=== PATIENT | female | born 1990 | race Caucasian/White ===

== ENCOUNTER 2019-10-11 17:19 | Outpatient (RCR) | payer BC, SELFPAY ==
[2019-10-11 17:57] LABS: Hematocrit 31.6 % (37.0-47.0); Hemoglobin 10.5 g/dL (12.0-15.0); Mean Corpuscular HGB Conc 33.2 g/dl (32-36); Mean Corpuscular Hemoglobin 29.3 pg (26-34); Mean Corpuscular Volume 88.3 fl (80-100); Mean Platelet Volume 10.1 fl (7.4-10.4); Platelet Count Result 233 k/mm3 (150-375); Red Blood Count 3.58 M/mm3 (4.2-5.4); Red Cell Distribution Width 13.4 % (11.5-14.5); White Blood Count 15.1 K/mm3 (4.5-10.0)
[2019-10-11 18:12] LABS: Alanine Aminotransferase 7 U/L (4-35); Aspartate Amino Transferase 16 U/L (14-36); Estimated Glomerular Filt Rate > 60; Uric Acid 2.3 mg/dL (2.5-7.5)
[2019-10-11 19:10] LABS: HIV 1/2 Ab P24 Ag Result Negative (Negative)
[2019-10-12 09:48] LABS: Rapid Plasma Reagin Non-Reactive (NonReactive)
[2019-10-13] MEDS: RHO(D) IMMUNE GLOBULIN 300 MCG SYRINGE IM (13:37)
== END 2020-01-09 23:59 | disposition home or self-care (01) ==
LOC: ANHLAB 17:19
PROVIDERS: PCP Obstetrics & Gynecology; Visit Provider Obstetrics & Gynecology
DX: Z29.13 Encounter for prophylactic Rho(D) immune globulin (principal); Z11.4 Encounter for screening for human immunodeficiency virus [HIV]; O36.0130 Maternal care for anti-D [Rh] antibodies, third trimester, not applicable or unspecified; R60.0 Localized edema; Z3A.00 Weeks of gestation of pregnancy not specified
CPT/HCPCS: 36415; 82565; 84450; 84460; 84550; 85027; 85461; 86592; 86703; 90384; 96372; G0432; J2790

== ENCOUNTER 2019-10-13 11:25 | Outpatient (CLI) | payer BC, SELFPAY ==
[2019-10-13 14:24] LABS: Glucose 1 Hour PP 50gm Dose 151 mg/dL
[2019-10-13 19:14] LABS: Total Volume 24 Hour Urine 1200 ml
[2019-10-13 19:15] LABS: Total Volume 24 Hour Urine 1200 ml
[2019-10-13 19:23] LABS: Total Protein Urine 24 Hr 156 MG/DAY (28-141); Total Protein Urine Random 13 mg/dL
[2019-10-13 19:24] LABS: Creatinine 24 Hour Urine 1.1 gm/24 (0.8-1.8); Creatinine Urine 98.2 mg/dL
[2019-10-14 06:31] LABS: HIV 1/2 Ab P24 Ag Result Negative (Negative)
== END 2019-10-13 11:26 | disposition home or self-care (01) ==
LOC: ANHLAB 11:27
PROVIDERS: PCP Obstetrics & Gynecology; Visit Provider Obstetrics & Gynecology
DX: O36.0130 Maternal care for anti-D [Rh] antibodies, third trimester, not applicable or unspecified (principal); Z36.89 Encounter for other specified antenatal screening
CPT/HCPCS: 36415; 81050; 82570; 82947; 84156; 86703; G0432

== ENCOUNTER 2019-11-04 11:49 | Outpatient (CLI) | payer OTHER, SELFPAY ==
[2019-11-04 12:10] VITALS: BP 146/88; PULSE 81; TEMP 36.6
[2019-11-04 12:31] VITALS: BP 135/84; PULSE 79
[2019-11-04 12:46] VITALS: BP 140/81; PULSE 69
[2019-11-04 12:50] VITALS: BP 140/81; PULSE 80
== END 2019-11-04 12:55 | disposition home or self-care (01) ==
LOC: ANHOBOP 11:58 → ANHOBPP 12:00
PROVIDERS: Visit Provider Obstetrics & Gynecology
DX: O42.90 Premature rupture of membranes, unspecified as to length of time between rupture and onset of labor, unspecified weeks of gestation (principal); Z3A.00 Weeks of gestation of pregnancy not specified
CPT/HCPCS: 59025; 84112; 99199

== ENCOUNTER 2019-11-18 15:48 | Outpatient (CLI) | payer OTHER, SELFPAY ==
[2019-11-18 16:16] VITALS: BP 152/90; PULSE 86
[2019-11-18 16:31] VITALS: BP 145/90; PULSE 84
[2019-11-18 16:34] VITALS: BP 152/90; PULSE 86
[2019-11-18 16:41] LABS: Basophils Absolute Auto 0.1 K/mm3 (0.0-0.1); Basophils Percent Auto 0.4 % (0.2-1.2); Eosinophils Absolute Auto 0.1 K/mm3 (0-0.3); Eosinophils Percent Auto 0.9 % (0-4.4); Hematocrit 32.6 % (37.0-47.0); Immature Granulocyte Absolute 0.05 K/mm3 (0.00-0.031); Immature Granulocyte Percent A 0.4 % (0-0.5); Lymphocytes Absolute Auto 2.01 K/mm3 (0.9-3.2); Lymphocytes Percent Auto 15.6 % (18.3-44.2); Mean Corpuscular HGB Conc 33.7 g/dl (32-36); Mean Corpuscular Hemoglobin 29.9 pg (26-34); Mean Corpuscular Volume 88.6 fl (80-100); Mean Platelet Volume 11.4 fl (7.4-10.4); Monocytes Absolute Auto 0.9 K/mm3 (0.1-0.6); Monocytes Percent Auto 6.8 % (2.6-8.5); Neutrophils Absolute Auto 9.8 K/mm3 (1.3-6.7); Neutrophils Percent Auto 75.9 % (45.5-73.1); Platelet Count Result 198 k/mm3 (150-375); Red Blood Count 3.68 M/mm3 (4.2-5.4); White Blood Count 12.9 K/mm3 (4.5-10.0)
[2019-11-18 16:44] LABS: Add Urine Microscopic? NO; Appearance Urine Clear (Clear); Bilirubin Urine Negative (Negative); Blood Urine Negative (Negative); Color Urine Yellow (Yellow); Glucose Urine UA Negative (Negative); Ketones Urine Negative (Negative); Leukocyte Esterase Ur Negative LEU/UL (Negative); Nitrate Urine Negative (Negative); Protein Urine Negative (Negative); Specific Grav Ur 1.018 (1.001-1.035); Urobilinogen Urine Negative mg/dL (<2.0)
[2019-11-18 16:46] VITALS: BP 138/78; PULSE 87
[2019-11-18 16:52] LABS: Creatinine Urine 100.7 mg/dL; Total Protein Urine Random 24 mg/dL
[2019-11-18 16:53] LABS: Alanine Aminotransferase 8 U/L (4-35); Albumin Level 3.6 g/dL (3.5-5.1); Alkaline Phosphatase 106 U/L (38-126); Anion Gap 10.1 mmol/L (7-16); Aspartate Amino Transferase 17 U/L (14-36); Bilirubin,Total < 0.1 mg/dL (0.2-1.3); Blood Urea Nitrogen 9 mg/dL (7-17); Calcium 9.9 mg/dL (8.4-10.2); Carbon Dioxide 23 mmol/L (22-30); Chloride 105 mmol/L (98-107); Estimated Glomerular Filt Rate > 60; Glucose 102 mg/dL (65-105); Potassium 4.1 mmol/L (3.4-5.0); Sodium 134 mmol/L (137-145); Uric Acid 3.2 mg/dL (2.5-7.5)
[2019-11-18 17:01] VITALS: BP 133/82; PULSE 79
[2019-11-18 17:16] VITALS: BP 134/84; PULSE 67
--- NOTE | 2019-11-18 17:25 | PC.NURSE ---
Dr. Masters informed of reactive NST, BP's, and lab results. Order for discharge received.
== END 2019-11-18 17:31 | disposition home or self-care (01) ==
LOC: ANHOBOP 15:55 → ANHLDR 15:57
PROVIDERS: Family Provider Obstetrics & Gynecology; Visit Provider Obstetrics & Gynecology
DX: O13.9 Gestational [pregnancy-induced] hypertension without significant proteinuria, unspecified trimester (principal); Z3A.00 Weeks of gestation of pregnancy not specified
CPT/HCPCS: 36415; 59025; 80053; 81003; 82570; 84156; 84550; 85025; 99199

== ENCOUNTER 2019-11-22 00:01 | Inpatient (IN) | payer OTHER, SELFPAY ==
[2019-11-22] VITALS (55 sets, daily range): BP systolic 123–169; BP diastolic 70–101; PULSE 76–99; TEMP 36.6–37.1; O2SAT 97–100; BMI 50.3
--- NOTE | 2019-11-22 02:30 | LDADM ---
This patient, Henrietta Han, was admitted to Labor/Delivery/Recovery 105 on 11/22/19 at 00:01. Plans for labor, pain management and were discussed with patient. Patient/family oriented to hospital policies and general routines including ID bracelet, bed and alarms, visiting hours, pain management, procedures, bathroom and other care routines, personal items, smoking policy, room service/diet and guest tray routines, infant security routines, and visiting hours. Patient/Family are encouraged to report perceived risks to care and to ask questions if they do not understand what they are told or what they should do. See OBIX for further documentation.
[2019-11-22] MEDS: DINOPROSTONE 10 MG VAG INSERT VAGINAL ×2 (02:45→17:21)
[2019-11-22 02:47] LABS: Basophils Absolute Auto 0.1 K/mm3 (0.0-0.1); Basophils Percent Auto 0.4 % (0.2-1.2); Eosinophils Absolute Auto 0.1 K/mm3 (0-0.3); Eosinophils Percent Auto 0.9 % (0-4.4); Hematocrit 34.9 % (37.0-47.0); Hemoglobin 11.7 g/dL (12.0-15.0); Immature Granulocyte Absolute 0.07 K/mm3 (0.00-0.031); Immature Granulocyte Percent A 0.5 % (0-0.5); Lymphocytes Absolute Auto 2.96 K/mm3 (0.9-3.2); Lymphocytes Percent Auto 21.5 % (18.3-44.2); Mean Corpuscular HGB Conc 33.5 g/dl (32-36); Mean Corpuscular Hemoglobin 29.5 pg (26-34); Mean Corpuscular Volume 87.9 fl (80-100); Mean Platelet Volume 11.6 fl (7.4-10.4); Monocytes Absolute Auto 0.8 K/mm3 (0.1-0.6); Neutrophils Absolute Auto 9.7 K/mm3 (1.3-6.7); Neutrophils Percent Auto 70.7 % (45.5-73.1); Platelet Count Result 213 k/mm3 (150-375); Red Blood Count 3.97 M/mm3 (4.2-5.4); Red Cell Distribution Width 13.9 % (11.5-14.5); White Blood Count 13.8 K/mm3 (4.5-10.0)
[2019-11-22 03:38] LABS: Amphetamine Screen Urine Negative (Negative); Barbiturate Screen Urine Negative (Negative); Benzodiazepines Screen Urine Negative (Negative); Cannabinoid Screen Urine Positive (Negative); Cocaine Screen Urine Negative (Negative); Methadone Screen Urine Negative (Negative); Opiate Screen Urine Negative (Negative); Phencyclidine Screen Urine Negative (Negative)
[2019-11-22 04:30] LABS: Glucose Point of Care 88 (65-105)
--- NOTE | 2019-11-22 07:05 | WPDANESEPP ---
Anes - Eval Pre Procedure Procedure: Labor epidural Date/Time: 11/22/19 07:05 Surgeon: Sonam Preop Diagnosis: pain during labor Pre Op Diagnosis: IOL Patient Data Age: 29 Gender: F Height: 1.52 m Weight: 117 kg Last Vital Signs Temp 36.6 C 11/22/19 04:26 Pulse 77 11/22/19 04:01 BP 143/89 H 11/22/19 04:01 Pulse Ox 100 11/22/19 02:13 Allergies Allergy/AdvReac Type Severity Reaction Status Date / Time No Known Allergies Allergy Verified 04/20/19 19:32 Home Medications Medication Instructions Recorded Confirmed Type PNV cmb#95-ferrous fumarate-FA 1 tablet PO DAILY 11/04/19 11/22/19 History [] ferrous sulfate 325 mg PO DAILY 11/04/19 11/22/19 History insulin NPH isoph U-100 human 12 unit SUBCUT BID 11/04/19 11/22/19 History [Humulin N NPH U-100 Insulin] Laboratory Tests 11/22/19 11/22/19 11/22/19 02:39 02:39 02:39 WBC 13.8 K/mm3 H K/mm3 (4.5-10.0) RBC 3.97 M/mm3 L M/mm3 (4.2-5.4) Hgb 11.7 g/dL L g/dL (12.0-15.0) Hct 34.9 % L % (37.0-47.0) MCV 87.9 fl fl (80-100) MCH 29.5 pg pg (26-34) MCHC 33.5 g/dl g/dl (32-36) RDW 13.9 % % (11.5-14.5) Plt Count 213 k/mm3 k/mm3 (150-375) MPV 11.6 fl H fl (7.4-10.4) Immature Gran % (Auto) 0.5 % % (0-0.5) Neut % (Auto) 70.7 % % (45.5-73.1) Lymph % (Auto) 21.5 % % (18.3-44.2) [place] % (Auto) 6.0 % % (2.6-8.5) Eos % (Auto) 0.9 % % (0-4.4) Baso % (Auto) 0.4 % % (0.2-1.2) Lymph # (Auto) 2.96 K/mm3 K/mm3 (0.9-3.2) [place] # (Auto) 0.8 K/mm3 H K/mm3 (0.1-0.6) Eos # (Auto) 0.1 K/mm3 K/mm3 (0-0.3) Baso # (Auto) 0.1 K/mm3 K/mm3 (0.0-0.1) Abs Immat Gran (auto) 0.07 K/mm3 H K/mm3 (0.00-0.031) Absolute Neuts (auto) 9.7 K/mm3 H K/mm3 (1.3-6.7) Absolute Nucleated RBC 0.0 K/mm3 K/mm3 (0.0-0.012) Nucleated RBC % 0.0 % % (0.0-0.2) POC Capillary Glucose Urine Opiates Screen Urine Methadone Screen Ur Barbiturates Screen Ur Phencyclidine Scrn Ur Amphetamine Screen U Benzodiazepines Scrn Urine Cocaine Screen U Cannabinoids Screen RPR Pending Blood Type O Negative Antibody Screen Positive Antibody Identification Passive Due to RH Imm Glob Antigen Identification Cancelled MIGDALIA, IgG Interpret Not Performed MIGDALIA, Poly Interpret Negative MIGDALIA, Complement Interp Not Performed 11/22/19 11/22/19 03:06 04:24 WBC RBC Hgb Hct MCV MCH MCHC RDW Plt Count MPV Immature Gran % (Auto) Neut % (Auto) Lymph % (Auto) Riley % (Auto) Eos % (Auto) Baso % (Auto) Lymph # (Auto) Riley # (Auto) Eos # (Auto) Baso # (Auto) Abs Immat Gran (auto) Absolute Neuts (auto) Absolute Nucleated RBC Nucleated RBC % POC Capillary Glucose 88 mg/dl mg/dl (65-105) Urine Opiates Screen Negative (Negative) Urine Methadone Screen Negative (Negative) Ur Barbiturates Screen Negative (Negative) Ur Phencyclidine Scrn Negative (Negative) Ur Amphetamine Screen Negative (Negative) U Benzodiazepines Scrn Negative (Negative) Urine Cocaine Screen Negative (Negative) U Cannabinoids Screen Positive A (Negative) RPR Blood Type Antibody Screen Antibody Identification Antigen Identification MIGDALIA, IgG Interpret MIGDALIA, Poly Interpret MIGDALIA, Complement Interp Pat
--- NOTE | 2019-11-22 07:47 | WPDOBADMIT ---
Obstetrics - Admit Note Admission Note: 29 y/o G1 @ 37 weeks here for induction of labor d/t gestational hypertension. is also complicated by insulin controlled GDM. Plan cervidil and pitocin Anticipate record reviewed. No pertinent additions to the history and/or any subsequent changes in the physical findings that are not consistent with the expected course of the were found. Additions to the history and/or subsequent changes in the physical findings follow. None.
[2019-11-22 08:21] LABS: Rapid Plasma Reagin Non-Reactive (NonReactive)
[2019-11-22 10:36] LABS: Glucose Point of Care 106 (65-105)
[2019-11-22 16:04] LABS: Glucose Point of Care 117 (65-105)
[2019-11-22 18:40] LABS: Glucose Point of Care 135 (65-105)
[2019-11-22 19:08] LABS: Basophils Absolute Auto 0.1 K/mm3 (0.0-0.1); Basophils Percent Auto 0.4 % (0.2-1.2); Eosinophils Absolute Auto 0.1 K/mm3 (0-0.3); Eosinophils Percent Auto 0.5 % (0-4.4); Hemoglobin 10.1 g/dL (12.0-15.0); Immature Granulocyte Absolute 0.05 K/mm3 (0.00-0.031); Immature Granulocyte Percent A 0.4 % (0-0.5); Lymphocytes Absolute Auto 1.98 K/mm3 (0.9-3.2); Lymphocytes Percent Auto 14.4 % (18.3-44.2); Mean Corpuscular HGB Conc 33.7 g/dl (32-36); Mean Corpuscular Hemoglobin 29.8 pg (26-34); Mean Corpuscular Volume 88.5 fl (80-100); Mean Platelet Volume 11.5 fl (7.4-10.4); Monocytes Absolute Auto 0.9 K/mm3 (0.1-0.6); Monocytes Percent Auto 6.5 % (2.6-8.5); Neutrophils Absolute Auto 10.7 K/mm3 (1.3-6.7); Neutrophils Percent Auto 77.8 % (45.5-73.1); Platelet Count Result 200 k/mm3 (150-375); Red Blood Count 3.39 M/mm3 (4.2-5.4); Red Cell Distribution Width 13.9 % (11.5-14.5); White Blood Count 13.8 K/mm3 (4.5-10.0)
[2019-11-22 19:19] LABS: Alanine Aminotransferase 8 U/L (4-35); Albumin Level 3.2 g/dL (3.5-5.1); Alkaline Phosphatase 99 U/L (38-126); Aspartate Amino Transferase 16 U/L (14-36); Bilirubin,Total 0.3 mg/dL (0.2-1.3); Blood Urea Nitrogen 10 mg/dL (7-17); Calcium 8.6 mg/dL (8.4-10.2); Carbon Dioxide 21 mmol/L (22-30); Chloride 105 mmol/L (98-107); Estimated CRCL calculation 122 ml/min; Estimated Glomerular Filt Rate > 60; Glucose 119 mg/dL (65-105); Sodium 132 mmol/L (137-145); Uric Acid 3.8 mg/dL (2.5-7.5)
[2019-11-23] VITALS (147 sets, daily range): BP systolic 99–231; BP diastolic 51–171; PULSE 61–119; TEMP 36.6–37.4; O2SAT 94–100
[2019-11-23 00:17] LABS: Glucose Point of Care 86 (65-105)
[2019-11-23] MEDS: LACTATED RINGERS 1,000 ML 125 ML IV CONT ×3 (00:45→23:52)
[2019-11-23] MEDS: OXYTOCIN 30 UNITS/NS 500 ML 30 UNITS/500 ML BAG IV CONT ×2 (02:19→21:13)
[2019-11-23 05:23] LABS: Glucose Point of Care 102 (65-105)
--- NOTE | 2019-11-23 07:48 | PM.OBPNLAB ---
Pain Control Date/time seen: 11/23/19 07:48 pt comfortable FHR cat 1, contractions irregular, SVE /-2 anterior, continue pitocin
[2019-11-23 12:17] LABS: Glucose Point of Care 88 (65-105)
[2019-11-23 15:25] LABS: Glucose Point of Care 81 (65-105)
--- NOTE | 2019-11-23 17:53 | PM.OBPNLAB ---
Pain Control Date/time seen: 11/23/19 17:53 FHR cat 1, contractions hard to monitor SVE 1-2//-2, Arom large amount of clear odorless fluid, IUPC placed
[2019-11-23 22:47] LABS: Glucose Point of Care 74 (65-105)
[2019-11-24] VITALS (251 sets, daily range): BP systolic 100–164; BP diastolic 55–129; PULSE 77–146; RESP 16–20; TEMP 35.9–37.7; O2SAT 91–100
[2019-11-24 00:44] LABS: Glucose Point of Care 89 (65-105)
[2019-11-24 04:11] LABS: Glucose Point of Care 90 (65-105)
--- NOTE | 2019-11-24 08:17 | PM.OBPNLAB ---
Pain Control Date/time seen: 11/24/19 08:17 VSS Contractions regular. MVU's just under 200 per nurse FHR category 1 Cervix 5//-2 Pt doing well and states she has been able to rest. Continue with induction
[2019-11-24] MEDS: AMPICILLIN 2 GM/NS 100 ML 2 GM/100 ML BAG IVPB (10:32)
[2019-11-24 10:51] LABS: Glucose Point of Care 96 (65-105)
--- NOTE | 2019-11-24 10:57 | PM.OBPNVD ---
OB - PN: Subj Subjective Date/time seen: 11/24/19 10:57 This patient is a 29-year-old primipara who has been in labor for about 20 hours. She has had cervical ripening twice. She has significant amount of edema in the vulva and cervix. There is inadequate labor and there is nonreassuring heart tones. I have discussed with the patient reviewed perform delivery. She understands the risks, benefits, and alternatives. She has completed the informed consent process is ready to proceed. OB - PN: Obj Data Labs CBC & Chem 7: 11/22/19 19:02 11/22/19 19:02 Labs: Laboratory Results - last 24 hr 11/23/19 11/23/19 11/23/19 10:54 15:22 22:36 POC Capillary Glucose 88 81 74 11/24/19 11/24/19 11/24/19 00:41 04:09 10:30 POC Capillary Glucose 89 90 96 OB - PN A/P Assessment and Plan (1) Non-reassuring status, delivered, current hospitalization: Code(s): O75.89 - Other specified complications of labor and delivery Status: Acute (2) Failure to progress in first stage of labor: Status: Acute Assessment and Plan: This patient is a 29-year-old primipara who has been in labor for about 20 hours. She has had cervical ripening twice. She has significant amount of edema in the vulva and cervix. There is inadequate labor and there is nonreassuring heart tones. I have discussed with the patient reviewed perform delivery. She understands the risks, benefits, and alternatives. She has completed the informed consent process is ready to proceed. Time Spent With Patient Time: Total time spent is greater than 50% in coordination of care (as documented) at patient's floor/unit and/or counseling patient: Review of Systems Constitutional: Constitutional: Reports no additional constitutional complaints, Denies fatigue, Denies headache(s), Denies lethargy and Denies weakness Eyes: Eyes: Reports no additional eye complaints, Denies blurry vision and Denies photophobia ENT: Reports as per HPI, Denies headache(s) and Denies neck pain Cardiovascular: Cardiovascular: Denies chest pain, Denies diaphoresis, Denies leg edema, Denies palpitations and Denies dyspnea Respiratory: Respiratory: Denies hemoptysis, Denies dyspnea and Denies wheezing Gastrointestinal: Gastrointestinal: Denies abdominal pain, Denies melena, Denies bloating, Denies hematochezia, Denies nausea and Denies vomiting Genitourinary: Genitourinary: Reports no additional female genitourinary complaints Musculoskeletal: Musculoskeletal: Denies joint swelling, Denies neck pain, Denies numbness and Denies stiffness Neurologic: Denies Abnormal speech present, Denies confusion, Denies headache(s), Denies numbness and Denies weakness Psychiatric: Psychiatric: Denies anxiety, Denies confusion, Denies depression, Denies homicidal ideation and Denies suicidal ideation Endocrine: Endocrine: Denies fatigue and Denies palpitations Allergic/Immunologic: Allergic/Immunologic: Denies wheezing Exam Const: General: comfortable, no acute distress and alert Resp: Effort & Inspection: normal respiratory effort Auscultation: no crackles, no rales and no rhonchi Cardio: Rate: regular rate Heart sounds: no click, no murmurs and no rubs GI: Inspection: non-distended GI Palp: No Tenderness to palpation present (GI) Auscultation: normal bowel sounds Other: Incision - CDI Extrem: General: normal to inspection, no pedal edema and no calf tenderness
[2019-11-24] MEDS: ceFAZolin 2 GM/D5W 50 ML 2 GM/50 ML BAG IVPB (11:39)
--- NOTE | 2019-11-24 12:36 | P.OP_ITS ---
Procedure Note - Detailed Date of procedure: 11/24/19 Pre-op diagnosis: IOL Nonreassuring heart tones, failure to progress Post-op diagnosis: same ( malposition of the head) Procedure performed: low-transverse delivery Description of procedure: The patient was taken the operating room. She was prepped and draped in the dorsal supine position with leftward tilt after induction of spinal anesthetic. When anesthesia was found to be adequate a low- transverse skin incision was made and carried down to the level the fascia with the knife. The fascial incision was made at the midline with a scalpel. The fascial incision was extended laterally with Carrington scissors. The fascia was tented upward superior and inferior with Reuben clamps. The rectus muscles were dissected off bluntly. The rectus muscles at the midline. The preperitoneal fat was dissected bluntly at the superior aspect of the separate the rectus muscles. The peritoneal cavity was entered bluntly in the same area. The peritoneal incision was extended superior and inferior with good visualization of bladder. Bladder blade was inserted. A low-transverse incision was made on the uterus with the scalpel. It was carried down the level of the amniotic cavity with a knife. The amniotic cavity bluntly. The uterine incision was made laterally with blunt traction. The was delivered. The cord was clamped and cut. The was handed off to waiting pediatric staff. Cord bloods were obtained. The placenta was removed manually. The uterus was exteriorized. Uterus cleared of all clots and debris. Uterus closed in 0 Vicryl in a running locked fashion. An imbricating layer of 0 Vicryl was also placed on the to bolster the closure. The uterus was returned to the abdomen. The gutters were cleared of all clots and debris. The fascia was closed 0 Vicryl in a running fashion. Subcutaneous tissue was irrigated and bleeding areas were cauterized. The skin was closed with subcuticular absorbable bhargavi. The incision was covered with derma hector. The patient tolerated the procedure well. She was taken recovery room stable condition. Sponge, lap, needle counts were correct x2. Anesthesia: spinal Surgeon: Maria Elena Masters MD Estimated blood loss (mL): 500 Drains: No Packing: No Pathology: none sent Complications: No immediate complications Condition: stable Disposition: floor Findings: Normal maternal anatomy. Average size infant with normal Apgars. malposition of head, direct OP
[2019-11-24] MEDS: OXYTOCIN 30 UNITS/NS 500 ML 30 UNITS/500 ML BAG 125 UNITS IV CONT (15:20)
--- NOTE | 2019-11-24 15:29 | PC.NURSE ---
Patient transferred to post room # 286 via stretcher. PT introductions made and plan of care discussed per postop c section, pain management, botte feeding, daily care activities and blod sugar policy. Support person present. Oriented to unit, room, information board, rooming in, admission packet and security measures. Patient verbalizes understanding.
[2019-11-24] MEDS: KETOROLAC 30 MG/ML VIAL (*BKC) IV PUSH (16:30)
[2019-11-24] MEDS: SIMETHICONE 80 MG TAB.CHEW PO (16:30)
[2019-11-24] MEDS: POLYSACCHARIDE IRON COMPLEX 150 MG CAPSULE PO (17:32)
[2019-11-24] MEDS: DOCUSATE SODIUM 100 MG CAPSULE PO (17:32)
[2019-11-24] MEDS: LORATADINE 10 MG TABLET (17:32)
[2019-11-25] MEDS: IBUPROFEN 600 MG TABLET PO ×3 (00:18→17:23)
[2019-11-25 04:30] VITALS: BP 112/77; PULSE 69; RESP 16; TEMP 36.4; O2SAT 96
[2019-11-25 05:18] LABS: Basophils Percent Auto 0.1 % (0.2-1.2); Eosinophils Percent Auto 0.2 % (0-4.4); Hematocrit 27.7 % (37.0-47.0); Immature Granulocyte Absolute 0.11 K/mm3 (0.00-0.031); Immature Granulocyte Percent A 0.5 % (0-0.5); Lymphocytes Absolute Auto 1.51 K/mm3 (0.9-3.2); Lymphocytes Percent Auto 7.5 % (18.3-44.2); Mean Corpuscular HGB Conc 32.5 g/dl (32-36); Mean Corpuscular Hemoglobin 29.2 pg (26-34); Mean Corpuscular Volume 89.9 fl (80-100); Mean Platelet Volume 11.6 fl (7.4-10.4); Monocytes Absolute Auto 1.2 K/mm3 (0.1-0.6); Monocytes Percent Auto 5.9 % (2.6-8.5); Neutrophils Absolute Auto 17.3 K/mm3 (1.3-6.7); Neutrophils Percent Auto 85.8 % (45.5-73.1); Platelet Count Result 181 k/mm3 (150-375); Red Blood Count 3.08 M/mm3 (4.2-5.4); Red Cell Distribution Width 14.3 % (11.5-14.5); White Blood Count 20.2 K/mm3 (4.5-10.0)
--- NOTE | 2019-11-25 07:54 | PM.OBPNVD ---
OB - PN: Subj Subjective Date/time seen: 11/25/19 07:54 Patient comments: no complaints, pain well controlled, tolerating diet and flatus present OB - PN: Obj Data Labs CBC & Chem 7: 11/25/19 04:39 11/22/19 19:02 Labs: Laboratory Results - last 24 hr 11/24/19 11/25/19 11/25/19 10:30 04:39 04:39 WBC 20.2 H RBC 3.08 L Hgb 9.0 L Hct 27.7 L MCV 89.9 MCH 29.2 MCHC 32.5 RDW 14.3 Plt Count 181 MPV 11.6 H Immature Gran % (Auto) 0.5 Neut % (Auto) 85.8 H Lymph % (Auto) 7.5 L [place] % (Auto) 5.9 Eos % (Auto) 0.2 Baso % (Auto) 0.1 L Lymph # (Auto) 1.51 [place] # (Auto) 1.2 H Eos # (Auto) 0.0 Baso # (Auto) 0.0 Abs Immat Gran (auto) 0.11 H Absolute Neuts (auto) 17.3 H Absolute Nucleated RBC 0.0 Nucleated RBC % 0.0 POC Capillary Glucose 96 Blood Type O Negative Antibody Screen TNP Screen Negative Baby's Blood Type O pos Baby's MIGDALIA Negative Doses of RhIg Required 1 OB - PN A/P Plan day: 1 Comments: Post Op LTCS - no problems, routine recovery Time Spent With Patient Time: Total time spent is greater than 50% in coordination of care (as documented) at patient's floor/unit and/or counseling patient: Exam Const: General: cooperative, healthy appearing, comfortable and no acute distress Resp: Auscultation: no crackles, no rales, no rhonchi and no wheezes Cardio: Rhythm: regular rhythm Heart sounds: no click and no murmurs GI: Inspection: non-distended Auscultation: normal bowel sounds Extrem: General: normal to inspection, no pedal edema and no calf tenderness
[2019-11-25 07:55] VITALS: BP 119/71; PULSE 86; RESP 18; TEMP 36.9; O2SAT 99
[2019-11-25] MEDS: MULTIVIT/MIN/PREN/FOL AC/IRON TABLET 1 TAB PO (09:08)
[2019-11-25] MEDS: POLYSACCHARIDE IRON COMPLEX 150 MG CAPSULE PO ×2 (09:08→17:22)
[2019-11-25] MEDS: DOCUSATE SODIUM 100 MG CAPSULE PO ×2 (09:08→17:22)
[2019-11-25] MEDS: SIMETHICONE 80 MG TAB.CHEW PO ×2 (09:09→17:22)
--- NOTE | 2019-11-25 10:12 | WPDANLDPN2 ---
Anes-Prog Note L&D Date/Time: 11/25/19 10:12 Comfortable throughout: labor and section Neuraxial method: epidural Epidural/Spinal procedure site: clean & non-tender Neuro status: Neuro function grossly intact. Cardiovascular status: normal Respiratory status: normal Airway patency: baseline Mental status: baseline Post-Op hydration status: normal Vital Signs: Last Vital Signs Temp 36.9 C 11/25/19 07:55 Pulse 86 11/25/19 07:55 Resp 18 11/25/19 07:55 BP 119/71 11/25/19 07:55 Pulse Ox 99 11/25/19 07:55 I/O: Intake & Output 11/24/19 11/25/19 11/25/19 23:59 07:59 15:59 Intake Total 900 240 Output Total 330 1200 Balance 570 -960 Post-procedural complaints: none Patient feedback: Patient satisfied with anesthetic care.
--- NOTE | 2019-11-25 10:13 | WPDANLDNPN2 ---
Anes-Prog Note L&D-Neuraxial Date/Time: 11/25/19 10:13 Neuraxial medications: epidural PF morphine Opiod-related complaints: none Patient feedback: Patient satisfied with post-operative pain management.
[2019-11-25 12:20] VITALS: BP 134/83; PULSE 87; RESP 16; TEMP 36.8; O2SAT 98
[2019-11-25] MEDS: RHO(D) IMMUNE GLOBULIN 300 MCG SYRINGE IM (14:45)
[2019-11-25 19:50] VITALS: BP 142/84; PULSE 96; RESP 16; TEMP 36.9; O2SAT 97
--- NOTE | 2019-11-25 22:00 | PC.NURSE ---
Patient viewed the discharge video Mother & Baby Care, The First Two Weeks . Patient was given the opportunity and encouraged to ask questions. Patient verbalized understanding of information shared and has been given the mother/baby guide for home reference.
[2019-11-26] MEDS: IBUPROFEN 600 MG TABLET PO ×2 (05:23→12:08)
--- NOTE | 2019-11-26 07:18 | PM.OBPNVD ---
OB - PN: Subj Subjective Date/time seen: 11/26/19 07:18 Patient comments: no complaints, pain well controlled, incisional pain, tolerating diet and flatus present OB - PN: Obj Data Labs CBC & Chem 7: 11/25/19 04:39 11/22/19 19:02 Labs: Laboratory Results - last 24 hr 11/25/19 04:39 Blood Type O Negative Antibody Screen TNP Screen Negative Baby's Blood Type O pos Baby's MIGDALIA Negative Doses of RhIg Required 1 OB - PN A/P Plan day: 2 Plan: routine care and discharge home Comments: POD#2 LTCS - no problems, Time Spent With Patient Time: Total time spent is greater than 50% in coordination of care (as documented) at patient's floor/unit and/or counseling patient: Exam Const: General: comfortable, no acute distress and alert Resp: Effort & Inspection: normal respiratory effort Auscultation: no crackles, no rales and no rhonchi Cardio: Rate: regular rate Heart sounds: no click, no murmurs and no rubs GI: Inspection: non-distended GI Palp: No Tenderness to palpation present (GI) Auscultation: normal bowel sounds Other: Incision - CDI Extrem: General: normal to inspection, no pedal edema and no calf tenderness
--- NOTE | 2019-11-26 07:19 | P.DS_ITS ---
DS: Admitting Diagnosis Admitting Diagnosis Admitting Diagnosis: Other specified complications of labor and delivery DS: Discharge Diagnosis Discharge Diagnosis (1) delivery delivered: Code(s): O82 - Encounter for delivery without indication Status: Acute (2) Failure to progress in first stage of labor: Status: Acute (3) Non-reassuring status, delivered, current hospitalization: Code(s): O75.89 - Other specified complications of labor and delivery Status: Acute OB - DS: Summary OB Procedures : None OB Procedures Intrapartum: OB Procedures: : None Peripartum Data Delivery Method: Section Procedures: Procedures Operation Date: 11/24/19 11:30 Actual Procedures Side Surgeon p Section Maria Elena Masters MD complications: none Status at Discharge Functional status at discharge: independent ambulation Time Spent with Patient Time attestation: Total time spent providing and/or coordinating discharge services: DS: Data Data Completed and Pending Pending studies at discharge: Pending at discharge 11/24/19 12:52 Surgical [PTH] Routine Labs on day of discharge: Labs from last 24 hours 11/25/19 04:39 Blood Type O Negative Antibody Screen TNP Screen Negative Baby's Blood Type O pos Baby's MIGDALIA Negative Doses of RhIg Required 1 Discharge Plan Discharge Discharging Clinician: Maria Elena Masters Patient Disposition: Home, Self-Care Activity: pelvic rest Diet: regular Patient Instructions: Antibiotic Form Stand Alone Forms: General Discharge Information Follow-up/Referrals: Maria Elena Masters MD [Physician] - Discharge Medications: New hydrocodone-acetaminophen 5-325 mg tablet 1 - 2 tablet PO Q4H PRN (Reason: pain) Qty: 25 RF: 0 Continued ferrous sulfate 325 mg (65 mg iron) Tablet 325 mg PO DAILY RF: 0 PNV cmb#95-ferrous fumarate-FA [] 28 mg iron- 800 mcg Tablet 1 tablet PO DAILY RF: 0 Discontinued Humulin N NPH U-100 Insulin 100 unit/mL suspension 12 unit SUBCUT BID RF: 0 Date of admission: 11/22/19 00:01 Primary Care Provider: PHYSICIAN,ELECTRONICS DESIGN ENGINEER Admitting Provider: Maria Elena Masters Attending physician on admission: Maria Elena Masters
[2019-11-26] MEDS: MULTIVIT/MIN/PREN/FOL AC/IRON TABLET 1 TAB PO (08:50)
[2019-11-26] MEDS: DOCUSATE SODIUM 100 MG CAPSULE PO (08:50)
[2019-11-26] MEDS: POLYSACCHARIDE IRON COMPLEX 150 MG CAPSULE PO (08:51)
[2019-11-26 08:59] VITALS: BP 138/83; PULSE 91; RESP 18; TEMP 37.2; O2SAT 98
--- NOTE | 2019-11-26 11:17 | PCCCNOTE ---
Social Service Consult: Met with pt. and EDIL James today to discuss resources. Pt. lives at home with James. This is her first baby. James has three other children. Pt. reports family support including James. Pt. has everything she needs including a crib, carseat, clothing, and bottles. Pt. is currently on [facility] services and plans to add the baby at discharge. Pt. is aware of how to contact the [facility] office. Provided resources to the pt. Pt. reports recreational marijuana use. Mother was positive at admission, baby's UDS was negative. Meconium pending. Pt. denies any concerns regarding marijuana use. Pt. denies any further case management needs.
== END 2019-11-26 13:05 | disposition home or self-care (01) | DRG 540 ==
LOC: ANHLDR 00:33 → ANHOB2 11-24 15:37
PROVIDERS: Advanced Practice Midwife; Admitting Provider Obstetrics & Gynecology; Visit Provider Obstetrics & Gynecology
PROC: 10D00Z1 Extraction of Products of Conception, Low, Open Approach (ICD-10-PCS; CPT 59514; principal; 2019-11-24 11:30)
DX: O62.0 Primary inadequate contractions (principal); O62.1 Secondary uterine inertia; O76 Abnormality in fetal heart rate and rhythm complicating labor and delivery; O24.424 Gestational diabetes mellitus in childbirth, insulin controlled; O13.4 Gestational [pregnancy-induced] hypertension without significant proteinuria, complicating childbirth; O69.81X0 Labor and delivery complicated by cord around neck, without compression, not applicable or unspecified; Z3A.37 37 weeks gestation of pregnancy; Z37.0 Single live birth
CPT/HCPCS: 36415; 80053; 80307; 84550; 85025; 85461; 86592; 86850; 86880; 86900; 86901; 86902; 88307; 90384; A9270; J0131; J0290; J0690; J1200; J1885; J2274; J2405; J2590; J2704; J2790; J2795; J3010; J7120

== ENCOUNTER 2019-12-02 12:00 | Outpatient (CLI) | payer OTHER, SELFPAY ==
[2019-12-02] VITALS (20 sets, daily range): BP systolic 129–169; BP diastolic 84–105; PULSE 67–78
[2019-12-02 12:45] LABS: Basophils Absolute Auto 0.1 K/mm3 (0.0-0.1); Basophils Percent Auto 0.8 % (0.2-1.2); Eosinophils Absolute Auto 0.5 K/mm3 (0-0.3); Eosinophils Percent Auto 5.2 % (0-4.4); Hematocrit 30.3 % (37.0-47.0); Hemoglobin 9.9 g/dL (12.0-15.0); Immature Granulocyte Absolute 0.07 K/mm3 (0.00-0.031); Immature Granulocyte Percent A 0.8 % (0-0.5); Lymphocytes Absolute Auto 2.11 K/mm3 (0.9-3.2); Lymphocytes Percent Auto 22.6 % (18.3-44.2); Mean Corpuscular HGB Conc 32.7 g/dl (32-36); Mean Corpuscular Hemoglobin 29.4 pg (26-34); Mean Corpuscular Volume 89.9 fl (80-100); Mean Platelet Volume 9.5 fl (7.4-10.4); Monocytes Absolute Auto 0.5 K/mm3 (0.1-0.6); Neutrophils Absolute Auto 6.1 K/mm3 (1.3-6.7); Neutrophils Percent Auto 65.6 % (45.5-73.1); Platelet Count Result 427 k/mm3 (150-375); Red Blood Count 3.37 M/mm3 (4.2-5.4); White Blood Count 9.3 K/mm3 (4.5-10.0)
[2019-12-02 12:57] LABS: Alanine Aminotransferase 17 U/L (4-35); Albumin Level 3.7 g/dL (3.5-5.1); Alkaline Phosphatase 91 U/L (38-126); Anion Gap 7 mmol/L (8-16); Aspartate Amino Transferase 20 U/L (14-36); Bilirubin,Total 0.1 mg/dL (0.2-1.3); Blood Urea Nitrogen 12 mg/dL (7-17); Calcium 8.5 mg/dL (8.4-10.2); Carbon Dioxide 28 mmol/L (22-30); Chloride 102 mmol/L (98-107); Estimated Glomerular Filt Rate > 60; Glucose 89 mg/dL (65-105); Potassium 4.7 mmol/L (3.4-5.0); Sodium 137 mmol/L (137-145); Uric Acid 4.3 mg/dL (2.5-7.5)
[2019-12-02 13:02] LABS: Add Urine Microscopic? YES; Appearance Urine Clear (Clear); Bilirubin Urine Negative (Negative); Blood Urine 2+ (Negative); Color Urine Straw (Yellow); Glucose Urine UA Negative (Negative); Ketones Urine Negative (Negative); Leukocyte Esterase Ur Trace LEU/UL (NEGATIVE); Mucus Urine Rare /lpf; Nitrate Urine Negative (Negative); Protein Urine Negative (Negative); Squamous Epithelial Cell Urine Few /hpf (Few); Urobilinogen Urine Negative mg/dL (<2.0); WBC Urine 0-3 /hpf (0-3)
[2019-12-02 13:08] LABS: Creatinine Urine 46.1 mg/dL; Total Protein Urine Random 13 mg/dL
[2019-12-02] MEDS: LABETALOL HCL 100 MG TABLET 400 MG PO (14:05)
--- NOTE | 2019-12-02 17:37 | PM.IMHP ---
H&P: HPI History of Present Illness Date/Time: 12/02/19 17:37 This patient is a 29-year-old female who is approximately 1 week from a delivery. She has some gestational hypertension during the . She markedly elevated pressures in the office. She was sent to the hospital for observation. She denies any headache, blurry vision, epigastric pain. She does report some worsening edema. She denies any chest pain or shortness of breath she denies any nausea, vomiting, fever, chills. Chief complaint: elevated bp Narrative: Henrietta Han is a 29 year old female Review of Systems Constitutional: Constitutional: Reports no additional constitutional complaints, Denies fatigue, Denies headache(s), Denies lethargy and Denies weakness Eyes: Eyes: Reports no additional eye complaints, Denies blurry vision and Denies photophobia ENT: Reports as per HPI, Denies headache(s) and Denies neck pain Cardiovascular: Cardiovascular: Denies chest pain, Denies diaphoresis, Denies leg edema, Denies palpitations and Denies dyspnea Respiratory: Respiratory: Denies hemoptysis, Denies dyspnea and Denies wheezing Gastrointestinal: Gastrointestinal: Denies abdominal pain, Denies melena, Denies bloating, Denies hematochezia, Denies nausea and Denies vomiting Genitourinary: Genitourinary: Reports no additional female genitourinary complaints Musculoskeletal: Musculoskeletal: Denies joint swelling, Denies neck pain, Denies numbness and Denies stiffness Neurologic: Denies Abnormal speech present, Denies confusion, Denies headache(s), Denies numbness and Denies weakness Psychiatric: Psychiatric: Denies anxiety, Denies confusion, Denies depression, Denies homicidal ideation and Denies suicidal ideation Endocrine: Endocrine: Denies fatigue and Denies palpitations Allergic/Immunologic: Allergic/Immunologic: Denies wheezing PMFSH Past Medical History Medical History (Updated 12/02/19 @ 17:38 by Maria Elena Masters MD) Gestational diabetes 1 Healthy female adult IUP (intrauterine ), incidental Morbid obesity with BMI of 50.0-59.9, adult Surgical History Surgical History No history of previous surgery Family History Family History (Updated 11/22/19 @ 07:44 by Miranda Stanley RN) Mother Chronic obstructive pulmonary disease Social History Social History Smoking status: Never smoker Substance use: never Gender identity (if verbalized by the patient): Female Spiritual care concerns: No Meds Home Medications and Allergies Home Medications Medication Instructions Recorded Confirmed Type PNV cmb#95-ferrous fumarate-FA 1 tablet PO DAILY 11/04/19 11/22/19 History [] ferrous sulfate 325 mg PO DAILY 11/04/19 11/22/19 History hydrocodone-acetaminophen 1 - 2 tablet PO Q4H PRN #25 tablet 11/26/19 Rx Allergies Allergy/AdvReac Type Severity Reaction Status Date / Time No Known Allergies Allergy Verified 04/20/19 19:32 Vital Signs Vital Signs - 24 hr 12/02/19 12:15 12/02/19 12:32 12/02/19 13:30 Pulse Rate 78 72 73 Blood Pressure 156/94 H 146/98 H 169/105 H 12/02/19 13:39 12/02/19 13:46 12/02/19 14:05 Pulse Rate 74 74 69 Blood Pressure 150/99 H 159/96 H 12/02/19 14:06 12/02/19 14:31 12/02/19 15:01 Pulse Rate 69 71 71 Blood Pressure 165/94 H 167/88 H 129/85 12/02/19 15:16 12/02/19 15:31 12/02/19 16:01 Pulse Rate 73 75 68 Blood Pressure 138/90 147/84 H 140/84 12/02/19 16:31 12/02/19 17:01 12/02/19 17:21 Pulse Rate 67 71 74 Blood Pressure 156/89 H 156/96 H 138/93 H 12/02/19 17:30 Pulse Rate 73 Blood Pressure 138/86 Exam Const: General: healthy appearing, comfortable and no acute distress; No confusion Orientation/consciousness: No confusion Eyes: Direct Ophthalmoscopy: No photophobia Resp: Auscultation: clear to auscultation
--- NOTE | 2019-12-02 17:52 | PC.NURSE ---
1730--Reported BP's to Dr. Masters. Will continue to monitor until 1829. Pt may order dinner.
--- NOTE | 2019-12-02 18:36 | PC.NURSE ---
Dr. Masters updated on patient BPs. Patient denies any s/s of HIP. Discharge order received.
--- NOTE | 2019-12-02 18:58 | PC.NURSE ---
HIP precautions reviewed with patient. Patient instructed to go to pharmacy to molded goods spot picker Labetalol prescription. Patient educated on Labetalol. Patient instructed to call office for follow-up.
== END 2019-12-02 18:58 | disposition home or self-care (01) ==
LOC: ANHOBOP 12:03 → ANHOBPP 12:07
PROVIDERS: Visit Provider Obstetrics & Gynecology
DX: O13.9 Gestational [pregnancy-induced] hypertension without significant proteinuria, unspecified trimester (principal); Z3A.00 Weeks of gestation of pregnancy not specified
CPT/HCPCS: 36415; 80053; 81001; 82570; 84156; 84550; 85025; 87086; 87088; 99199; A9270

== ENCOUNTER 2021-02-13 12:05 | Outpatient (RCR) | payer OTHER, SELFPAY ==
[2021-02-13 13:39] LABS: Hematocrit 37.7 % (37.0-47.0); Hemoglobin 12.7 g/dL (12.0-15.0)
[2021-02-13 13:48] LABS: Glucose 1 Hour PP 50gm Dose 166 mg/dL
[2021-02-13 14:29] LABS: HIV 1/2 Ab P24 Ag Result Negative (Negative)
[2021-02-14 08:30] LABS: Rapid Plasma Reagin Non-Reactive (NonReactive)
[2021-02-14] MEDS: RHO(D) IMMUNE GLOBULIN 300 MCG/2 ML SYRINGE IM (12:56)
== END 2021-05-14 23:59 | disposition home or self-care (01) ==
LOC: ANHLAB 12:05
PROVIDERS: Visit Provider Obstetrics & Gynecology
DX: Z11.4 Encounter for screening for human immunodeficiency virus [HIV] (principal); Z29.13 Encounter for prophylactic Rho(D) immune globulin; O36.0190 Maternal care for anti-D [Rh] antibodies, unspecified trimester, not applicable or unspecified; Z3A.00 Weeks of gestation of pregnancy not specified
CPT/HCPCS: 36415; 82947; 85014; 85018; 85461; 86592; 86703; 90384; 96372; G0432; J2790

== ENCOUNTER 2021-03-30 10:25 | Observation (INO) | payer OTHER, SELFPAY ==
[2021-03-30] VITALS (7 sets, daily range): BP systolic 113–133; BP diastolic 67–84; PULSE 72–81
--- NOTE | ~2021-03-30 | US_ITS ---
EXAMINATION: US OB BPP wo non-stress DATE: 03/30/2021 13:15 INDICATION: decelerations during third trimester TECHNIQUE: Real-time pelvic ultrasound was performed. The interpreting radiologist was not present fo r the study. COMPARISON: None. FINDINGS: There is a single living fetus in vertex presentation. The placenta is fundal. heart rate is 14 3 beats per minute (bpm). Biophysical profile performed by the technologist: breathing (30 sec sustained breathing in 30 minutes): 2 out of 2 movement (3 gross body movements in 30 minutes): 2 out of 2 tone (one episode of [id number] limb movement): 2 out of 2 Amniotic fluid pocket (2 cm): 2 out of 2 Total score: 8 out of 8 IMPRESSION: 1. Single living fetus in vertex presentation. 2. Biophysical profile 8 out of 8. Reviewed, dictated and finalized at location A. HER TENDER HELPER
--- NOTE | 2021-04-04 07:42 | P.PNOB_ITS ---
OB - Triage/Final Diagnosis Visit Information Date of evaluation: 03/30/21 Reason for evaluation: threatened labor Comments/Additional reasons for admission: I have assessed the risk for this patient, Henrietta Han, and determined that she would benefit from o bservation care.
== END 2021-03-30 13:35 | disposition home or self-care (01) ==
PROVIDERS: Admitting Provider Obstetrics & Gynecology; Visit Provider Obstetrics & Gynecology
DX: O47.9 False labor, unspecified (principal); Z3A.00 Weeks of gestation of pregnancy not specified
CPT/HCPCS: 76819; G0378; G0379

== ENCOUNTER 2021-04-17 10:41 | Observation (INO) | payer OTHER, SELFPAY ==
[2021-04-17 11:21] VITALS: BMI 44.5
--- NOTE | 2021-04-17 11:22 | OBADM ---
This patient, Henrietta Han, admitted to the OB room OB Post 116 for observation. Patient/family oriented to hospital policies and general routines including ID bracelet, bed and alarms, visiting hours, pain management, procedures, bathroom and other care routines, personal items, smoking policy, room service/diet, and visiting hours. Patient/Family are encouraged to report perceived risks to care and to ask questions if they do not understand what they are told or what they should do.
[2021-04-17 11:31] VITALS: BP 125/81; PULSE 75
[2021-04-17 12:01] VITALS: BP 124/65; PULSE 78
[2021-04-17 12:31] VITALS: BP 122/73; PULSE 83
[2021-04-17 13:01] VITALS: BP 128/85; PULSE 73
[2021-04-17 13:31] VITALS: BP 130/83; PULSE 80
--- NOTE | 2021-04-17 14:14 | PC.NURSE ---
1245- Dr. Yuan on unit, monitor for 1 more hour, patient may be discharged if no decels noted 1410- Dr. Yuan on unit, EFM reviewed, orders to discharge to home
[2021-04-17 18:57] LABS: Glucose Point of Care 76 mg/dl (65-105)
--- NOTE | 2021-04-20 09:21 | PM.OBTRLD ---
OB - Triage/Final Diagnosis Visit Information Comments/Additional reasons for admission: I have assessed the risk for this patient, Henrietta Han, and determined that she would benefit from observation care. Evaluation Laboratory results: Laboratory Tests 04/17/21 11:17 POC Capillary Glucose 76 Final Diagnosis (1) At risk for alteration in status: Code(s): Z91.89 - Other specified personal risk factors, not elsewhere classified Status: Acute
== END 2021-04-17 14:15 | disposition home or self-care (01) ==
PROVIDERS: Admitting Provider Obstetrics & Gynecology; Visit Provider Obstetrics & Gynecology
DX: O35.8XX0 Maternal care for other (suspected) fetal abnormality and damage, not applicable or unspecified (principal); Z3A.00 Weeks of gestation of pregnancy not specified
CPT/HCPCS: 82948; G0378; G0379

== ENCOUNTER 2021-04-20 11:29 | Outpatient (RCR) | payer OTHER, SELFPAY ==
[2021-03-16 11:32] VITALS: BP 126/72; PULSE 85
[2021-04-13 10:30] VITALS: BP 121/68; PULSE 81
[2021-04-20 13:03] VITALS: BP 117/68; PULSE 78
== END 2021-05-25 20:50 | disposition home or self-care (01) ==
LOC: ANHOBOP 11:29
PROVIDERS: Visit Provider Obstetrics & Gynecology
DX: O24.419 Gestational diabetes mellitus in pregnancy, unspecified control (principal); Z3A.33 33 weeks gestation of pregnancy; Z3A.37 37 weeks gestation of pregnancy; Z3A.38 38 weeks gestation of pregnancy
CPT/HCPCS: 59025

== ENCOUNTER 2021-04-23 05:30 | Inpatient (IN) | payer OTHER, SELFPAY ==
[2021-04-23] VITALS (67 sets, daily range): BP systolic 97–131; BP diastolic 50–84; PULSE 67–97; RESP 14–36; TEMP 36.2–37.1; O2SAT 89–97; BMI 44.3
--- OUTSIDE RECORDS SUMMARY | 2021-04-23 05:34 | XMS_ITS ---
:1990 Author Care Team Providers Name Role Phone Bear Masters Primary Care Provider Unavailable Allergies Code Code System Name Reaction Severity Status Onset NKDA ? Medications Name Status Start Date Stop Date ? ? Accu-Chek Softclix Lancets Active ? Not a vailable fluconazole 150 mg tablet Active 06/02/2019 Not av ailable take 1 tablet by oral route every other days Durlaza 162.5 mg Active ? Not available capsule,extended release FreeStyle Lancets 28 gauge Active ? Not a vailable Humulin N NPH U-100 Insulin Active ? Not available (isophane susp) 100 unit/mL subcutaneous Humulin R Regular U-100 Insulin Active ? Not available 100 unit/mL injection solution hydrocodone 5 mg-acetaminophen Active ? N ot available 325 mg tablet insulin syringe U-100 with Active ? Not a vailable needle 0.3 mL 29 gauge insulin syringe U-100 with needle 0.3 mL 30 Active ? Not available USE EVERY DAY WITH INSULIN iron Active ? Not available labetalol 200 mg tablet Active ? Not avai lable Macrobid 100 mg capsule Active ? Not avai lable nystatin 100,000 unit/gram Active ? Not a vailable topical cream nystatin-triamcinolone 100,000 Active ? N ot available unit/g-0.1 % topical cream OneTouch Delica Plus Lancet 33 Active ? N ot available gauge
--- OUTSIDE RECORDS SUMMARY | 2021-04-23 05:35 | XMS_ITS | Encounter Summary ---
:1990 Author Reason for Visit None recorded. Assessment and Plan 1. condition affecting obs tetrical care of mother ? US, obstetric, biophysical profile + non-stress test Discussion Note: None recorded.Patient educational handouts: No information available. Plan of Care Reminders Provider Appointments Surg Post Op 04/30/2021 Am y Colette 10:00AM MD Lissy ? 3Hr Glucose on or around Prasanth annika Lindsey 06/19/2021 MD Son[facility] Lab None ? ? recorded. Referral None ? ? recorded. Procedures None ? ? recorded. Surgeries None ? ? recorded. Imaging US, 03/27/2021 [place] [facility], Biophysical Profile + Non-stress Test Medications Name Start Date ? ? Accu-Chek Softclix Lancets ? Durlaza 162.5 mg capsule,extended release ? FreeStyle Lancets 28 gauge ? Humulin N NPH U-100 Insulin (isophane susp) 100 unit/m L subcutaneous ? Humulin R Regular U-100 Insulin 100 unit/mL injection solution ? hydrocodone 5 mg-acetaminophen 325 mg tablet ? insulin syringe U-100 with needle 0.3 mL 29 gauge ? insulin syringe U-100 with needle 0.3 mL 30 ? USE EVERY DAY WITH INSULIN iron ? labetalol 200 mg tablet ? Macr
--- OUTSIDE RECORDS SUMMARY | 2021-04-23 05:35 | XMS_ITS | Encounter Summary ---
:1990 Author Reason for Visit None recorded. Assessment and Plan 1. Gestational diabetes mellitus , class A>2< ? non-stress test Discussion Note: None recorded.Patient educational handouts: No information available. Plan of Care Reminders Provider Appointments Surg Post 04/30/2021 Lynn T herese Op 10:00AM MD Lissy ? 3Hr on or around Bear Khan cott Glucose 06/19/2021 MD Son[facility] Lab None ? ? recorded. Referral None ? ? recorded. Procedures None ? ? recorded. Surgeries None ? ? recorded. Imaging Non-stress 04/17/2021 Lennie marc Test Medications Name Start Date ? ? [...] iron ? labetalol 200 mg tablet ? Macrobid 100 mg capsule ? nystatin 100,000 unit/gram topical cream ? nystatin-triamcinolone 100,000 unit/g-0.1 % topical cr eam ?
--- OUTSIDE RECORDS SUMMARY | 2021-04-23 05:35 | XMS_ITS | Encounter Summary ---
[...] Surgeries None ? ? recorded. Imaging US, 04/10/2021 [place] [facility], Biophysical Profile + Non-stress Test Medications [...]
--- OUTSIDE RECORDS SUMMARY | 2021-04-23 05:35 | XMS_ITS | Encounter Summary ---
:1990 Author Reason for Visit None recorded. Assessment and Plan 1. AND/OR placental disord er affecting management of mother ? US, obstetric, follow-up Discussion Note: None recorded.Patient educational handouts: No information available. Plan of Care Reminders Provider Appointments Surg Post 04/30/2021 Lynn Tim herese Op 10:00AM MD Lissy ? 3Hr on or around Bear victor Glucose 06/19/2021 MD Son[facility] Lab None ? ? recorded. Referral None ? ? recorded. Procedures None ? ? recorded. Surgeries None ? ? recorded. Imaging US, 04/06/2021 [place] [facility], Follow-up Medications Name Start Date ? ? Accu-Chek [...]
--- OUTSIDE RECORDS SUMMARY | 2021-04-23 05:35 | XMS_ITS | Encounter Summary ---
[...] Surgeries None ? ? recorded. Imaging Non-stress 04/06/2021 Lennie marc Test Medications Name Start Date [...]
--- OUTSIDE RECORDS SUMMARY | 2021-04-23 05:35 | XMS_ITS | Encounter Summary ---
[...] Surgeries None ? ? recorded. Imaging Non-stress 04/10/2021 Lennie marc Test Medications Name Start Date [...]
--- OUTSIDE RECORDS SUMMARY | 2021-04-23 05:35 | XMS_ITS | Encounter Summary ---
:1990 Author Reason for Visit OB visit Assessment and Plan 1. Deliveries by 2. Gestational diabetes mellitus 3. Obesity Discussion Note: None recorded.Patient educational handouts: No information available. Plan of Care Reminders Provider Appointments Surg Post 04/30/2021 Lynn T herese Op 10:00AM MD Lissy ? 3Hr on or around Bear victor Glucose 06/19/2021 MD Son[facility] Lab None ? ? recorded. Referral None ? ? recorded. Procedures None ? ? recorded. Surgeries None ? ? recorded. Imaging None ? ? recorded. Medications Name Start Date ? ? Accu-Chek [...]
--- OUTSIDE RECORDS SUMMARY | 2021-04-23 05:35 | XMS_ITS | Encounter Summary ---
:1990 Author Reason for Visit None recorded. Assessment and Plan 1. Gestational diabetes mellitus , class A>2< ? US, obstetric, biophysical profile + non-stress [...] Surgeries None ? ? recorded. Imaging US, 04/17/2021 [place] [facility], Biophysical Profile + Non-stress Test Medications [...]
--- OUTSIDE RECORDS SUMMARY | 2021-04-23 05:35 | XMS_ITS | Encounter Summary ---
:1990 Author Reason for Visit OB visit Assessment and Plan 1. Deliveries by 2. Gestational diabetes mellitus Discussion Note: None recorded.Patient educational handouts: No [...] 100,000 unit/g-0.1 % topical cr eam ? Dago Mcknight
--- OUTSIDE RECORDS SUMMARY | 2021-04-23 05:35 | XMS_ITS | Encounter Summary ---
[...] Surgeries None ? ? recorded. Imaging Non-stress 04/03/2021 Lennie marc Test Medications Name Start Date [...]
--- OUTSIDE RECORDS SUMMARY | 2021-04-23 05:35 | XMS_ITS | Encounter Summary ---
:1990 Author Reason for Visit OB visit OB [id number] EDC 05/03/2021 LMP 07/21/2020 Assessment and Plan Assessment Note Patient is ___weeks . Discu ssed plan. Discussion Note: None recorded.Patient educational handouts: No [...] ? nystatin 100,000 unit/gram topical cream ? nystatin-triamcinolo
--- OUTSIDE RECORDS SUMMARY | 2021-04-23 05:35 | XMS_ITS | Encounter Summary ---
[...] Surgeries None ? ? recorded. Imaging Non-stress 03/30/2021 Lennie marc Test Medications Name Start Date [...]
--- OUTSIDE RECORDS SUMMARY | 2021-04-23 05:35 | XMS_ITS | Encounter Summary ---
:1990 Author Reason for Visit OB visit 36w5d / GBS TODAY Assessment and Plan 1. Routine care Discussion Note: None recorded.Patient educational handouts: No [...] 100,000 unit/g-0.1 % topical cr eam ? OneTouch Delica Plus Lancet 33 gau
--- OUTSIDE RECORDS SUMMARY | 2021-04-23 05:36 | XMS_ITS | Encounter Summary ---
:1990 Author Reason for Visit None recorded. Assessment and Plan 1. Marginal insertion of umbilic al cord ? US, obstetric, follow-up Discussion Note: None recorded.Patient educational handouts: No information available. Plan of Care Reminders Provider Appointments Surg Post 04/30/2021 Lynn T herese Op 10:00AM MD Lissy ? 3Hr on or around Bear victor Glucose 06/19/2021 MD Son[facility] Lab None ? ? recorded. Referral None ? ? recorded. Procedures None ? ? recorded. Surgeries None ? ? recorded. Imaging US, 02/05/2021 [place] [facility], Follow-up Medications Name Start Date ? [...] ? nystatin 100,000 unit/gram topical cream ? n
--- OUTSIDE RECORDS SUMMARY | 2021-04-23 05:36 | XMS_ITS ---
:1990 Author Care Team Providers Name Role Phone Unassigned Primary Care Provider Unavailable Allergies Code Code System Name Reaction Severity Status Onset NKDA ? Medications Name Status Start Date Stop Date ? ? Aspirin Low Dose 81 mg tablet,delayed release Active ? Not available Take 1 tablet every day by oral route. folic acid 1 mg tablet Active ? Not avail able Take 4 tablets every day by oral route as directed. Vitamin tablet Active ? Not avai lable Take 1 tablet every day by oral route as directed for 90 days. progesterone micronized 200 mg capsule Active ? Not available Take 1 capsule twice a day by oral route. Problems Name Status Onset Date Source ? Active 04/19/2019 ? Abnormal Progesterone Active 04/28/2019 ? 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 Requires Varicella Vaccination Active 04/28/2019 ? Procedures Date Name Performed by ? 04/19/2019 US, Obstetric, 1St Trimester [facility] ([facility] Call Scheduling) [address], [place] [address] (Work [address]) 04/19/2019 US[facility]st[facility] [address], [place] [address]
--- OUTSIDE RECORDS SUMMARY | 2021-04-23 05:36 | XMS_ITS | Encounter Summary ---
[...] Surgeries None ? ? recorded. Imaging Non-stress 03/23/2021 Lennie marc Test Medications Name Start Date [...]
--- OUTSIDE RECORDS SUMMARY | 2021-04-23 05:36 | XMS_ITS | Encounter Summary ---
:1990 Author Reason for Visit None recorded. Assessment and Plan 1. AND/OR placental disord er affecting management of mother ? US, obstetric, follow-up ? US, obstetric, biophysical profile + non-stress test Discussion Note: None recorded.Patient educational handouts: No information available. Plan of Care Reminders Provider Appointments Surg Post Op 04/30/2021 Am y Colette 10:00AM MD Lissy ? 3Hr Glucose on or around Prasanth Lindsey 06/19/2021 MD Son[facility] Lab None ? ? recorded. Referral None ? ? recorded. Procedures None ? ? recorded. Surgeries None ? ? recorded. Imaging US, 03/08/2021 [place] [facility], Follow-up ? US, 03/08/2021 [place] [facility], Biophysical Profile + Non-stress Test Medications Name Start Date ? ? Accu-Chek Softclix Lancets ? Durlaza 162.5 mg capsule,extended release ? FreeStyle Lancets 28 gauge ? Humulin N NPH U-100 Insulin (isophane susp) 100 unit/m L subcutaneous ? Humulin R Regular U-100 Insulin 100 unit/mL injection solution ? hydrocodone 5 mg-acetaminophen 325 mg tablet ? insulin syringe U-100 w
--- OUTSIDE RECORDS SUMMARY | 2021-04-23 05:36 | XMS_ITS | Encounter Summary ---
:1990 Author Reason for Visit OB visit Assessment and Plan Assessment Note Patient is ___weeks . Discu ssed plan. 1. Routine care Discussion Note: None recorded.Patient educational handouts: No information available. Plan of Care Reminders Provider Appointments Surg Post 04/30/2021 Lynn Dumont herese Op 10:00AM MD Lissy ? 3Hr [...] ? nystatin 100,000 unit/gram topical cream ? nystatin-tria
--- OUTSIDE RECORDS SUMMARY | 2021-04-23 05:36 | XMS_ITS | Encounter Summary ---
:1990 Author Reason for Visit 3 HOUR GLUCOSE Assessment and Plan None recorded.Discussion Note: None recorded.Patient educational handouts: No information [...] eam ? OneTouch Delica Plus Lancet 33 gauge ? OneTouch Ultra Test strips ? OneTouch Ultra2 Meter ?
--- OUTSIDE RECORDS SUMMARY | 2021-04-23 05:36 | XMS_ITS | Encounter Summary ---
:1990 Author Reason for Visit OB visit 29w5d Assessment and Plan 1. Routine care 2. section following pr evious section ? section (SURG) Discussion Note: None recorded.Patient educational handouts: No information available. Plan of Care Reminders Provider Appointments Surg Post 04/30/2021 Lynn Tim herese Op 10:00AM MD Lissy ? 3Hr Glucose on or around Prasanth annika Lindsey 06/19/2021 MD Son[facility] Lab None ? ? recorded. Referral None ? ? recorded. Procedures None ? ? recorded. Surgeries 04/23/2021 [place] Section (SURG) [facility] None ? ? recorded. Medications Name [...]
--- OUTSIDE RECORDS SUMMARY | 2021-04-23 05:36 | XMS_ITS | Encounter Summary ---
[...] Surgeries None ? ? recorded. Imaging Non-stress 03/20/2021 Lennie marc Test Medications Name Start Date [...]
--- OUTSIDE RECORDS SUMMARY | 2021-04-23 05:36 | XMS_ITS | Encounter Summary ---
[...] Surgeries None ? ? recorded. Imaging Non-stress 03/13/2021 Lennie marc Test Medications Name Start Date [...]
--- OUTSIDE RECORDS SUMMARY | 2021-04-23 05:36 | XMS_ITS | Encounter Summary ---
:1990 Author Reason for Visit OB visit Assessment and Plan Assessment Note Patient is ___weeks . Discu ssed plan. 1. Gestational diabetes mellitus , class A>2< Discussion Note: None recorded.Patient educational handouts: No [...]
--- OUTSIDE RECORDS SUMMARY | 2021-04-23 05:36 | XMS_ITS | Encounter Summary ---
[...] Surgeries None ? ? recorded. Imaging US, 03/13/2021 [place] [facility], Biophysical Profile + Non-stress Test Medications [...]
--- OUTSIDE RECORDS SUMMARY | 2021-04-23 05:36 | XMS_ITS | Encounter Summary ---
[...] Surgeries None ? ? recorded. Imaging Non-stress 03/08/2021 Lennie marc Test Medications Name Start Date [...]
--- OUTSIDE RECORDS SUMMARY | 2021-04-23 05:36 | XMS_ITS | Encounter Summary ---
:1990 Author Reason for Visit OB visit 29w5d Assessment and Plan 1. Routine care Discussion [...]
--- OUTSIDE RECORDS SUMMARY | 2021-04-23 05:36 | XMS_ITS | Encounter Summary ---
:1990 Author Reason for Visit OB visit Assessment and Plan 1. Deliveries by 2. Gestational diabetes mellitus 3. Marginal insertion of umbilic al cord 4. Obesity Discussion Note: None recorded.Patient educational handouts: [...] Macrobid 100 mg capsule ? nystatin 100,000 u
--- OUTSIDE RECORDS SUMMARY | 2021-04-23 05:36 | XMS_ITS | Encounter Summary ---
[...] Surgeries None ? ? recorded. Imaging Non-stress 03/27/2021 Lennie marc Test Medications Name Start Date [...]
[2021-04-23 06:03] LABS: Basophils Absolute Auto 0.1 K/mm3 (0.0-0.1); Basophils Percent Auto 0.5 % (0.2-1.2); Eosinophils Absolute Auto 0.2 K/mm3 (0-0.3); Hematocrit 39.6 % (37.0-47.0); Hemoglobin 13.4 g/dL (12.0-15.0); Immature Granulocyte Absolute 0.06 K/mm3 (0.00-0.031); Immature Granulocyte Percent A 0.4 % (0-0.5); Lymphocytes Absolute Auto 2.85 K/mm3 (0.9-3.2); Mean Corpuscular HGB Conc 33.8 g/dl (32-36); Mean Corpuscular Hemoglobin 29.7 pg (26-34); Mean Corpuscular Volume 87.8 fl (80-100); Mean Platelet Volume 10.8 fl (7.4-10.4); Monocytes Percent Auto 6.6 % (2.6-8.5); Neutrophils Absolute Auto 10.9 K/mm3 (1.3-6.7); Neutrophils Percent Auto 72.5 % (45.5-73.1); Platelet Count Result 300 k/mm3 (150-375); Red Blood Count 4.51 M/mm3 (4.2-5.4); Red Cell Distribution Width 14.4 % (11.5-14.5)
[2021-04-23] MEDS: ceFAZolin 2 GM/D5W 50 ML 2 GM/50 ML BAG IVPB (06:41)
--- NOTE | 2021-04-23 06:43 | LDADM ---
This patient, Henrietta Han, was admitted to Labor/Delivery/Recovery 120 on 04/23/21 at 05:30. Plans for labor, pain management and were discussed with patient. Patient/family oriented to hospital policies and general routines including ID bracelet, bed and alarms, visiting hours, pain management, procedures, bathroom and other care routines, personal items, smoking policy, room service/diet and guest tray routines, infant security routines, and visiting hours. Patient/Family are encouraged to report perceived risks to care and to ask questions if they do not understand what they are told or what they should do. See OBIX for further documentation.
--- NOTE | 2021-04-23 06:44 | WPDANESEPP ---
Anes - Eval Pre Procedure Procedure: Operation Date: 04/23/21 07:30 Proposed Procedures p Repeat Section - Lynn Yuan MD Date/Time: 04/23/21 06:44 Preop Diagnosis: Previous c section Pre Op Diagnosis: c/s Patient Data Age: 30 Gender: F Height: Weight: Last Vital Signs Pulse 93 04/23/21 06:31 BP 97/58 L 04/23/21 06:31 Allergies Allergy/AdvReac Type Severity Reaction Status Date / Time No Known Allergies Allergy Verified 11/21/20 13:12 Home Medications Medication Instructions Recorded Confirmed Type PNV cmb#95-ferrous fumarate-FA 1 tablet PO DAILY 11/04/19 04/17/21 History [] Novolin N NPH U-100 Insulin 20 unit SUBCUT HS 03/16/21 04/17/21 History Novolin N NPH U-100 Insulin 10 unit SUBCUT QACBREAK 04/13/21 04/17/21 History Novolin R Regular U-100 Insuln 4 unit SUBCUT QACDINNER 04/13/21 04/17/21 History Laboratory Tests 04/23/21 04/23/21 04/23/21 05:55 05:55 05:55 WBC 15.0 K/mm3 H K/mm3 (4.5-10.0) RBC 4.51 M/mm3 M/mm3 (4.2-5.4) Hgb 13.4 g/dL g/dL (12.0-15.0) Hct 39.6 % % (37.0-47.0) MCV 87.8 fl fl (80-100) MCH 29.7 pg pg (26-34) MCHC 33.8 g/dl g/dl (32-36) RDW 14.4 % % (11.5-14.5) Plt Count 300 k/mm3 k/mm3 (150-375) MPV 10.8 fl H fl (7.4-10.4) Immature Gran % (Auto) 0.4 % % (0-0.5) Neut % (Auto) 72.5 % % (45.5-73.1) Lymph % (Auto) 19.0 % % (18.3-44.2) [place] % (Auto) 6.6 % % (2.6-8.5) Eos % (Auto) 1.0 % % (0-4.4) Baso % (Auto) 0.5 % % (0.2-1.2) Lymph # (Auto) 2.85 K/mm3 K/mm3 (0.9-3.2) [place] # (Auto) 1.0 K/mm3 H K/mm3 (0.1-0.6) Eos # (Auto) 0.2 K/mm3 K/mm3 (0-0.3) Baso # (Auto) 0.1 K/mm3 K/mm3 (0.0-0.1) Abs Immat Gran (auto) 0.06 K/mm3 H K/mm3 (0.00-0.031) Absolute Neuts (auto) 10.9 K/mm3 H K/mm3 (1.3-6.7) Absolute Nucleated RBC 0.0 K/mm3 K/mm3 (0.0-0.012) Nucleated RBC % 0.0 % % (0.0-0.2) RPR Pending Blood Type Pending Antibody Screen Pending Patient hx anesthesia problems: none Family hx anesthesia problems: none Results Review: All pre-operative results and documents have been reviewed as part of the pre-operative evaluation. [facility] Past Medical History Medical History delivery delivered Gestational diabetes 1 Healthy female adult IUP (intrauterine ), incidental Morbid obesity with BMI of 50.0-59.9, adult Surgical History Surgical History No history of previous surgery Family History Family History Mother Chronic obstructive pulmonary disease Social History Social History Smoking status: Never smoker Substance use: current Gender identity (if verbalized by the patient): Female Sexual Orientation (if Verbalized by the Patient): Straight or Heterosexual Spiritual care concerns: No Exam Day of Procedure 04/23/21 06:44 Patient weight: morbidly obese Heart: regular rate and rhythm Lungs: clear to auscultation Airway: Mallampati scale class II Neurological: alert and oriented
--- NOTE | 2021-04-23 06:50 | WPDANESEPPF ---
Anes - Initial Pre Proc Eval Procedure: Operation Date: 04/23/21 07:30 Proposed Procedures p Repeat Section - Lynn Yuan MD Date/Time: 04/23/21 06:50 Surgeon: Maria Elena Masters MD Pre Op Diagnosis: c/s Patient Data Age: 30 Gender: F Height: Weight: Last Vital Signs Pulse 93 04/23/21 06:31 BP 97/58 L 04/23/21 06:31 Allergies Allergy/AdvReac Type Severity Reaction Status Date / Time No Known Allergies Allergy Verified 11/21/20 13:12 Home Medications Medication Instructions Recorded Confirmed Type PNV cmb#95-ferrous fumarate-FA 1 tablet PO DAILY 11/04/19 04/17/21 History [] Novolin N NPH U-100 Insulin 20 unit SUBCUT HS 03/16/21 04/17/21 History Novolin N NPH U-100 Insulin 10 unit SUBCUT QACBREAK 04/13/21 04/17/21 History Novolin R Regular U-100 Insuln 4 unit SUBCUT QACDINNER 04/13/21 04/17/21 History Laboratory Tests 04/23/21 04/23/21 04/23/21 05:55 05:55 05:55 WBC 15.0 K/mm3 H K/mm3 (4.5-10.0) RBC 4.51 M/mm3 M/mm3 (4.2-5.4) Hgb 13.4 g/dL g/dL (12.0-15.0) Hct 39.6 % % (37.0-47.0) MCV 87.8 fl fl (80-100) MCH 29.7 pg pg (26-34) MCHC 33.8 g/dl g/dl (32-36) RDW 14.4 % % (11.5-14.5) Plt Count 300 k/mm3 k/mm3 (150-375) MPV 10.8 fl H fl (7.4-10.4) Immature Gran % (Auto) 0.4 % % (0-0.5) Neut % (Auto) 72.5 % % (45.5-73.1) Lymph % (Auto) 19.0 % % (18.3-44.2) [place] % (Auto) 6.6 % % (2.6-8.5) Eos % (Auto) 1.0 % % (0-4.4) Baso % (Auto) 0.5 % % (0.2-1.2) Lymph # (Auto) 2.85 K/mm3 K/mm3 (0.9-3.2) [place] # (Auto) 1.0 K/mm3 H K/mm3 (0.1-0.6) Eos # (Auto) 0.2 K/mm3 K/mm3 (0-0.3) Baso # (Auto) 0.1 K/mm3 K/mm3 (0.0-0.1) Abs Immat Gran (auto) 0.06 K/mm3 H K/mm3 (0.00-0.031) Absolute Neuts (auto) 10.9 K/mm3 H K/mm3 (1.3-6.7) Absolute Nucleated RBC 0.0 K/mm3 K/mm3 (0.0-0.012) Nucleated RBC % 0.0 % % (0.0-0.2) RPR Pending Blood Type Pending Antibody Screen Pending Patient hx anesthesia problems: none Family hx anesthesia problems: none Results Review: All pre-operative results and documents have been reviewed as part of the pre-operative evaluation. [facility] Past Medical History Medical History delivery delivered Gestational diabetes 1 Healthy female adult IUP (intrauterine ), incidental Morbid obesity with BMI of 50.0-59.9, adult Surgical History Surgical History No history of previous surgery Family History Family History Mother Chronic obstructive pulmonary disease Social History Social History Smoking status: Never smoker Substance use: current Gender identity (if verbalized by the patient): Female Sexual Orientation (if Verbalized by the Patient): Straight or Heterosexual Spiritual care concerns: No Anes - Eval Final PreProcedure Day of Procedure 04/23/21 06:50 Patient weight: morbidly obese Heart: regular rate and rhythm Lungs: clear to auscultation Airway: Mallampati scale class II Neurological: alert and oriented Last oral intake: >/= 8 hours ASA classification: III Emergent: no Anesthetic plan: proceed Anesthesia type and monitoring: regional spinal and standard monitoring Results Review: All pre-operative results and documents have been reviewed as part of the pre-operative evaluation. Informed Consent: The patient's anesthetic plan and its attendant risks and benefits were discussed with the patient/family/POA. Questions were solicited and answers provided to the satisfaction
[2021-04-23] MEDS: LACTATED RINGERS 1,000 ML 125 ML IV CONT (06:51)
[2021-04-23 07:00] LABS: Glucose Point of Care 86 mg/dl (65-105)
--- NOTE | 2021-04-23 07:13 | PM.IMHP ---
H&P: HPI History of Present Illness Date/Time: 04/23/21 07:13 Chief Complaint: repeat CS Narrative: Brigida maya a at 38+ weeks for repeat CS for GDMA2 suboptimally controlled, history of PIH, and borderline PIH developing recently. Also BMI 44, marginal insertion of cord, and Rh neg. She has had trouble controlling her diabetes on insulin due to poor diet choices and limited money for healthy food. Review of Systems Review of Systems: All systems reviewed & are unremarkable except as noted in HPI and below PMFSH Past Medical History Medical History delivery delivered Gestational diabetes 1 Healthy female adult IUP (intrauterine ), incidental Morbid obesity with BMI of 50.0-59.9, adult Surgical History Surgical History No history of previous surgery Family History Family History Mother Chronic obstructive pulmonary disease Social History Social History Smoking status: Never smoker Substance use: current Gender identity (if verbalized by the patient): Female Sexual Orientation (if Verbalized by the Patient): Straight or Heterosexual Spiritual care concerns: No Meds Home Medications and Allergies Home Medications Medication Instructions Recorded Confirmed Type PNV cmb#95-ferrous fumarate-FA 1 tablet PO DAILY 11/04/19 04/17/21 History [] Novolin N NPH U-100 Insulin 20 unit SUBCUT HS 03/16/21 04/17/21 History Novolin N NPH U-100 Insulin 10 unit SUBCUT QACBREAK 04/13/21 04/17/21 History Novolin R Regular U-100 Insuln 4 unit SUBCUT QACDINNER 04/13/21 04/17/21 History Allergies Allergy/AdvReac Type Severity Reaction Status Date / Time No Known Allergies Allergy Verified 11/21/20 13:12 Vital Signs Vital Signs - 24 hr 04/23/21 06:25 04/23/21 06:31 Pulse Rate 97 93 Blood Pressure 109/81 97/58 L Exam Const: General: no acute distress Resp: Effort & Inspection: normal respiratory effort Auscultation: clear to auscultation bilaterally Cardio: Rate: regular rate Rhythm: regular rhythm GI: GI Palp: Yes Soft to palpation Extrem: General: normal to inspection H&P: Results Labs Labs: Short CBC 04/23/21 Range/Units 05:55 WBC 15.0 H (4.5-10.0) K/mm3 Hgb 13.4 (12.0-15.0) g/dL Hct 39.6 (37.0-47.0) % Plt Count 300 (150-375) k/mm3 Assessment and Plan Additional Plan Plan Repeat CS Discussed RBA, pt consented, all questions answered. FHT category 1 will proceed.
--- NOTE | 2021-04-23 07:16 | WPDHPUPDATE1 ---
History and Physical Update Update Date/Time: 04/23/21 07:16 History and Physical has been reviewed, including an updated exam of the patient. There are NO changes in the patient's condition. Risks, benefits, and alternatives have been discussed and questions answered. Patient agrees to proceed with procedure.
[2021-04-23] MEDS: KETOROLAC 30 MG/ML VIAL (*BKC) IV PUSH ×2 (07:57→15:44)
--- NOTE | 2021-04-23 08:19 | PM.OBPRVD ---
OB - Delivery Note Procedure Delivery date: 04/23/21 Procedure: Procedures Operation Date: 04/23/21 07:30 Actual Procedure Side Surgeon p Section Bilateral Lynn Yuan MD repeat low transverse section events: Previous and Gestational Diabetes Route of delivery: Specimen: Yes (placenta) Quantitative Blood Loss (ml): 325 Anesthesia type: Spinal Disposition: floor Complications: none Narrative: The patient was taken to the OR and received spinal anesthesia. She was placed in dorsal supine position with left lateral tilt. SCDs and herr were placed. She was prepped and draped in the normal sterile fashion. A Pfannensteil skin incision was made and carried through to the underlying layer of fascia. The fascia was incised in the midline and then extended laterally using Carrington scissors. The muscles were in the midline and the peritoneum was entered bluntly. The peritoneal incision was extended inferiorly and superiorly with care to avoid the bladder. The bladder blade was then inserted, the vesicouterine peritoneum was grasped, incised with Metzenbaum scissors, and a bladder flap created. The bladder blade was reinserted. A low transverse uterine incision was made with a scalpel and extended bluntly. AROM was performed and fluid was noted to be clear. The head was delivered, followed by the remainder of the baby. The baby's oropharynx was suctioned. After 30 seconds, the cord was clamped and cut and the infant was handed off. Cord blood was obtained and the placenta was then removed manually. The uterus was exteriorized. A moist lap sponge was used to curette the endometrium. The uterine incision was then closed with one layer of 0-Vicryl in a running, locking fashion. Good hemostasis was noted. The posterior cul de sac was irrigated with normal saline and cleared of all clot and debris. The uterus was returned to the abdomen. Both lateral gutters were then irrigated. The rectus muscles were inspected and found to be hemostatic. The fascia was reapproximated using 0-Vicryl in running fashion. The subcutaneous tissue was irrigated with normal saline and made hemostatic with Bovie electrocautery. The subcutaneous tissue was reapproximated with a layer of running 2-0 plain gut. The skin was then closed with absorbable bhargavi. Steri strips and a bandage were applied. The uterus was evacuated. The patient tolerated the procedure very well. All counts were correct. She was taken to the recovery room in good condition. Baby Date of : 04/23/21 Time of : 07:41 Weeks of gestation at delivery: 38 gender: Female Weight (pounds): 6 Weight (ounces): 9 presentation: vertex Placenta delivery description: Manual Removal cord vessel description: 3 Vessels, Nuchal Cord and Delayed Cord Clamping score one minute: 8 score five minutes: 8
[2021-04-23 08:40] LABS: Amphetamine Screen Urine Negative (Negative); Barbiturate Screen Urine Negative (Negative); Benzodiazepines Screen Urine Negative (Negative); Cannabinoid Screen Urine Positive (Negative); Cocaine Screen Urine Negative (Negative); Methadone Screen Urine Negative (Negative); Opiate Screen Urine Negative (Negative); Phencyclidine Screen Urine Negative (Negative)
[2021-04-23 09:28] LABS: Rapid Plasma Reagin Non-Reactive (NonReactive)
--- NOTE | 2021-04-23 09:56 | SUR.PHASEI ---
abd bandage noted to saturated. Bandage removed and active bleeding was noted. Dr Yuan was notified to come and evaluate patient at 0953. Orders received for pressure dressing x20 minutes and CBC now. Abd dressing was applied with pressure and a sand bag at 0956.
--- NOTE | 2021-04-23 10:17 | SUR.PHASEI ---
Sand Bag removed. Dressing intact and no shadow drainage noted at this time. Pressure dressing remains in place with foam tape.
[2021-04-23 10:24] LABS: Basophils Percent Auto 0.3 % (0.2-1.2); Eosinophils Absolute Auto 0.1 K/mm3 (0-0.3); Eosinophils Percent Auto 0.3 % (0-4.4); Hematocrit 35.6 % (37.0-47.0); Hemoglobin 11.7 g/dL (12.0-15.0); Immature Granulocyte Absolute 0.07 K/mm3 (0.00-0.031); Immature Granulocyte Percent A 0.5 % (0-0.5); Lymphocytes Absolute Auto 1.29 K/mm3 (0.9-3.2); Lymphocytes Percent Auto 8.7 % (18.3-44.2); Mean Corpuscular HGB Conc 32.9 g/dl (32-36); Mean Corpuscular Hemoglobin 29.4 pg (26-34); Mean Corpuscular Volume 89.4 fl (80-100); Mean Platelet Volume 10.3 fl (7.4-10.4); Monocytes Absolute Auto 0.8 K/mm3 (0.1-0.6); Monocytes Percent Auto 5.2 % (2.6-8.5); Neutrophils Absolute Auto 12.6 K/mm3 (1.3-6.7); Platelet Count Result 212 k/mm3 (150-375); Red Blood Count 3.98 M/mm3 (4.2-5.4); Red Cell Distribution Width 14.3 % (11.5-14.5); White Blood Count 14.8 K/mm3 (4.5-10.0)
--- NOTE | 2021-04-23 10:28 | SUR.PHASEI ---
bandage noted to be saturate once again. called.
--- NOTE | 2021-04-23 10:38 | SUR.PHASEI ---
Dr Yuan here to see patient and evaluate incision.
--- NOTE | 2021-04-23 10:53 | SUR.PHASEI ---
No active bleeding noted at this time. New pressure dressing applied.
--- NOTE | 2021-04-23 10:54 | SUR.PHASEI ---
Sandbag applied to incision area for additional pressure.
--- NOTE | 2021-04-23 10:54 | PM.OBPNVD ---
OB - PN: Subj Subjective Date/time seen: 04/23/21 10:54 Narrative: CTSP re soaked bandage and 120cc out through incision. during case, most of hemostasis mgt needed in subcu. Skin examined. mod oozing from incision at 2 locations. skin edges unapproximated at this area. able to use silver nitrate to stop superficial bleeding. pressure held for 5 min and then no further bleeding was noted. pressure bandage applied. Repeat CBC pending. OB - PN: Obj Data Labs CBC & Chem 7: 04/23/21 10:02 Labs: Laboratory Results - last 24 hr 04/23/21 04/23/21 04/23/21 05:55 05:55 05:55 WBC 15.0 H RBC 4.51 Hgb 13.4 Hct 39.6 MCV 87.8 MCH 29.7 MCHC 33.8 RDW 14.4 Plt Count 300 MPV 10.8 H Immature Gran % (Auto) 0.4 Neut % (Auto) 72.5 Lymph % (Auto) 19.0 [place] % (Auto) 6.6 Eos % (Auto) 1.0 Baso % (Auto) 0.5 Lymph # (Auto) 2.85 [place] # (Auto) 1.0 H Eos # (Auto) 0.2 Baso # (Auto) 0.1 Abs Immat Gran (auto) 0.06 H Absolute Neuts (auto) 10.9 H Absolute Nucleated RBC 0.0 Nucleated RBC % 0.0 POC Capillary Glucose Urine Opiates Screen Urine Methadone Screen Ur Barbiturates Screen Ur Phencyclidine Scrn Ur Amphetamine Screen U Benzodiazepines Scrn Urine Cocaine Screen U Cannabinoids Screen RPR Non-reactive Blood Type O Negative Antibody Screen Negative 04/23/21 04/23/21 04/23/21 06:57 07:27 10:02 WBC 14.8 H RBC 3.98 L Hgb 11.7 L Hct 35.6 L MCV 89.4 MCH 29.4 MCHC 32.9 RDW 14.3 Plt Count 212 MPV 10.3 Immature Gran % (Auto) 0.5 Neut % (Auto) 85.0 H Lymph % (Auto) 8.7 L [place] % (Auto) 5.2 Eos % (Auto) 0.3 Baso % (Auto) 0.3 Lymph # (Auto) 1.29 [place] # (Auto) 0.8 H Eos # (Auto) 0.1 Baso # (Auto) 0.0 Abs Immat Gran (auto) 0.07 H Absolute Neuts (auto) 12.6 H Absolute Nucleated RBC 0.0 Nucleated RBC % 0.0 POC Capillary Glucose 86 Urine Opiates Screen Negative Urine Methadone Screen Negative Ur Barbiturates Screen Negative Ur Phencyclidine Scrn Negative Ur Amphetamine Screen Negative U Benzodiazepines Scrn Negative Urine Cocaine Screen Negative U Cannabinoids Screen Positive A RPR Blood Type Antibody Screen OB - PN A/P Time Spent With Patient Time: Total time spent is greater than 50% in coordination of care (as documented) at patient's floor/unit and/or counseling patient:
--- NOTE | 2021-04-23 11:18 | SUR.PHASEI ---
sandbag removed and no additional bleeding noted.
--- NOTE | 2021-04-23 11:30 | SUR.PHASEI ---
No further bleeding noted, dressing remains dry and intact. Report called to LUCRECIA BOCANEGRA.
[2021-04-23] MEDS: OXYTOCIN 30 UNITS/NS 500 ML 30 UNITS/500 ML BAG 125 UNITS IV CONT (11:38)
[2021-04-23] MEDS: guaiFENesin/DEXTROMETHORPHAN 10 ML UDC PO (19:31)
[2021-04-24] MEDS: IBUPROFEN 600 MG TABLET PO ×4 (00:41→22:07)
[2021-04-24] MEDS: HYDROcodone/acetaminophen (*CRX) 10-325 MG TABLET 1 TAB PO ×4 (00:42→22:07)
[2021-04-24 02:45] VITALS: PULSE 82
[2021-04-24] MEDS: ALBUTEROL SULFATE (*SP) AEROSOL 1 PUFF 2 PUFF INHALATION ×4 (02:45→19:50)
[2021-04-24 04:30] VITALS: BP 112/72; PULSE 78; RESP 18; TEMP 36.8; O2SAT 94
[2021-04-24 04:52] LABS: Glucose Point of Care 105 mg/dl (65-105)
[2021-04-24 05:21] LABS: Basophils Absolute Auto 0.1 K/mm3 (0.0-0.1); Basophils Percent Auto 0.4 % (0.2-1.2); Eosinophils Absolute Auto 0.1 K/mm3 (0-0.3); Eosinophils Percent Auto 1.2 % (0-4.4); Hematocrit 29.7 % (37.0-47.0); Hemoglobin 9.9 g/dL (12.0-15.0); Immature Granulocyte Absolute 0.06 K/mm3 (0.00-0.031); Immature Granulocyte Percent A 0.5 % (0-0.5); Lymphocytes Absolute Auto 1.43 K/mm3 (0.9-3.2); Lymphocytes Percent Auto 11.8 % (18.3-44.2); Mean Corpuscular HGB Conc 33.3 g/dl (32-36); Mean Corpuscular Hemoglobin 29.7 pg (26-34); Mean Corpuscular Volume 89.2 fl (80-100); Mean Platelet Volume 10.8 fl (7.4-10.4); Monocytes Percent Auto 7.9 % (2.6-8.5); Neutrophils Absolute Auto 9.5 K/mm3 (1.3-6.7); Neutrophils Percent Auto 78.2 % (45.5-73.1); Platelet Count Result 215 k/mm3 (150-375); Red Blood Count 3.33 M/mm3 (4.2-5.4); Red Cell Distribution Width 14.5 % (11.5-14.5); White Blood Count 12.1 K/mm3 (4.5-10.0)
[2021-04-24 08:00] VITALS: BP 120/84; PULSE 87; RESP 18; TEMP 37.4; O2SAT 96
[2021-04-24] MEDS: MULTIVIT/MIN/PREN/FOL AC/IRON TABLET 1 TAB PO ×2 (09:00→09:28)
[2021-04-24] MEDS: DOCUSATE SODIUM 100 MG CAPSULE PO ×3 (09:00→19:49)
[2021-04-24] MEDS: SIMETHICONE 80 MG TAB.CHEW PO ×2 (09:27→15:06)
[2021-04-24] MEDS: POLYSACCHARIDE IRON COMPLEX 150 MG CAPSULE PO ×2 (09:28→19:49)
--- NOTE | 2021-04-24 09:28 | WPDANLDPN2 ---
Anes-Prog Note L&D Date/Time: 04/24/21 09:28 Comfortable throughout: section Neuraxial method: spinal Epidural/Spinal procedure site: clean & non-tender Neuro status: Neuro function grossly intact. Cardiovascular status: normal Respiratory status: normal Airway patency: baseline Mental status: baseline Post-Op hydration status: normal Vital Signs: Last Vital Signs Temp 37.4 C 04/24/21 08:00 Pulse 87 04/24/21 08:00 Resp 18 04/24/21 08:00 BP 120/84 04/24/21 08:00 Pulse Ox 96 04/24/21 08:00 Pain score (VAS): 04/30 I/O: Intake & Output 04/23/21 04/24/21 04/24/21 23:59 07:59 15:59 Intake Total 1000 2000 800 Output Total 800 1100 1000 Balance 200 900 -200 Post-procedural complaints: none Patient feedback: Patient satisfied with anesthetic care.
--- NOTE | 2021-04-24 09:29 | WPDANLDNPN2 ---
Anes-Prog Note L&D-Neuraxial Date/Time: 04/24/21 09:29 Neuraxial medications: intrathecal PF morphine Opiod-related complaints: none Patient feedback: Patient satisfied with post-operative pain management.
[2021-04-24 09:30] VITALS: PULSE 87; RESP 18; O2SAT 96
[2021-04-24 10:21] LABS: Glucose Point of Care 82 mg/dl (65-105)
--- NOTE | 2021-04-24 10:28 | P.PNOB_ITS ---
OB - PN: Subj Subjective Date/time seen: 04/24/21 10:28 Patient comments: no complaints and pain well controlled baby status: bottle feeding well Narrative: POD 1 from primary CS. Doing well. Normal lochia. Eating, ambulating, herr out. OB - PN: Obj Data Labs CBC & Chem 7: 04/24/21 04:38 Labs: Laboratory Results - last 24 hr 04/24/21 04/24/21 04/24/21 04:38 04:38 04:47 WBC 12.1 H RBC 3.33 L Hgb 9.9 L Hct 29.7 L MCV 89.2 MCH 29.7 MCHC 33.3 RDW 14.5 Plt Count 215 MPV 10.8 H Immature Gran % (Auto) 0.5 Neut % (Auto) 78.2 H Lymph % (Auto) 11.8 L [place] % (Auto) 7.9 Eos % (Auto) 1.2 Baso % (Auto) 0.4 Lymph # (Auto) 1.43 [place] # (Auto) 1.0 H Eos # (Auto) 0.1 Baso # (Auto) 0.1 Abs Immat Gran (auto) 0.06 H Absolute Neuts (auto) 9.5 H Absolute Nucleated RBC 0.0 Nucleated RBC % 0.0 POC Capillary Glucose 105 Blood Type O Negative Antibody Screen TNP Screen Positive H Baby's Blood Type O pos Baby's MIGDALIA Negative 04/24/21 08:27 WBC RBC Hgb Hct MCV MCH MCHC RDW Plt Count MPV Immature Gran % (Auto) Neut % (Auto) Lymph % (Auto) [place] % (Auto) Eos % (Auto) Baso % (Auto) Lymph # (Auto) [place] # (Auto) Eos # (Auto) Baso # (Auto) Abs Immat Gran (auto) Absolute Neuts (auto) Absolute Nucleated RBC Nucleated RBC % POC Capillary Glucose 82 Blood Type Antibody Screen Screen Baby's Blood Type Baby's MIGDALIA OB - PN A/P Assessment and Plan (1) delivery delivered: Code(s): O82 - Encounter for delivery without indication Status: Acute Plan day: 1 Plan: routine care Time Spent With Patient Time: Total time spent is greater than 50% in coordination of care (as documented) at patient's floor/unit and/or counseling patient: Exam Narrative: NAD abdomen soft, appropriately tender, incision bandage partially removed with small old dark red/brown serosanguinous drainage still present Extremities nontender with 1+ edema
[2021-04-24] MEDS: RHO(D) IMMUNE GLOBULIN 300 MCG/2 ML SYRINGE IM (14:45)
[2021-04-24] MEDS: guaiFENesin/DEXTROMETHORPHAN 10 ML UDC PO (19:53)
[2021-04-24 20:30] VITALS: BP 124/82; PULSE 96; RESP 16; TEMP 36.4; O2SAT 92
[2021-04-25] MEDS: guaiFENesin/DEXTROMETHORPHAN 10 ML UDC PO (02:32)
[2021-04-25] MEDS: ALBUTEROL SULFATE (*SP) AEROSOL 1 PUFF 2 PUFF INHALATION ×2 (02:33→09:02)
[2021-04-25] MEDS: HYDROcodone/acetaminophen (*CRX) 10-325 MG TABLET 1 TAB PO ×2 (05:46→09:05)
[2021-04-25] MEDS: IBUPROFEN 600 MG TABLET PO ×2 (05:47→12:27)
--- NOTE | 2021-04-25 07:16 | PM.OBPNVD ---
OB - PN: Subj Subjective Date/time seen: 04/25/21 07:16 Patient comments: no complaints and pain well controlled baby status: doing well and bottle feeding well [place] feeding status: exclusively bottle feeding Narrative: would like DC home OB - PN: Obj Data Labs CBC & Chem 7: 04/24/21 04:38 Labs: Laboratory Results - last 24 hr 04/24/21 04/24/21 04:38 08:27 POC Capillary Glucose 82 Blood Type O Negative Antibody Screen TNP Screen Positive H Baby's Blood Type O pos Baby's MIGDALIA Negative KB Hemoglobin Negative Doses of RhIg Required 1 OB - PN A/P Assessment and Plan (1) delivery delivered: Code(s): O82 - Encounter for delivery without indication Status: Acute Plan day: 2 Plan: routine care and discharge home Comments: DC home, FU 1 week. DC instructions given Time Spent With Patient Time: Total time spent is greater than 50% in coordination of care (as documented) at patient's floor/unit and/or counseling patient: Exam Narrative: NAD abdomen soft, appropriately tender, incision CDI Extremities nontender with 1+ edema
--- NOTE | 2021-04-25 07:22 | PM.DS ---
DS: Admitting Diagnosis Discharge Date 03/25/22 Admitting Diagnosis prior CS, term IUP DS: Discharge Diagnosis Discharge Diagnosis (1) delivery delivered: Code(s): O82 - Encounter for delivery without indication Status: Acute (2) Morbid obesity with BMI of 50.0-59.9, adult: Code(s): E66.01 - Morbid (severe) obesity due to excess calories; Z68.43 - Body mass index [BMI] 50.0-59.9, adult Status: Acute (3) Gestational diabetes: Code(s): O24.419 - Gestational diabetes mellitus in , unspecified control Status: Acute DS: Summary Hospital Course Hospital Course: Henrietta had an uncomplicated repeat delivery and course. Time Spent with Patient Time attestation: Total time spent providing and/or coordinating discharge services: Exam Narrative: NAD abdomen soft, appropriately tender, incision CDI DS: Data Data Completed and Pending Labs on day of discharge: Labs from last 24 hours 04/24/21 04/24/21 08:27 04:38 POC Capillary Glucose 82 Blood Type O Negative Antibody Screen TNP Screen Positive H Baby's Blood Type O pos Baby's MIGDALIA Negative KB Hemoglobin Negative Doses of RhIg Required 1 Discharge Plan Discharge Attending physician on discharge: Lynn Yuan Discharging Clinician: Lynn Yuan Anticipated Discharge Date/Time: 04/25/21 15:00 Patient Disposition: Home, Self-Care Activity: may shower, no straining, may drive after 2 weeks and pelvic rest Diet: as tolerated Patient Instructions: Antibiotic Form Stand Alone Forms: General Discharge Information Follow-up/Referrals: Lynn Yuan MD [Physician] - 1 Week Discharge Medications: New hydrocodone-acetaminophen 5-325 mg Tablet 1 tablet PO Q4-5H PRN (Reason: Moderate Pain (4-6)) Qty: 30 RF: 0 ibuprofen 600 mg Tablet 600 mg PO Q6H PRN (Reason: Cramping) Qty: 60 RF: 0 docusate sodium 100 mg Capsule 100 mg PO BID PRN (Reason: constipation) Qty: 60 RF: 0 Discontinued PNV cmb#[id number] fumarate-FA [] 28 mg iron- 800 mcg Tablet 1 tablet PO DAILY RF: 0 Novolin N NPH U-100 Insulin 100 unit/mL Suspension 20 unit SUBCUT HS RF: 0 Novolin R Regular U-100 Insuln 100 unit/mL Solution 4 unit subcut QACDINNER RF: 0 Novolin N NPH U-100 Insulin 100 unit/mL Suspension 10 unit SUBCUT QACBREAK RF: 0 Date of admission: 04/23/21 05:30 Primary Care Provider: PHYSICIAN,CATARACT LENS GENERATOR Admitting Provider: Maria Elena Masters Attending physician on admission: Maria Elena Masters Condition: Stable
[2021-04-25 08:00] VITALS: PULSE 76; RESP 18; O2SAT 94
[2021-04-25 08:30] VITALS: BP 122/82; PULSE 76; RESP 18; TEMP 36.5; O2SAT 94
[2021-04-25] MEDS: DOCUSATE SODIUM 100 MG CAPSULE PO (09:01)
[2021-04-25] MEDS: POLYSACCHARIDE IRON COMPLEX 150 MG CAPSULE PO (09:02)
[2021-04-25] MEDS: HYDROcodone/acetaminophen (*CRX) 5-325 MG TABLET 1 TAB PO (12:27)
--- NOTE | 2021-04-25 12:47 | PC.NURSE ---
Patient was given the opportunity to view the discharge video Mother & Baby Care, The First Two Weeks and to ask questions. Patient declined viewing the video and has been given the mother/baby guide for home reference.
--- NOTE | 2021-04-25 12:55 | PCCCNOTE ---
Addendum entered by RENETTA Lee 04/27/21 08:25: Received email confirmation that [facility] will take a report, #[id number]. Original Note: Care Coordination Consult: Met with pt. today who reports this is her second child. She has a one year old boy at home. Pt. lives at home with EDIL Ramirez and their son. Pt. has all necessary supplies for baby at home including a crib, car seat, clothing, diapers and bottles. Pt. anticipates bottle feeding at discharge. Pt. reports this is the second she's had where she has struggled with gestational diabetes. Pt. normally does not need to take insulin or manage her diet when she is not , pt. anticipates no issues with affording food or other needs at discharge. Pt. plans to establish with WIC for this baby. Also plans to re-apply for SNAP benefits through the state. Provided resources. Spoke about marijuana use and pt. reports she recreationally uses marijuana. Denies a reliance on Marijuana. Denies any other substance abuse use. Pt. has no plans to breast feed at discharge. Pt. aware baby was also positive for marijuana. Spoke about whether she would feel she would benefit from home services, she declined. Reports her recently found employment and they are now no longer struggling as much as they were when Covid-19 hit and he was laid off. Declined all other case management needs. [facility] online report was completed, [id number].
[2021-04-26 08:14] VITALS: BP 143/84; PULSE 82; RESP 20; TEMP 37.3; O2SAT 100
== END 2021-04-25 16:35 | disposition home or self-care (01) | DRG 540 ==
LOC: ANHOB2 04-25 15:37 → ANHLDR 04-26 08:44 → ANHOB2 04-26 08:44
PROVIDERS: Obstetrics & Gynecology; Admitting Provider Obstetrics & Gynecology; Visit Provider Obstetrics & Gynecology
PROC: 10D00Z1 Extraction of Products of Conception, Low, Open Approach (ICD-10-PCS; CPT 59514; principal; 2021-04-23 07:30)
DX: O34.219 Maternal care for unspecified type scar from previous cesarean delivery (principal); O13.4 Gestational [pregnancy-induced] hypertension without significant proteinuria, complicating childbirth; O99.214 Obesity complicating childbirth; E66.01 Morbid (severe) obesity due to excess calories; O43.123 Velamentous insertion of umbilical cord, third trimester; O69.81X0 Labor and delivery complicated by cord around neck, without compression, not applicable or unspecified; O24.424 Gestational diabetes mellitus in childbirth, insulin controlled; Z3A.38 38 weeks gestation of pregnancy; Z37.0 Single live birth
CPT/HCPCS: 36415; 80307; 82948; 85025; 85460; 85461; 86592; 86850; 86900; 86901; 90384; 94640; A9270; J0131; J0690; J1885; J2274; J2370; J2405; J2590; J2790; J7030; J7120

== ENCOUNTER 2021-04-30 10:32 | Outpatient (CLI) | payer OTHER, SELFPAY ==
[2021-04-30 10:55] VITALS: BP 133/91; PULSE 59
[2021-04-30 11:00] VITALS: BP 133/91; PULSE 59
[2021-04-30 11:01] VITALS: BP 144/92; PULSE 60
[2021-04-30 11:03] LABS: Basophils Absolute Auto 0.1 K/mm3 (0.0-0.1); Basophils Percent Auto 0.6 % (0.2-1.2); Eosinophils Absolute Auto 0.2 K/mm3 (0-0.3); Eosinophils Percent Auto 2.2 % (0-4.4); Hematocrit 34.6 % (37.0-47.0); Hemoglobin 11.2 g/dL (12.0-15.0); Immature Granulocyte Absolute 0.06 K/mm3 (0.00-0.031); Immature Granulocyte Percent A 0.7 % (0-0.5); Lymphocytes Absolute Auto 2.77 K/mm3 (0.9-3.2); Lymphocytes Percent Auto 32.6 % (18.3-44.2); Mean Corpuscular HGB Conc 32.4 g/dl (32-36); Mean Corpuscular Hemoglobin 29.5 pg (26-34); Mean Corpuscular Volume 91.1 fl (80-100); Mean Platelet Volume 9.6 fl (7.4-10.4); Monocytes Absolute Auto 0.4 K/mm3 (0.1-0.6); Monocytes Percent Auto 4.4 % (2.6-8.5); Neutrophils Absolute Auto 5.1 K/mm3 (1.3-6.7); Neutrophils Percent Auto 59.5 % (45.5-73.1); Platelet Count Result 316 k/mm3 (150-375); Red Cell Distribution Width 14.1 % (11.5-14.5); White Blood Count 8.5 K/mm3 (4.5-10.0)
[2021-04-30 11:16] VITALS: BP 147/84; PULSE 64
[2021-04-30 11:18] LABS: Alanine Aminotransferase 12 U/L (4-35); Albumin Level 3.7 g/dL (3.5-5.1); Alkaline Phosphatase 96 U/L (38-126); Anion Gap 8 mmol/L (8-16); Aspartate Amino Transferase 18 U/L (14-36); Bilirubin,Total 0.3 mg/dL (0.2-1.3); Blood Urea Nitrogen 11 mg/dL (7-17); Calcium 8.7 mg/dL (8.4-10.2); Carbon Dioxide 24 mmol/L (22-30); Chloride 106 mmol/L (98-107); Estimated Glomerular Filt Rate > 60; Glucose 89 mg/dL (65-110); Potassium 4.3 mmol/L (3.4-5.0); Sodium 138 mmol/L (137-145); Uric Acid 3.3 mg/dL (2.5-7.5)
[2021-04-30 11:31] VITALS: BP 146/100; PULSE 71
[2021-04-30 11:46] VITALS: BP 141/87; PULSE 62
--- NOTE | 2021-04-30 11:50 | PC.NURSE ---
Dr Yuan notified of lab results and BP's. Patient ok dc home and go office on or friday for blood pressure check.
== END 2021-04-30 11:54 | disposition home or self-care (01) ==
LOC: ANHOBOP 10:37 → ANHOBPP 10:37
PROVIDERS: Visit Provider Obstetrics & Gynecology
DX: O13.9 Gestational [pregnancy-induced] hypertension without significant proteinuria, unspecified trimester (principal); Z3A.00 Weeks of gestation of pregnancy not specified
CPT/HCPCS: 36415; 80053; 84550; 85025; 99199

== ENCOUNTER 2022-02-17 23:49 | Emergency (ER) | payer OTHER, SELFPAY ==
[2022-02-17 23:53] VITALS: BP 138/84; PULSE 98; RESP 18; TEMP 36.8; O2SAT 99
--- NOTE | 2022-02-18 00:13 | ED.GENADULT ---
HPI - General Adult General Chief complaint: Allergic Reaction Stated complaint: hives Time Seen by Provider: 02/18/22 00:11 Source: patient Mode of arrival: ambulatory Limitations: no limitations History of Present Illness HPI narrative: This is a 31-year-old female that presents to the emergency department for itchy rash over the last couple of days. Reports she used a new lotion and has been having hives ever since. She has been taking Benadryl and using an [id number] hydrocortisone cream with little relief. Denies difficulty breathing or trouble swallowing. Related Data Home Medications Medication Instructions Recorded Confirmed No Home Medications 02/17/22 02/17/22 Allergies Allergy/AdvReac Type Severity Reaction Status Date / Time No Known Allergies Allergy Verified 02/17/22 23:56 Review of Systems Review of Systems: CONSTITUTIONAL: Denies fever SKIN: Reports rash and itching. All systems reviewed & are unremarkable except as noted in HPI and below PMFSH Past Medical History Medical History delivery delivered Gestational diabetes 1 Healthy female adult IUP (intrauterine ), incidental Morbid obesity with BMI of 50.0-59.9, adult Surgical History Surgical History No history of previous surgery Family History Family History Mother Chronic obstructive pulmonary disease Social History Social History Smoking status: Never smoker Substance use: current Gender identity (if verbalized by the patient): Female Sexual Orientation (if Verbalized by the Patient): Straight or Heterosexual Spiritual care concerns: No Exam Narrative: GENERAL: Well-appearing, well-nourished, and in no acute distress. HEAD: Normocephalic, atraumatic. EYES: EOMI. ENT: Nares clear, no rhinorrhea or epistaxis. Mucous membranes moist. Oropharynx without tonsillar hypertrophy exudate or other lesions. Bilateral TMs pearly moody non-bulging CHEST: No respiratory distress. HEART: Regular rate EXTREMITIES: Normal range of motion. No edema. SKIN: Warm, dry. Diffuse hives with excoriation NEURO: No focal deficits. Alert and oriented x3. PSYCH: Normal mood and affect Course Vital Signs Vital signs: Vital Signs Temperature 98.2 F 02/17/22 23:53 Pulse Rate 98 02/17/22 23:53 Respiratory Rate 18 02/17/22 23:53 Blood Pressure 138/84 02/17/22 23:53 Pulse Oximetry 99 02/17/22 23:53 Oxygen Delivery Room Air 02/17/22 23:53 Temperature 98.2 F 02/17/22 23:53 Pulse Rate 98 02/17/22 23:53 Respiratory Rate 18 02/17/22 23:53 Blood Pressure 138/84 02/17/22 23:53 Pulse Oximetry 99 02/17/22 23:53 Oxygen Delivery Room Air 02/17/22 23:53 Medical Decision Making MDM Narrative Medical decision making narrative: Patient presents to the ER for urticaria on going over the last couple of days. Her vitals are normal. Airway is patent. No swelling of the lips, mouth or throat. Given solu-medrol and antihistamines in the ED with improvement. Instructed to avoid exacerbating factors and have some follow up with an cloth packer. She was given warnings to return to the ER Vital Signs Vital Signs: Vital Signs Temperature 98.2 F 02/17/22 23:53 Pulse Rate 98 02/17/22 23:53 Respiratory Rate 18 02/17/22 23:53 Blood Pressure 138/84 02/17/22 23:53 Pulse Oximetry 99 02/17/22 23:53 Oxygen Delivery Room Air 02/17/22 23:53 Temperature 98.2 F 02/17/22 23:53 Pulse Rate 98 02/17/22 23:53 Respiratory Rate 18 02/17/22 23:53 Blood Pressure 138/84 02/17/22 23:53 Pulse Oximetry 99 02/17/22 23:53 Oxygen Delivery Room Air 02/17/22 23:53 Critical Care Time Critical Care Time Critical Care Time: No Disch
[2022-02-18] MEDS: diphenhydrAMINE HCl INJ 50 MG/ML VIAL 25 MG IV PUSH (00:48)
[2022-02-18] MEDS: methylPREDNISolone SOD SUCC 125 MG VIAL IV PUSH (00:48)
[2022-02-18] MEDS: FAMOTIDINE 20 MG/2 ML VIAL IV PUSH (01:09)
== END 2022-02-18 02:03 | disposition home or self-care (01) ==
PROVIDERS: Emergency Provider Emergency Medicine
DX: L50.9 Urticaria, unspecified (principal); E66.01 Morbid (severe) obesity due to excess calories
CPT/HCPCS: 96374; 96375; 99284; J1200; J2930

== ENCOUNTER 2022-05-30 07:39 | Outpatient (RCR) | payer OTHER, SELFPAY | END 2022-05-30 08:00 | disposition home or self-care (01) | LOC: ANHLAB 07:39 | PROVIDERS: Visit Provider Obstetrics & Gynecology | DX: Z29.13 Encounter for prophylactic Rho(D) immune globulin (principal); O20.0 Threatened abortion; O36.0190 Maternal care for anti-D [Rh] antibodies, unspecified trimester, not applicable or unspecified; Z3A.00 Weeks of gestation of pregnancy not specified | CPT/HCPCS: 36415; 85461; 86850; 86900; 86901; 90384; 96372; J2790 ==

== ENCOUNTER 2022-06-28 12:05 | Outpatient (CLI) | payer OTHER, SELFPAY ==
[2022-06-28 13:43] LABS: Beta HCG Quantitative 9.88 mIU/ML
[2022-07-03 05:08] LABS: Progesterone 5.2 ng/mL (***)
== END 2022-06-28 12:06 | disposition home or self-care (01) ==
PROVIDERS: Visit Provider Obstetrics & Gynecology
DX: Z87.59 Personal history of other complications of pregnancy, childbirth and the puerperium (principal)
CPT/HCPCS: 36415; 84144; 84702

== ENCOUNTER 2022-07-01 12:20 | Outpatient (RCR) | payer OTHER, SELFPAY ==
[2022-05-30] MEDS: RHO(D) IMMUNE GLOBULIN 300 MCG/2 ML SYRINGE IM (11:58)
[2022-05-30 12:29] LABS: Beta HCG Quantitative 25.71 mIU/ML
[2022-05-31 10:53] LABS: Beta HCG Quantitative 20.55 mIU/ML
[2022-07-01 13:19] LABS: Beta HCG Quantitative 3.01 mIU/ML
== END 2022-08-28 23:59 | disposition home or self-care (01) ==
LOC: ANHLAB 12:20
PROVIDERS: Visit Provider Obstetrics & Gynecology
DX: O20.0 Threatened abortion (principal); Z3A.00 Weeks of gestation of pregnancy not specified
CPT/HCPCS: 36415; 84702; 96372

== ENCOUNTER 2022-08-27 17:05 | Outpatient (CLI) | payer OTHER, SELFPAY ==
[2022-08-27 17:54] LABS: Beta HCG Quantitative 15.92 mIU/ML
== END 2022-08-27 17:06 | disposition home or self-care (01) ==
LOC: ANHLAB 17:07
PROVIDERS: Visit Provider Obstetrics & Gynecology
DX: N91.2 Amenorrhea, unspecified (principal)
CPT/HCPCS: 36415; 84702

== ENCOUNTER 2022-08-29 09:49 | Outpatient (CLI) | payer OTHER, SELFPAY ==
[2022-08-29 10:56] LABS: Beta HCG Quantitative 46.43 mIU/ML
== END 2022-08-29 09:50 | disposition home or self-care (01) ==
LOC: ANHLAB 09:51
PROVIDERS: Visit Provider Obstetrics & Gynecology
DX: Z87.59 Personal history of other complications of pregnancy, childbirth and the puerperium (principal)
CPT/HCPCS: 36415; 84702

== ENCOUNTER 2023-02-26 13:56 | Outpatient (RCR) | payer OTHER, SELFPAY ==
[2023-02-27] MEDS: RHO(D) IMMUNE GLOBULIN 300 MCG/2 ML SYRINGE IM (12:23)
== END 2023-05-18 23:59 | disposition home or self-care (01) ==
LOC: ANHLAB 13:56
PROVIDERS: Visit Provider Obstetrics & Gynecology
DX: Z29.13 Encounter for prophylactic Rho(D) immune globulin (principal); Z36.89 Encounter for other specified antenatal screening; O36.0190 Maternal care for anti-D [Rh] antibodies, unspecified trimester, not applicable or unspecified; Z3A.00 Weeks of gestation of pregnancy not specified
CPT/HCPCS: 36415; 85461; 86850; 86900; 86901; 90384; 96372; J2790

== ENCOUNTER 2023-05-02 09:34 | Inpatient (IN) | payer OTHER, SELFPAY ==
[2023-05-02] VITALS (62 sets, daily range): BP systolic 70–121; BP diastolic 36–79; PULSE 51–96; RESP 12–16; TEMP 36.3–36.6; O2SAT 94–100; BMI 43.4
[2023-05-02] MEDS: ACETAMINOPHEN 500 MG TABLET 1000 MG PO (10:12)
[2023-05-02 10:21] LABS: Basophils Absolute Auto 0.1 K/mm3 (0.0-0.1); Basophils Percent Auto 0.4 % (0.2-1.2); Eosinophils Absolute Auto 0.1 K/mm3 (0-0.3); Hematocrit 35.7 % (37.0-47.0); Hemoglobin 11.4 g/dL (12.0-15.0); Immature Granulocyte Absolute 0.07 K/mm3 (0.00-0.031); Immature Granulocyte Percent A 0.5 % (0-0.5); Lymphocytes Absolute Auto 2.37 K/mm3 (0.9-3.2); Lymphocytes Percent Auto 17.5 % (18.3-44.2); Mean Corpuscular HGB Conc 31.9 g/dl (32-36); Mean Corpuscular Hemoglobin 28.6 pg (26-34); Mean Corpuscular Volume 89.7 fl (80-100); Mean Platelet Volume 10.3 fl (7.4-10.4); Monocytes Absolute Auto 0.7 K/mm3 (0.1-0.6); Monocytes Percent Auto 5.4 % (2.6-8.5); Neutrophils Absolute Auto 10.2 K/mm3 (1.3-6.7); Neutrophils Percent Auto 75.2 % (45.5-73.1); Platelet Count Result 212 k/mm3 (150-375); Red Blood Count 3.98 M/mm3 (4.2-5.4); White Blood Count 13.5 K/mm3 (4.5-10.0)
[2023-05-02] MEDS: LACTATED RINGERS 1,000 ML 125 ML IV CONT ×2 (10:26→11:20)
--- NOTE | 2023-05-02 10:32 | LDADM ---
This patient, Henrietta Han, was admitted to Labor/Delivery/Recovery 120 on 05/02/23 at 09:34. Plans for c section, pain management and were discussed with patient. Patient/family oriented to hospital policies and general routines including ID bracelet, bed and alarms, visiting hours, pain management, procedures, bathroom and other care routines, personal items, smoking policy, room service/diet and guest tray routines, security routines, and visiting hours. Patient/Family are encouraged to report perceived risks to care and to ask questions if they do not understand what they are told or what they should do. See OBIX for further documentation.
[2023-05-02 10:43] LABS: Barbiturate Screen Urine Negative (Negative)
[2023-05-02 10:48] LABS: Amphetamine Screen Urine Negative (Negative); Benzodiazepines Screen Urine Negative (Negative); Cannabinoid Screen Urine Positive (Negative); Cocaine Screen Urine Negative (Negative); Methadone Screen Urine Negative (Negative); Opiate Screen Urine Negative (Negative); Phencyclidine Screen Urine Negative (Negative)
[2023-05-02 10:58] LABS: Rapid Plasma Reagin Non-Reactive (NonReactive)
--- NOTE | 2023-05-02 11:59 | WPDANESEPPF ---
Anes - Initial Pre Proc Eval Procedure: Operation Date: 05/02/23 12:00 Proposed Procedures p Repeat Section - Maria Elena Masters MD Date/Time: 05/02/23 11:59 Surgeon: Maria Elena Masters MD Pre Op Diagnosis: Repeat C Section w Bilateral Tubal Ligation Patient Data Age: 32 Gender: F Height: 1.54 m Weight: 102.5 kg Last Vital Signs Temp 36.3 C L 05/02/23 11:28 Pulse 85 05/02/23 10:27 BP 116/76 05/02/23 10:27 O2 Del Method Room Air 05/02/23 10:31 Allergies Allergy/AdvReac Type Severity Reaction Status Date / Time No Known Allergies Allergy Verified 04/29/23 14:35 Home Medications Medication Instructions Recorded Confirmed Type prenat.vits,javier,cvc-lwvh-iwmfj 1 tablet PO DAILY 05/02/23 05/02/23 History Laboratory Tests 05/02/23 10:11 WBC 13.5 H K/mm3 (4.5-10.0) RBC 3.98 L M/mm3 (4.2-5.4) Hgb 11.4 L g/dL (12.0-15.0) Hct 35.7 L % (37.0-47.0) MCV 89.7 fl (80-100) MCH 28.6 pg (26-34) MCHC 31.9 L g/dl (32-36) RDW 14.0 % (11.5-14.5) Plt Count 212 k/mm3 (150-375) MPV 10.3 fl (7.4-10.4) Immature Gran % (Auto) 0.5 % (0-0.5) Neut % (Auto) 75.2 H % (45.5-73.1) Lymph % (Auto) 17.5 L % (18.3-44.2) [place] % (Auto) 5.4 % (2.6-8.5) Eos % (Auto) 1.0 % (0-4.4) Baso % (Auto) 0.4 % (0.2-1.2) Lymph # (Auto) 2.37 K/mm3 (0.9-3.2) [place] # (Auto) 0.7 H K/mm3 (0.1-0.6) Eos # (Auto) 0.1 K/mm3 (0-0.3) Baso # (Auto) 0.1 K/mm3 (0.0-0.1) Abs Immat Gran (auto) 0.07 H K/mm3 (0.00-0.031) Absolute Neuts (auto) 10.2 H K/mm3 (1.3-6.7) Absolute Nucleated RBC 0.0 K/mm3 (0.0-0.012) Nucleated RBC % 0.0 % (0.0-0.2) Urine Opiates Screen Negative (Negative) Urine Methadone Screen Negative (Negative) Ur Barbiturates Screen Negative (Negative) Ur Phencyclidine Scrn Negative (Negative) Ur Amphetamine Screen Negative (Negative) U Benzodiazepines Scrn Negative (Negative) Urine Cocaine Screen Negative (Negative) U Cannabinoids Screen Positive A (Negative) RPR Non-reactive (NonReactive) Blood Type O Negative Antibody Screen Positive Antibody Identification Pending Antigen Identification Cancelled MIGDALIA, IgG Interpret Pending MIGDALIA, Poly Interpret Negative MIGDALIA, Complement Interp Pending Patient hx anesthesia problems: none Family hx anesthesia problems: none Results Review: All pre-operative results and documents have been reviewed as part of the pre-operative evaluation. [facility] Past Medical History Medical History delivery delivered Gestational diabetes 1 Healthy female adult IUP (intrauterine ), incidental Morbid obesity with BMI of 50.0-59.9, adult Surgical History Surgical History No history of previous surgery Family History Family History Mother Chronic obstructive pulmonary disease Sibling Hypertension Social History Social History Smoking status: Former smoker Tobacco type: cigarettes Smoking end date: 04/21/22 Substance use: never Do You Feel Safe in your Home?: Yes Lack of Transportation: No Lack of Food: Never True Current Housing: I Have Housing Concerned About Future Housing: No Difficulty Paying Gas/Electric Bills: No Difficulty Paying for Meds: No Currently Unemployed: No Education: High School Diploma/GED Difficulty w/ Childcare or Family Care: No Gender identity (if verbalized by the patient): Female Sexual Orientation (if Verbalized by the Patient): Straight or Heterosexual Spiritual care concerns: No Anes - Eval Final PreProcedure Day of Procedure
[2023-05-02] MEDS: FAMOTIDINE 20 MG/2 ML VIAL IV PUSH (14:09)
[2023-05-02] MEDS: ONDANSETRON INJ 4 MG/2 ML VIAL IV PUSH (14:10)
--- NOTE | 2023-05-02 14:11 | PM.IMHP ---
H&P: HPI History of Present Illness Date/Time: 05/02/23 14:11 Chief Complaint: Term gestation Narrative: this patient is a 32-year-old multiparous female with a term gestation who desires female sterilization. She has a history of repeat . We intend to repeat today and perform bilateral salpingectomy. She has no complaints. She denies any nausea, vomiting, fever, chills. She denies any chest pain or shortness of breath. Denies any loss of fluid, vaginal bleeding, contractions. understands procedure. She understands the risk. She understands that surgery may occur that result in hospitalization, more surgery, and severe ones. She understands risk of hemorrhage infection Review of Systems Review of Systems: All systems reviewed & are unremarkable except as noted in HPI and below Constitutional: Constitutional: Denies chills, Denies fatigue, Denies fever(s) and Denies weakness Eyes: Eyes: Denies blurry vision, Denies change in vision, Denies loss of peripheral vision, Denies loss of vision, Denies other visual disturbances and Denies eye pain ENT: Denies vertigo, Denies dizziness, Denies hearing loss, Denies mouth pain, Denies nasal obstruction, Denies neck mass and Denies neck pain Cardiovascular: Cardiovascular: Denies chest pain, Denies diaphoresis, Denies syncope, Denies leg edema and Denies dyspnea Respiratory: Respiratory: Denies chest congestion, Denies cough, Denies hemoptysis, Denies dyspnea and Denies wheezing Gastrointestinal: Gastrointestinal: Denies abdominal pain, Denies constipation, Denies diarrhea, Denies nausea and Denies vomiting Genitourinary: Genitourinary: Denies hematuria, Denies change in libido, Denies nocturia, Denies genital lesions, Denies flank pain and Denies urinary urgency Musculoskeletal: Musculoskeletal: Denies abnormal gait, Denies back pain, Denies myalgias, Denies arthralgias, Denies joint swelling, Denies muscle weakness and Denies neck pain Integumentary/Breasts: Skin/Breast: Denies swelling, Denies breast pain, Denies breast mass, Denies dry skin, Denies nipple discharge, Denies unusual bruising and Denies jaundice Neurologic: Denies Neuro-related abnormal movements, Denies Abnormal speech present, Denies abnormal gait, Denies behavioral changes, Denies confusion, Denies vertigo, Denies dizziness, Denies syncope, Denies loss of vision, Denies memory loss, Denies convulsions and Denies weakness Psychiatric: Psychiatric: Denies abnormal sleep pattern, Denies behavioral changes, Denies change in libido, Denies confusion, Denies depression, Denies anhedonia and Denies memory loss Endocrine: Endocrine: Reports no additional endocrine complaints, Denies change in libido and Denies fatigue Hematologic/Lymphatic: Hematologic/Lymphatic: Reports no additional hematologic/lymphatic complaints Allergic/Immunologic: Allergic/Immunologic: Reports no additional allergic/immunologic complaints and Denies wheezing PMFSH Past Medical History Medical History delivery delivered Gestational diabetes 1 Healthy female adult IUP (intrauterine ), incidental Morbid obesity with BMI of 50.0-59.9, adult Surgical History Surgical History No history of previous surgery Family History Family History Mother Chronic obstructive pulmonary disease Sibling Hypertension Social History Social History Smoking status: Former smoker Tobacco type: cigarettes Smoking end date: 04/21/22 Substance use: never Do You Feel Safe in your Home?: Yes Lack of Transportation: No Lack of Food: Never True Current Housing: I Have Housing Concerned About Future Housing: No Difficulty Paying Gas/Electric Bills: No Difficulty Paying for Meds: N
--- NOTE | 2023-05-02 14:14 | WPDHPUPDATE1 ---
History and Physical Update Update Date/Time: 05/02/23 14:14 History and Physical has been reviewed, including an updated exam of the patient. There are NO changes in the patient's condition. Risks, benefits, and alternatives have been discussed and questions answered. Patient agrees to proceed with procedure.
[2023-05-02] MEDS: ceFAZolin 2 GM/D5W 50 ML 2 GM/50 ML BAG IVPB (14:19)
[2023-05-02] MEDS: KETOROLAC 30 MG/ML VIAL (*BKC) 15 MG IV PUSH (15:30)
--- NOTE | 2023-05-02 15:41 | W.PM.OBCSD ---
OB - Delivery Note Procedure Delivery date: 05/02/23 Pre-op diagnosis: Previous Delivery and Other (Unwanted fertility) Post-op Diagnosis: Same Procedure Performed: Repeat and Tubal Ligation Surgeon: Maria Elena Masters MD Anesthesia type: Spinal Description of Procedure/Findings: The patient was taken the operating room.? She was prepped and draped in dorsal supine position with a leftward tilt.? This was done after spinal anesthetic was applied.? A low-transverse skin incision was made and carried down till of the fascia with the knife.? The fascial incision was made with the knife.? The fascial incision was extended laterally with Carrington scissors.? The fascia was tented upward superiorly and inferiorly the rectus muscles were dissected off bluntly.? The rectus muscles were the midline.? The preperitoneal fat and peritoneum were dissected open bluntly at the superior aspect of the rectus muscles.? The peritoneal incision was extended superior and inferior with good position of bladder.? The uterine incision was made with a scalpel down to the level of the amniotic cavity.? The amniotic cavity was entered bluntly.? The infant was delivered.? The cord was clamped and cut and the was handed off to waiting pediatric staff.? Cord bloods were obtained.? The placenta was removed manually.? The uterus was exteriorized.? The uterus was cleared of all clots, debris and membranes.? The uterus was closed in 0 Vicryl running lock fashion.? An imbricating over a was placed along the incision line as well.? The uterus was returned to the abdomen.? The gutters were cleared of all clots and debris.? The fascia was closed with 0 Vicryl running fashion.? The subcutaneous tissue was irrigated pinpoint bleeders were cauterized.? The skin was closed with subcuticular absorbable bhargavi.? The skin incision line was covered with glue.? The patient tolerated the procedure well.? She has taken recovery room in stable condition.? Sponge lap and needle counts were correct x2.? Estimated Blood Loss: 350 Pathology: None sent Complications: No immediate complications Condition: Stable Disposition: Floor [place] Baby Weeks of gestation at delivery: 39
[2023-05-02] MEDS: miSOPROStol 200 MCG TABLET 1000 MCG RECTAL (16:25)
--- NOTE | 2023-05-02 16:56 | PC.NURSE ---
[address] Masters on pt moderate bleeding. pad weight 130g. rubra & passing clots. tele order misoprostol rectal 1000mcg now
[2023-05-02] MEDS: diphenhydrAMINE HCl INJ 50 MG/ML VIAL 25 MG IV PUSH (17:06)
[2023-05-02] MEDS: MORPHINE SULFATE INJ (*CRX) 10 MG/ML AMP 3 MG IV PUSH (17:58)
[2023-05-02] MEDS: HYDROcodone/acetaminophen (*CRX) 5-325 MG TABLET 1 TAB PO ×2 (19:42→23:15)
[2023-05-02] MEDS: DEXTROSE 5%/0.45% SOD CHL 1,000 ML 125 ML IV CONT (22:16)
[2023-05-02] MEDS: IBUPROFEN 600 MG TABLET PO (23:15)
[2023-05-02] MEDS: LIDOCAINE 5% PATCH 1 PATCH TRANSDERM (23:15)
[2023-05-03 05:15] VITALS: BP 106/67; PULSE 62; RESP 16; TEMP 36.6
[2023-05-03] MEDS: IBUPROFEN 600 MG TABLET PO ×3 (05:51→22:22)
[2023-05-03] MEDS: SIMETHICONE 80 MG TAB.CHEW PO ×5 (05:51→22:22)
[2023-05-03] MEDS: HYDROcodone/acetaminophen (*CRX) 5-325 MG TABLET 1 TAB PO ×4 (05:51→22:22)
[2023-05-03 05:58] LABS: Basophils Percent Auto 0.3 % (0.2-1.2); Eosinophils Absolute Auto 0.1 K/mm3 (0-0.3); Eosinophils Percent Auto 0.8 % (0-4.4); Hematocrit 29.2 % (37.0-47.0); Hemoglobin 9.5 g/dL (12.0-15.0); Immature Granulocyte Absolute 0.08 K/mm3 (0.00-0.031); Immature Granulocyte Percent A 0.6 % (0-0.5); Lymphocytes Absolute Auto 2.04 K/mm3 (0.9-3.2); Lymphocytes Percent Auto 14.5 % (18.3-44.2); Mean Corpuscular HGB Conc 32.5 g/dl (32-36); Mean Corpuscular Hemoglobin 29.6 pg (26-34); Mean Platelet Volume 9.9 fl (7.4-10.4); Monocytes Absolute Auto 0.8 K/mm3 (0.1-0.6); Monocytes Percent Auto 5.6 % (2.6-8.5); Neutrophils Percent Auto 78.2 % (45.5-73.1); Platelet Count Result 184 k/mm3 (150-375); Red Blood Count 3.21 M/mm3 (4.2-5.4); Red Cell Distribution Width 14.1 % (11.5-14.5); White Blood Count 14.1 K/mm3 (4.5-10.0)
--- NOTE | 2023-05-03 07:57 | PM.OBPNVD ---
OB - PN: Subj Subjective Date/time seen: 05/03/23 07:57 Narrative: pp day 1 doing well no complaints OB - PN: Obj Data Labs 05/03/23 05:53 Labs: Laboratory Results - last 24 hr 05/02/23 05/03/23 10:11 05:53 WBC 13.5 H 14.1 H RBC 3.98 L 3.21 L Hgb 11.4 L 9.5 L Hct 35.7 L 29.2 L MCV 89.7 91.0 MCH 28.6 29.6 MCHC 31.9 L 32.5 RDW 14.0 14.1 Plt Count 212 184 MPV 10.3 9.9 Immature Gran % (Auto) 0.5 0.6 H Neut % (Auto) 75.2 H 78.2 H Lymph % (Auto) 17.5 L 14.5 L [place] % (Auto) 5.4 5.6 Eos % (Auto) 1.0 0.8 Baso % (Auto) 0.4 0.3 Lymph # (Auto) 2.37 2.04 [place] # (Auto) 0.7 H 0.8 H Eos # (Auto) 0.1 0.1 Baso # (Auto) 0.1 0.0 Abs Immat Gran (auto) 0.07 H 0.08 H Absolute Neuts (auto) 10.2 H 11.0 H Absolute Nucleated RBC 0.0 0.0 Nucleated RBC % 0.0 0.0 Urine Opiates Screen Negative Urine Methadone Screen Negative Ur Barbiturates Screen Negative Ur Phencyclidine Scrn Negative Ur Amphetamine Screen Negative U Benzodiazepines Scrn Negative Urine Cocaine Screen Negative U Cannabinoids Screen Positive A RPR Non-reactive Blood Type O Negative O Negative Antibody Screen Positive Antibody Identification Inconclusive Antigen Identification Cancelled MIGDALIA, IgG Interpret Not Performed MIGDALIA, Poly Interpret Negative MIGDALIA, Complement Interp Not Performed OB - PN A/P Plan day: 1 Plan: routine care Time Spent With Patient Time: Total time spent is greater than 50% in coordination of care (as documented) at patient's floor/unit and/or counseling patient: Exam Const: General: cooperative and healthy appearing Chest: Chest palpation & inspection: normal inspection of the chest Resp: Effort & Inspection: normal respiratory effort Cardio: Rate: regular rate GI: Other: Incision CDI Skin: General skin exam: normal color Neuro: General: patient oriented x3
[2023-05-03 09:30] VITALS: BP 115/55; PULSE 66; RESP 16; TEMP 36.6; O2SAT 98
[2023-05-03] MEDS: POLYSACCHARIDE IRON COMPLEX 150 MG CAPSULE PO ×2 (09:49→15:58)
[2023-05-03] MEDS: DOCUSATE SODIUM 100 MG CAPSULE PO ×2 (09:49→15:57)
[2023-05-03] MEDS: MULTIVIT/MIN/PREN/FOL AC/IRON TABLET 1 TAB PO (09:49)
[2023-05-03] MEDS: HYDROcodone/acetaminophen (*CRX) 10-325 MG TABLET 1 TAB PO (09:56)
--- NOTE | 2023-05-03 10:05 | WPDANLDNPN2 ---
Anes-Prog Note L&D-Neuraxial Date/Time: 05/03/23 10:05 Neuraxial medications: epidural PF morphine Opiod-related complaints: none Patient feedback: Patient satisfied with post-operative pain management.
[2023-05-03] MEDS: FLUCONAZOLE 150 MG TABLET PO (12:12)
[2023-05-03] MEDS: RHO(D) IMMUNE GLOBULIN 300 MCG/2 ML SYRINGE IM (14:29)
[2023-05-03 14:30] VITALS: BP 111/60; PULSE 69; RESP 18; TEMP 36.3; O2SAT 100
[2023-05-03] MEDS: metroNIDAZOLE 500 MG TABLET PO ×2 (14:33→22:22)
[2023-05-03 19:48] VITALS: BP 112/76; PULSE 85; RESP 16; TEMP 36.6
[2023-05-03] MEDS: diphenhydrAMINE HCl CAP 25 MG CAPSULE (19:50)
[2023-05-03] MEDS: LIDOCAINE 5% PATCH 1 PATCH TRANSDERM (23:23)
[2023-05-04] MEDS: SIMETHICONE 80 MG TAB.CHEW PO ×3 (04:40→11:05)
[2023-05-04] MEDS: HYDROcodone/acetaminophen (*CRX) 5-325 MG TABLET 1 TAB PO (04:40)
[2023-05-04] MEDS: IBUPROFEN 600 MG TABLET PO ×2 (04:40→11:05)
[2023-05-04] MEDS: metroNIDAZOLE 500 MG TABLET PO ×2 (06:30→14:00)
[2023-05-04 07:49] VITALS: BP 115/70; PULSE 71; RESP 16; TEMP 36.5; O2SAT 98
[2023-05-04] MEDS: MULTIVIT/MIN/PREN/FOL AC/IRON TABLET 1 TAB PO (08:00)
[2023-05-04] MEDS: DOCUSATE SODIUM 100 MG CAPSULE PO (08:00)
[2023-05-04] MEDS: HYDROcodone/acetaminophen (*CRX) 10-325 MG TABLET 1 TAB PO ×2 (08:00→11:05)
[2023-05-04] MEDS: POLYSACCHARIDE IRON COMPLEX 150 MG CAPSULE PO (08:00)
--- NOTE | 2023-05-04 09:46 | PM.OBPNVD ---
OB - PN: Subj Subjective Date/time seen: 05/04/23 09:46 Interval history: pp day 2 doing well plans d/c home OB - PN: Obj Data Labs 05/03/23 05:53 Labs: Laboratory Results - last 24 hr 05/03/23 05:53 Blood Type O Negative Antibody Screen Negative Screen Negative Baby's Blood Type O pos Baby's MIGDALIA Negative Doses of RhIg Required 1 OB - PN A/P Plan day: 2 Plan: routine care and discharge home Time Spent With Patient Time: Total time spent is greater than 50% in coordination of care (as documented) at patient's floor/unit and/or counseling patient: Review of Systems Review of Systems: All systems reviewed & are unremarkable except as noted in HPI and below Exam Const: General: cooperative, healthy appearing and comfortable Resp: Effort & Inspection: normal respiratory effort GI: Other: incision CDI Neuro: General: patient oriented x3
--- NOTE | 2023-05-04 09:49 | PM.OBDSVD ---
DS: Admitting Diagnosis Discharge Date 05/04/23 Admitting Diagnosis rpt DS: Discharge Diagnosis Discharge Diagnosis (1) delivery delivered: Code(s): O82 - Encounter for delivery without indication Status: Acute OB - DS: Summary OB Procedures : None OB Procedures Intrapartum: OB Procedures: : None Peripartum Data Procedures: Procedures Operation Date: 05/02/23 12:00 Actual Procedure Side Surgeon p Repeat Section Not Applicable Maria Elena Masters MD Time Spent with Patient Time attestation: Total time spent providing and/or coordinating discharge services: DS: Data Data Completed and Pending Pending studies at discharge: Pending at discharge 05/02/23 15:11 Surgical [PTH] Routine Labs on day of discharge: Labs from last 24 hours 05/03/23 05:53 Blood Type O Negative Antibody Screen Negative Screen Negative Baby's Blood Type O pos Baby's MIGDALIA Negative Doses of RhIg Required 1 Discharge Plan Discharge Attending physician on discharge: Maria Elena Masters Discharging Clinician: Ngoc Morris Patient Disposition: Home, Self-Care Activity: pelvic rest Diet: regular Patient Instructions: Antibiotic Form Stand Alone Forms: General Discharge Information Follow-up/Referrals: Calvin De La Rosa MD [Physician] - 1 Week Discharge Medications: New hydrocodone-acetaminophen 5-325 mg Tablet 1 tablet PO Q3H PRN (Reason: Moderate Pain (4-6)) Qty: 20 0RF ibuprofen 600 mg Tablet 600 mg PO Q6H PRN (Reason: Cramping) Qty: 30 0RF Continued Vitamin Tablet 1 tablet PO DAILY Date of admission: 05/02/23 09:34 Primary Care Provider: PHYSICIAN,CANAL LOCK TENDER CHIEF OPERATOR Admitting Provider: Maria Elena Masters Attending physician on admission: Maria Elena Matsers Condition: Stable
--- NOTE | 2023-05-04 11:45 | PC.NURSE ---
1145 Pt reports having a wheezy cough since delivery. Lung worley clear yesterday, but crackles heard in lower bases during auscultation today. Reported to Ngoc Morris. Orders for incentive spirometer, cough syrup and albuterol inhaler received.
[2023-05-04] MEDS: ALBUTEROL SULFATE (*SP) INHALER 2 PUFF INHALATION (12:00)
[2023-05-04] MEDS: guaiFENesin/DEXTROMETHORPHAN 10 ML UDC PO (12:00)
--- NOTE | 2023-05-04 14:22 | PCCCNOTE ---
Met with pt. who reports this is her 3rd child. EDIL Ramirez is supportive. Pt. has all necessary equipment and supplies for baby at home. Pt. confirms she recreationally uses marijuana. Reports she plans to bottle feed baby at discharge as she was advised not to breast feed by the fraud examiner. Has information to establish with [place] for this baby. Denies any other needs.
[2023-05-05 10:16] VITALS: BP 123/81; PULSE 78; RESP 18; TEMP 37.4; O2SAT 99
== END 2023-05-04 14:30 | disposition home or self-care (01) | DRG 539 ==
LOC: ANHLDR 09:45 → ANHOB2 18:46
PROVIDERS: Admitting Provider Obstetrics & Gynecology; Visit Provider Obstetrics & Gynecology
PROC: 10D00Z1 Extraction of Products of Conception, Low, Open Approach (ICD-10-PCS; CPT 59514; principal; 2023-05-02 12:00)
DX: O34.211 Maternal care for low transverse scar from previous cesarean delivery (principal); Z37.0 Single live birth; Z3A.39 39 weeks gestation of pregnancy; Z30.2 Encounter for sterilization
CPT/HCPCS: 36415; 80307; 85025; 85461; 86592; 86850; 86880; 86900; 86901; 88302; 90384; A9270; J0690; J1200; J1885; J2270; J2274; J2405; J2790; J7120

== ENCOUNTER 2024-06-04 15:02 | Emergency (ER) | payer SELFPAY ==
--- NOTE | ~2024-06-04 | XR_ITS ---
XR knee LT min 4V 06/04/2024 15:36 Indication: Left knee pain Procedure: 4 views left knee Comparison: No prior studies for comparison. Findings: No fracture, subluxation or dislocation. There is a small joint effusion. No foreign bodies . Impression: 1: Small knee effusion. Reviewed, dictated and finalized at location B. NG APPLICATOR Impression: 1: Small knee effusion.
--- OUTSIDE RECORDS SUMMARY | 2024-06-04 15:05 | XMS_ITS | Patient Health Summary ---
Author Organization [facility] Address [address] [place] [address] Care Team Providers Care Orientor Name Role Phone Kelin Martinez MD Primary Care Provider [phone] Note from [facility],non-owned Affiliates and Associated Physician Practices is amultiple site organization consisting of ambulatory clinics and hospital sitesin [place], [place], [place] and [place]. This disclosure is being madepursuant to the Care Everywhere program and may not contain all information available regarding this patient. Last updated 18.[facility] Allergies No known active allergies Medications * Be aware that medications may not be up to date on this document. Alwaysverify current medications with the patient. * desogestrel-ethinyl estradiol (RECLIPSEN) 0.15-30 MG-MCG tablet(Started 07/02/2010) Take 1 Tab by mouth daily. Indications: Abnormal Growth of Body or Facial Hair 12 refills left * spironolactone (ALDACTONE) 50 MG tablet(Started 07/02/2010) Take 1 Tab by mouth 2 times daily. Indications: Polycystic Ovary Syndrome 12 refills left Active Problems Problem Noted Date Diagnosed Date PCOS (polycystic ovarian syndrome) Hirsutism Social History Tobacco Use Types Packs/Day Years Used Date Smoking Tobacco: Never Assessed Alcohol Use Standard Drinks/Week Comments No 0 (1 standard drink = 0.6 oz pur e alcohol) Sex and Gender Information Value Date Recorded Sex Assigned at Not on file Gender Identity Not on file Sexual Orientation Not on file Last Filed Vital Signs Vital Sign Reading Time Taken Comments Blood Pressure - - Pulse - - Temperature - - Respiratory Rate - - Oxygen Saturation - - Inhaled Oxygen Concentration - - Weight 93.7 kg (206 lb 9.1 oz) 07/02/2010 10:29 AM CDT Height 153 cm (5' 0.24 ) 07/02/2010 10:29 AM CDT Body Mass Index 40.03 07/02/2010 10:29 AM CDT Procedures * CHLAMYDIA + GC AMPLIFIED PROBE(Performed 07/01/2011) * TESTOSTERONE FREE+TOT FEM/CHLD HYPOGNDL MALE(Performed 07/02/2010) Performed for Hirsutism * HEPATITIS B SURFACE ANTIGEN W RFLX CONFIRMATION(Performed 07/02/2010) Performed for Screen for STD (sexually transmitted disease) * HEPATITIS C ANTIBODY(Performed 07/02/2010) Performed for Screen for STD (sexually transmitted disease) * RPR(Performed 07/02/2010) Performed for Screen for STD (sexually transmitted disease) * HIV-1 DNA PCR QUALITATIVE(Performed 07/02/2010) Performed for Screen for STD (sexually transmitted disease) * CHLAMYDIA + GC AMPLIFIED PROBE(Performed 07/02/2010) Performed for Screen for STD (sexually transmitted disease) * XR KNEE LEFT 2VW OR LESS(Performed 05/10/2009) Results * CHLAMYDIA + GC AMPLIFIED PROBE (07/01/2011 4:39 PM CDT) Only the most recent of2 resultswithin the time period is included. Chlamydia trachomatis DNA NOT DETECTED NOT DETECTED [facility] Neisseria gonorrhoeae DNA SDA NOT DETECTED NOT DETECTED [facility] See Note SEE NOTE [facility] Comment: This test was performed using the BD ProbeTec(TM) Chlamydia trachomatis and Neisseria gonorrhoeae Amplified DNA Assays. REPORT COMMENT: PREFERRED LAB:->[facility] Test Performed at: [facility] [place] [id number] [place] [phone] JENNIE NELSON DO,MPH 07/01/2011 4:39 PM CDT 07/01/2011 4:40 PM CDT Narrative [facility] - 07/02/2011 2:00 PM CDT Preferred Lab:->[facility] Jailyn Self MD LAB - MICROBIOLOGY O RDERABLES [facility] * RPR (07/02/2010 12:13 PM CDT) RPR Non-Reacti ve Non Reactive [facility] BLOOD SPECIMEN / Unknown 07/02/2010 12:13 PM CDT 07/02/2010 12:13 PM CDT Narrative Resulting Agency Comment Performed By [facility] [address] [place] [address] Jailyn Self MD LAB - CHEMISTRY [place] Performing Organization Address City/[facility]/ZIP Co de Phone Number [facility] [address] [place] [phone] * TESTOSTERONE FREE+TOT FEM/CHLD HYPOGNDL MALE (07/02/2010 12:13 PM CDT) Testosterone Female/Child 44 8 - 63 ng/dl [facility] Sex Hormone Binding Globulin 95 19 - 145 nmol/L [facility] Testosterone Free LC-MS 3.6 1.2 - 9.9 pg/ml [facility] Comment Ref Lab [facility] Comment: Total Testoterone: Patrick Stage Reference Intervals Male Female Patrick Stage I Less than 20 ng/dL Less than 17 ng/dL Patrick Stage II 2-149 ng/dL 4-39 ng/dL Patrick Stage III 7-762 ng/dL 10-60 ng/dL Patrick Stage IV 165-854 ng/dL 8-63 ng/dL Patrick Stage V 194-783 ng/dL 10-60 ng/dL Testosterone, Free LC-MS/MS: Patrick Stage Reference Intervals Male Female Patrick Stage I Less than 3.8 pg/mL Less than 2.2 pg/mL Patrick Stage II 0.3-21 pg/mL 0.4-4.5 pg/mL Patrick Stage III 1-98 pg/mL 1.3-7.5 pg/mL Patrick Stage IV 35-169 pg/mL 1.1-15.5 pg/mL Patrick Stage V 41-239 pg/mL 0.8-9.2 pg/mL To convert to pmol/L, multiply pg/mL by 3.47 The concentration of Free Testosterone is derived from a mathmatical expression based on the constant for the binding of testosterone to sex hormone binding globulin. BLOOD SPECIMEN / Unknown 07/02/2010 12:13 PM CDT 07/02/2010 12:13 PM CDT Narrative [facility] - 07/05/2010 12:28 AM CDT 1 Resulting Agency Comment Performed By [email or web address] [address] [place] [phone] Jailyn Self MD LAB - CHEMISTRY [place] Performing Organization Address City/[facility]/ZIP Co de Phone Number [facility] [address] [place] [phone] * HEPATITIS B SURFACE ANTIGEN (07/02/2010 12:13 PM CDT) Hepatitis B Virus Surface Antigen Non-reacti ve Non-reacti ve [facility] BLOOD SPECIMEN / Unknown 07/02/2010 12:13 PM CDT 07/02/2010 12:13 PM CDT Jailyn Self MD LAB - CHEMISTRY [place] Performing Organization Address [facility] Co de Phone Number [facility] [address] [place] [phone] * HEPATITIS C ANTIBODY (07/02/2010 12:13 PM CDT) Hepatitis C Antibody Screen Non-reactive Non-react janet [facility] Disclaimer HCV Nonreactive - Antibodies to HCV were not detected, result does not exclude early acute HCV infection. [facility] BLOOD SPECIMEN / Unknown 07/02/2010 12:13 PM CDT 07/02/2010 12:13 PM CDT Jailyn Self MD LAB - CHEMISTRY [place] Performing Organization Address City/[facility]/ZIP Co de Phone Number [facility] [address] [place] [phone] * HIV-1 DNA PCR QUALITATIVE (07/02/2010 12:10 PM CDT) HIV-1 DNA By PCR Not Detected Not Detected [facility] Comment Ref Lab [facility] Comment: INTERPRETATION: HIV-1 DNA PCR, QUALITATIVE This test will be inactivated with the August 2010 Hot Line due to booking prizer's discontinuation of reagent. For sensitive and specific detection of HIV-1 RNA from plasma, consider ordering the HIV-1 RNA Quantitative Real-Time PCR. This test detects human immunodeficiency virus type 1(HIV-1)proviral DNA. Assay methodology is polymerase chain reaction (PCR) using the [employer] HIV-1 DNA Test, version 1.5. This test is optimized to yield equivalent amplification of Group M subtypes of HIV-1. A result of Not Detected does not rule out HIV-1 DNA concentrations below the limit of detection of the assay or the presence of PCR inhibitors in the patient specimen. Improper specimen handling can cause false negatives. PCR may not detect infection in the first months of life. The diagnosis of HIV-1 infection should be made based on clinical presentation and results from additional diagnostic tests. Diagnosis should not be made based on a single HIV-1 test. False positives can be caused by PCR contamination. This test uses a kit designated by the booking prizer as for research use, not for clinical use. The performance characteristics of this test were validated by [email or web address] The U.S. Food and Drug Administration (FDA) has not approved or cleared this test. The results are not intended to be used as the sole means for clinical diagnosis or patient management decisions. [employer] is authorized under Clinical Laboratory Improvement Amendments (CLIA) and by all states to perform high-complexity testing. This assay should not be used for blood donor screening, associated re-entry protocols, or for screening Human Cell, Tissues and Cellular Tissue-Based Products (HCT/P). BLOOD SPECIMEN / Unknown 07/02/2010 12:10 PM CDT 07/02/2010 12:12 PM CDT Narrative [facility] - 07/05/2010 12:28 AM CDT 1 Resulting Agency Comment Performed By [email or web address] [address] [place] [phone] Jailyn Self MD LAB - SEROLOGY ORDER VIANCA [facility] [address] [place] [address] * XR KNEE 1 OR 2 VW LEFT (05/10/2009 5:02 PM HOME ENERGY INSPECTOR) Anatomical Region Laterality Modality Lower Extremity Other 05/10/2009 5:02 PM HOME ENERGY INSPECTOR Narrative 05/10/2009 5:33 PM HOME ENERGY INSPECTOR AP, LATERAL Normal. Reading RadiologistRafael BRIAN MD Releasing RadiologistRafael BRIAN MD Released Date Time- 05/10/091733 Medicine [place] BRIAN MD MD MELISSA LAMA MD ORD- SCHIFF, TERESA B CON- PCP- AHMAD, SHAFIQUE SCP- Procedure Note Troy Brian MD - 05/10/2009 AP, LATERAL Normal. Reading Werner BRIAN MD Releasing Werner BRIAN MD Released Date Time- 05/10/091733 Jayesh BRIAN MD MD MELISSA LAMA MD ORD- SCHIFF, TERESA B CON- PCP- AHMAD, SHAFIQUE SCP- Kristan Valdes MD DIAGNOSTIC IMAGING O [facility] Care Teams Orientor Relationship Specialty Start Date End Date Kelin Martinez MD [address] [place] [address] PCP - General 05/10/09
--- OUTSIDE RECORDS SUMMARY | 2024-06-04 15:05 | XMS_ITS | Clinical Summary ---
Author Organization [facility] Address [address] [place] [address] Care Team Providers Care Senior Laboratory Technician Name Role Phone Kelin Martinez MD Primary Care Provider [phone] [facility],non-owned Affiliates and Associated Physician Practices is amultiple site organization consisting of ambulatory clinics and hospital sitesin [place], [place], [place] and [place]. This disclosure is being madepursuant to the Care Everywhere program and may not contain all information available regarding this patient. Last updated 18.[facility] Allergies No known active allergies Medications * Be aware that medications may not be up to date on this document. Alwaysverify current medications with the patient. Medication Sig Dispensed Refills Start Date End Date Status desogestrel-ethinyl estradiol (RECLIPSEN) 0.15-30 MG-MCG tabletIndications:Hi rsutism Take 1 Tab by mouth daily. Indications: Abnormal Growth of Body or Facial Hair 28 Tab 12 07/02/2010 Active spironolactone (ALDACTONE) 50 MG tabletIndications:Po lycystic Ovary Syndrome Take 1 Tab by mouth 2 times daily. Indications: Polycystic Ovary Syndrome 60 Tab 12 07/02/2010 Active Active Problems Problem Noted Date Diagnosed Date PCOS (polycystic ovarian syndrome) Overview (07/02/2010): elevated free testosterone, seen by endo Hirsutism Social History Tobacco Use Types Packs/Day [...] Mass Index 40.03 07/02/2010 10:29 AM CDT Plan of Treatment Health Maintenance Due Date Last Done Comments PAP SMEAR 1992 DTAP/TDAP/TD VACCINES (1 - Tdap) 11/08/2011 HEPATITIS B VACCINE (1 of 3 - 19+ 3-dose series) 11/08/2011 COVID-19 VACCINE ( - 2023-2 5 season) 2023 INFLUENZA VACCINE (#1) 2023 DEPRESSION SCREENING 04/21/2024 ZOSTER VACCINE (1 of 2) 2042 HEPATITIS C SCREENING Completed 07/02/2010 HIV SCREENING Completed 07/02/2010 HIB VACCINE Aged Out No longer eligi ble based on patient's age to complete this topic HPV VACCINE Aged Out No longer eligi ble based on patient's age to complete this topic MENINGOCOCCAL (Group B) VACCINE Aged Out No longer eligible based on patient's age to complete this topic MENINGOCOCCAL VACCINE Aged Out No grace linda eligible based on patient's age to complete this topic PNEUMOCOCCAL VACCINE Aged Out No long er eligible based on patient's age to complete this topic Procedures Procedure Name Priority Date/Time Associated Diagnosis Comments HEPATITIS C ANTIBODY Routine 07/02/2010 12:13 PM CDT Screen for STD (sexually transmitted disease) HIV-1 DNA PCR QUALITATIVE Routine 07/02/2010 12:10 PM CDT Screen for STD (sexually transmitted disease) from Last 3 Months or Most Recently Relevant to Health Maintenance Results * HEPATITIS C ANTIBODY (07/02/2010 12:13 PM CDT) Hepatitis C Antibody Screen Non-reactive Non-react janet [facility] Disclaimer HCV Nonreactive - Antibodies to HCV were not detected, result does not exclude early acute HCV infection. [facility] BLOOD SPECIMEN / Unknown 07/02/2010 12:13 PM CDT 07/02/2010 12:13 PM CDT Jailyn Self MD LAB - CHEMISTRY [place] BRUNO [facility] [address] [place] [address] * HIV-1 DNA PCR QUALITATIVE (07/02/2010 12:10 PM CDT) Pathologist [facility] HIV-1 DNA By PCR Not Detected Not Detected [facility] Comment Ref Lab [facility] Comment: INTERPRETATION: HIV-1 DNA PCR, QUALITATIVE This test will be inactivated with the August 2010 Hot Line due to recycling tech's discontinuation of reagent. For sensitive and specific [...] test uses a kit designated by the recycling tech as for research use, not for clinical use. The performance characteristics of this test were validated by [employer], [employer]. The U.S. Food and Drug Administration (FDA) has not approved or cleared this test. The results are not intended to be used as the sole means for clinical diagnosis or patient management decisions. [employer] is authorized under Clinical Laboratory Improvement Amendments (CLIA) and by all states to perform high-complexity testing. This assay should not be used for blood donor screening, associated re-entry protocols, or for screening Human Cell, Tissues and Cellular Tissue-Based Products (HCT/P). BLOOD SPECIMEN / Unknown 07/02/2010 12:10 PM CDT 07/02/2010 12:12 PM CDT Narrative [facility] - 07/05/2010 12:28 AM CDT 1 Resulting Agency Comment Performed By [employer] [address] [place] [phone] Jailyn Self MD LAB - SEROLOGY ORDER VIANCA [facility] [address] [place] [address] from Last 3 Months or Most Recently Relevant to Health Maintenance Care Teams Senior Laboratory Technician Relationship Specialty Start Date End Date Kelin Martinez MD [address] [place] [address] PCP - General 05/10/09
--- OUTSIDE RECORDS SUMMARY | 2024-06-04 15:05 | XMS_ITS | Referral Summary ---
Author Organization [facility] Address [address] [place] [address] Care Team Providers Care High Tension Tester Name Role Phone Kelin Martinez MD Primary Care Provider [phone] Source Comments [facility],non-owned Affiliates and Associated Physician Practices is amultiple site organization consisting of ambulatory clinics and hospital sitesin [place], [place], [place] and [place]. This disclosure is being madepursuant to the Care Everywhere program and may not contain all information available regarding this patient. Last updated 18.[facility] Allergies No known active allergies Medications * [...] 07/02/2010 10:29 AM CDT Plan of Treatment Not on file Procedures Procedure Name Priority Date/Time Associated Diagnosis Comments HEPATITIS C ANTIBODY Routine 07/02/2010 12:13 PM CDT Screen for STD (sexually transmitted disease) HIV-1 DNA PCR QUALITATIVE Routine 07/02/2010 12:10 PM CDT Screen for STD (sexually transmitted disease) from Last 3 Months or Most Recently Relevant to Health Maintenance Results * HEPATITIS C ANTIBODY (07/02/2010 12:13 PM CDT) Pathologist [facility] Hepatitis C Antibody Screen Non-reactive Non-react janet [facility] Disclaimer HCV Nonreactive - Antibodies to HCV were not detected, result does not exclude early acute HCV infection. [facility] BLOOD SPECIMEN / Unknown 07/02/2010 12:13 PM CDT 07/02/2010 12:13 PM CDT Jailyn Self MD LAB - CHEMISTRY [place] Led[place] Organization Address City/State/ZIP Co de Phone Number [facility] [address] [place] [address] * HIV-1 DNA PCR QUALITATIVE (07/02/2010 12:10 PM CDT) Pathologist [facility] HIV-1 DNA By PCR Not Detected Not Detected [facility] Comment Ref Lab [facility] Comment: INTERPRETATION: HIV-1 DNA PCR, QUALITATIVE This test will be inactivated with the August 2010 Hot Line due to authorization representative's discontinuation of reagent. For sensitive and specific [...] test uses a kit designated by the authorization representative as for research use, not for clinical use. The performance characteristics of this test were validated by [email or web address] The U.S. Food and Drug Administration (FDA) has not approved or cleared this test. The results are not intended to be used as the sole means for clinical diagnosis or patient management decisions. [employer] is authorized under Clinical Laboratory Improvement Amendments (CLIA) and by all states to perform high-complexity testing. This assay should not be used for blood donor screening, associated re-entry protocols, or for screening Human Cell, Tissues and Cellular Tissue-Based Products (HCT/P). BLOOD SPECIMEN / Unknown 07/02/2010 12:10 PM CDT 07/02/2010 12:12 PM CDT Narrative [facility] - 07/05/2010 12:28 AM CDT 1 Resulting Agency Comment Performed By [email or web address] [address] [place] [phone] Jailyn Self MD LAB - SEROLOGY ORDER VIANCA [facility] [address] [place] [address] from Last 3 Months or Most Recently Relevant to Health Maintenance Care Teams High Tension Tester Relationship Specialty Start Date End Date Kelin Martinez MD [address] [place] [address] PCP - General 05/10/09
[2024-06-04 15:15] VITALS: BP 138/84; PULSE 98; RESP 16; TEMP 36.8; O2SAT 100
--- NOTE | 2024-06-04 15:26 | ED_ITS ---
HPI - Extremity Injury (Lower) General Chief Complaint: Extremity Injury, Lower Stated Complaint: right knee injury Time Seen by Provider: 06/04/24 16:38 Focused HPI: 33 y/o F presents to the ED for left knee pain x2 weeks. Patient states she was chronic S her bed 2 weeks ago when she felt a pop in her knee. Since then it hurts to flex or extend the knee. She notes a remote history of ACL and meniscus injury for which she underwent physical therapy but never underwent surgery. 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 GENERAL: Well-appearing, well-nourished, and in no acute distress. HEAD: Normocephalic, atraumatic. CHEST: Clear to auscultation. ?No respiratory distress. EXT: Tenderness along the medial joint line, full passive and active range of motion, no obvious deformity, DP pulse 2 +, sensation intact. HEART: Regular rate and rhythm.? NEURO: ?Alert and oriented x3. Patient screened in triage and initial orders placed.? ?Additional care and disposition to be based upon?diagnostic testing and treatment. Related Data Home Medications ?Medication ?Instructions ?Recorded ?Confirmed ?Last Taken ?Type prenat.vits,javier,flh-yxnt-snslv 1 tablet PO DAILY 05/02/23 05/02/23 04/26/23 08:00 History Allergies Allergy/AdvReac Type Severity Reaction Status Date / Time No Known Allergies Allergy Verified 04/29/23 14:35 Review of Systems Review of Systems: All systems reviewed & are unremarkable except as noted in HPI and below PMFSH Past Medical History Medical History delivery delivered IUP (intrauterine ), incidental Gestational diabetes Morbid obesity with BMI of 50.0-59.9, adult Healthy female adult 1 Surgical History Surgical History No history of previous surgery Family History Family History Mother Chronic obstructive pulmonary disease Sibling Hypertension Social History Social History Smoking status: Former smoker Tobacco type: cigarettes Smoking end date: 04/21/22 Substance use: never Do You Feel Safe in your Home?: Yes Lack of Transportation: No Lack of Food: Never True Current Housing: I Have Housing Concerned About Future Housing: No Difficulty Paying Gas/Electric Bills: No Difficulty Paying for Meds: No Currently Unemployed: No Education: High School Diploma/GED Difficulty w/ Childcare or Family Care: No Gender identity (if verbalized by the patient): Female Sexual Orientation (if Verbalized by the Patient): Straight or Heterosexual Spiritual care concerns: No Exam Narrative: GENERAL: Well-appearing, well-nourished, and in no acute distress. HEAD: Normocephalic, atraumatic. EYES: EOMI. ENT: Nares clear, no rhinorrhea or epistaxis. Mucous membranes moist. NECK: Supple. CHEST: Clear to auscultation. No respiratory distress. HEART: Regular rate and rhythm. No murmur heard. Normal peripheral pulses. EXTREMITIES: LLE: Edema to the left knee with no warmth or erythema, full active and passive range of motion, minimal tenderness to the medial joint line, no laxity with varus or valgus stress, negative anterior posterior drawer, negative Brionna's. DP pulse 2 +. Sensation intact. SKIN: Warm, dry, no rash. NEURO: No focal deficits. Alert and oriented x3 Course Vital Signs Vital signs: Vital Signs Temperature 98.2 F 06/04/24 15:15 Pulse Rate 98 06/04/24 15:15 Respiratory Rate 16 06/04/24 15:15 Blood Pressure 138/84 06/04/24 15:15 Pulse Oximetry 100 06/04/24 15:15 Temperature 97.6 F 06/04/24 16:59 Pulse Rate 76 06/04/24 16:59 Respiratory Rate 16 06/04/24 16:59 Blood Pressure 125/69 06/04/24 16:59 Pulse Oximetry 100 06/04/24 16:59 MDM - Extremity Injury (Lower) MDM Narrative Medical decision making narrative: 33-year-old female presents to the emergency department for left knee pain for 2 weeks. See HPI for further history. Vitals are stable. Exam is significant for the above. She is neurovascularly intact. X-ray shows a small left knee joint effusion. Exam is not consistent with septic arthritis. Patient was updated on results. Was going to place patient in a knee immobilizer however she declined and requesting an Russell wrap. A Zofran crutches provided. Discussed Tylenol/ibuprofen, rice, close follow-up with orthopedist. Return precautions discussed. She is agreeable with the plan verbalized understanding. Discharged in stable condition. Discharge Plan Discharge Clinical Impression: Left knee sprain Qualifiers: Encounter type: initial encounter Involved ligament of knee: unspecified ligament Qualified Code(s): S83.92XA - Sprain of unspecified site of left knee, initial encounter Patient Disposition: Home, Self-Care Condition: Stable Instructions: Antibiotic Form, Knee Sprain (DC) Additional Instructions: You were evaluated in the emergency department for knee pain. X-ray shows fluid on her knee joint called a effusion. This may be due to a ligament injury. Please rest, ice, elevate and keep her knee compressed. Follow-up with orthopedist. Take Tylenol and ibuprofen as needed for pain. Return to the emergency department if you develop new or worsening symptoms. Patient Language: Mohawk Prescriptions: No Action prenat.vits,javier,rul-rndn-zfwsu Tablet 1 tablet PO DAILY hydrocodone-acetaminophen 5-325 mg Tablet 1 tablet PO Q3H PRN (Reason: Moderate Pain (4-6)) Qty: 20 0RF ibuprofen 600 mg Tablet 600 mg PO Q6H PRN (Reason: Cramping) Qty: 30 0RF Follow-up/Referrals: Golden Ulloa MD [Physician] - PHYSICIAN,METAL BUILDING ASSEMBLER [Primary Care Provider] - Stand Alone Forms: Work/School Release IP
[2024-06-04 16:59] VITALS: BP 125/69; PULSE 76; RESP 16; TEMP 36.4; O2SAT 100
--- NOTE | 2024-06-04 16:59 | PC.NURSE ---
Patient reports it is uncomfortable to straighten leg for knee immobilizer. Refusing knee immobilizer application.
--- OUTSIDE RECORDS SUMMARY | 2024-06-04 17:07 | XMS_ITS | Clinical Summary ---
Author Organization [facility] [employer] Address [address] [place] [address] Care Team Providers Care Bessemer Regulator Name Role Phone Kelin Martinez MD Primary Care Provider [phone] Source Comments [facility],non-owned Affiliates and Associated Physician Practices is amultiple site organization consisting of ambulatory clinics and hospital sitesin [place], [place], [place] and [place]. This disclosure is being madepursuant to the Care Everywhere program and may not contain all information available regarding this patient. Last updated 18.[facility] [employer] Allergies No known active allergies Medications * [...] Hepatitis C Antibody Screen Non-reactive Non-react janet [facility] Disclaimer HCV Nonreactive - Antibodies to HCV were not detected, result does not exclude early acute HCV infection. [facility] BLOOD SPECIMEN / Unknown 07/02/2010 12:13 PM CDT 07/02/2010 12:13 PM CDT Jailyn Self MD LAB - CHEMISTRY [place] BRUNO [facility] [address] [place] [address] * HIV-1 DNA PCR QUALITATIVE (07/02/2010 12:10 PM CDT) Pathologist [facility] HIV-1 DNA By PCR Not Detected Not Detected [facility] Comment Ref Lab [facility] Comment: INTERPRETATION: HIV-1 DNA PCR, QUALITATIVE This test will be inactivated with the August 2010 Hot Line due to supervisor maple products's discontinuation of reagent. For sensitive and specific [...] test uses a kit designated by the supervisor maple products as for research use, not for clinical use. The performance characteristics of this test were validated by [employer], [employer]. The U.S. Food and Drug Administration (FDA) has not approved or cleared this test. The results are not intended to be used as the sole means for clinical diagnosis or patient management decisions. [employer] is authorized under Clinical Laboratory Improvement Amendments (CLIA) and by all states to perform high-complexity testing. This assay should not be used for blood donor screening, associated re-entry protocols, or for screening Human Cell, Tissues and Cellular Tissue-Based Products (HCT/P). BLOOD SPECIMEN / Unknown 07/02/2010 12:10 PM CDT 07/02/2010 12:12 PM CDT Narrative [facility] - 07/05/2010 12:28 AM CDT 1 Resulting Agency Comment Performed By [employer] [address] [place] [phone] Jailyn Self MD LAB - SEROLOGY ORDER VIANCA [facility] [address] [place] [address] from Last 3 Months or Most Recently Relevant to Health Maintenance Care Teams Bessemer Regulator Relationship Specialty Start Date End Date Kelin Martinez MD [address] [place] [address] PCP - General 05/10/09
--- OUTSIDE RECORDS SUMMARY | 2024-06-04 17:07 | XMS_ITS | Patient Health Summary ---
Author Organization [facility] Address [address] [place] [address] Care Team Providers Care Pm Technician Name Role Phone Kelin Martinez MD Primary Care Provider [phone] Note from [facility],non-owned Affiliates and Associated Physician Practices is amultiple site organization consisting of ambulatory clinics and hospital sitesin [place], [place], [place] and [place]. This disclosure is being madepursuant to the Care Everywhere program and may not contain all information available regarding this patient. Last updated 18.[facility] Allergies No known active allergies Medications * [...] trachomatis DNA NOT DETECTED NOT DETECTED [facility] Neisseria gonorrhoeae DNA SDA NOT DETECTED NOT DETECTED [facility] See Note SEE NOTE [facility] Comment: This test was performed using the [employer](TM) Chlamydia trachomatis and Neisseria gonorrhoeae Amplified DNA Assays. REPORT COMMENT: PREFERRED LAB:->[facility] Test Performed at: [facility] [id number] [place] [phone] JENNIE NELSON DO,MPH 07/01/2011 4:39 PM CDT 07/01/2011 4:40 PM CDT Narrative [facility] - 07/02/2011 2:00 PM CDT Preferred Lab:->[facility] Jailyn Self MD LAB - MICROBIOLOGY O RDERABLES [facility] * RPR (07/02/2010 12:13 PM CDT) RPR Non-Reacti ve Non Reactive [facility] BLOOD SPECIMEN / Unknown 07/02/2010 12:13 PM CDT 07/02/2010 12:13 PM CDT Narrative Resulting Agency Comment Performed By [facility] [address] [place] [address] Jailyn Self MD LAB - CHEMISTRY [place] BRUNO Performing Organization Address City/[facility]/ZIP Co de Phone Number [facility] [address] [place] [phone] * TESTOSTERONE FREE+TOT FEM/CHLD HYPOGNDL MALE (07/02/2010 12:13 PM CDT) Testosterone Female/Child 44 8 - 63 ng/dl [facility] Sex Hormone Binding Globulin 95 19 - 145 nmol/L [facility] Testosterone Free LC-MS 3.6 1.2 - 9.9 pg/ml [facility] Comment Ref Lab [facility] Comment: Total Testoterone: Patrick [...] PM CDT 07/02/2010 12:13 PM CDT Narrative [facility] - 07/05/2010 12:28 AM CDT 1 Resulting Agency Comment Performed By [employer] [address] [place] [phone] Jailyn Self MD LAB - CHEMISTRY [place] BRUNO Performing Organization Address City/[facility]/ZIP Co de Phone Number [facility] [address] [place] [address] * HEPATITIS B SURFACE ANTIGEN (07/02/2010 12:13 PM CDT) Hepatitis B Virus Surface Antigen Non-reacti ve Non-reacti ve [facility] BLOOD SPECIMEN / Unknown 07/02/2010 12:13 PM CDT 07/02/2010 12:13 PM CDT Jailyn Self MD LAB - CHEMISTRY [place] BRUNO Performing Organization Address [facility] Co de Phone Number [facility] [address] [place] [phone] * HEPATITIS C ANTIBODY (07/02/2010 12:13 PM CDT) Hepatitis C Antibody Screen Non-reactive Non-react janet [facility] Disclaimer HCV Nonreactive - Antibodies to HCV were not detected, result does not exclude early acute HCV infection. [facility] BLOOD SPECIMEN / Unknown 07/02/2010 12:13 PM CDT 07/02/2010 12:13 PM CDT Jailyn Self MD LAB - CHEMISTRY [place] BRUNO Performing Organization Address City/[facility]/ZIP Co de Phone Number [facility] [address] [place] [phone] * HIV-1 DNA PCR QUALITATIVE (07/02/2010 12:10 PM CDT) HIV-1 DNA By PCR Not Detected Not Detected [facility] Comment Ref Lab [facility] Comment: INTERPRETATION: HIV-1 DNA PCR, QUALITATIVE This test will be inactivated with the August 2010 Hot Line due to bellows charger assembler's discontinuation of reagent. For sensitive and specific [...] test uses a kit designated by the bellows charger assembler as for research use, not for clinical use. The performance characteristics of this test were validated by [employer] The U.S. Food and Drug Administration (FDA) has not approved or cleared this test. The results are not intended to be used as the sole means for clinical diagnosis or patient management decisions. [employer] is authorized under Clinical Laboratory Improvement Amendments (CLIA) and by all states to perform high-complexity testing. This assay should not be used for blood donor screening, associated re-entry protocols, or for screening Human Cell, Tissues and Cellular Tissue-Based Products (HCT/P). BLOOD SPECIMEN / Unknown 07/02/2010 12:10 PM CDT 07/02/2010 12:12 PM CDT Narrative [facility] - 07/05/2010 12:28 AM CDT 1 Resulting Agency Comment Performed By [employer] [address] [place] [phone] Jailyn Self MD LAB - SEROLOGY ORDER VIANCA [facility] [address] [place] [address] * XR KNEE 1 OR 2 VW LEFT (05/10/2009 5:02 PM EDUCATION TRAINER) Anatomical Region Laterality Modality Lower Extremity Other 05/10/2009 5:02 PM EDUCATION TRAINER Narrative 05/10/2009 5:33 PM EDUCATION TRAINER AP, LATERAL Normal. Reading RadiologistRafael BRIAN MD Releasing RadiologistRafael BRIAN MD Released Date Time- 05/10/091733 [facility] BRIAN MD MD MELISSA LAMA MD ORD- SCHIFF, TERESA B CON- PCP- AHMAD, SHAFIQUE SCP- Procedure Note Troy Brian MD - 05/10/2009 AP, LATERAL Normal. Reading Werner BRIAN MD Releasing Werner BRIAN MD Released Date Time- 05/10/091733 Jayesh BRIAN MD MD MELISSA LAMA MD ORD- SCHIFF, TERESA B CON- PCP- AHMAD, SHAFIQUE SCP- Kristan Valdes MD DIAGNOSTIC IMAGING O [facility] Care Teams Pm Technician Relationship Specialty Start Date End Date Kelin Martinez MD [address] [place] [address] PCP - General 05/10/09
--- OUTSIDE RECORDS SUMMARY | 2024-06-04 17:07 | XMS_ITS | Referral Summary ---
Author Organization [facility] Address [address] [place] [address] Care Team Providers Care Installer Technician Name Role Phone Kelin Martinez MD Primary Care Provider [phone] Source Comments [facility],non-owned Affiliates and Associated Physician Practices is amultiple site organization consisting of ambulatory clinics and hospital sitesin [place], [place], [place] and [place]. This disclosure is being madepursuant to the Care Everywhere program and may not contain all information available regarding this patient. Last updated 18.[facility] Allergies No known active allergies Medications * [...] C ANTIBODY (07/02/2010 12:13 PM CDT) Pathologist [facility] Hepatitis C Antibody Screen Non-reactive Non-react janet [facility] Disclaimer HCV Nonreactive - Antibodies to HCV were not detected, result does not exclude early acute HCV infection. [facility] BLOOD SPECIMEN / Unknown 07/02/2010 12:13 PM CDT 07/02/2010 12:13 PM CDT Jailyn Self MD LAB - CHEMISTRY [place] [facility] Organization Address City/State/ZIP Co de Phone Number [facility] [address] [place] [address] * HIV-1 DNA PCR QUALITATIVE (07/02/2010 12:10 PM CDT) Pathologist [facility] HIV-1 DNA By PCR Not Detected Not Detected [facility] Comment Ref Lab [facility] Comment: INTERPRETATION: HIV-1 DNA PCR, QUALITATIVE This test will be inactivated with the August 2010 Hot Line due to chief engineer's discontinuation of reagent. For sensitive and specific [...] test uses a kit designated by the chief engineer as for research use, not for clinical use. The performance characteristics of this test were validated by [employer] The U.S. Food and Drug Administration (FDA) has not approved or cleared this test. The results are not intended to be used as the sole means for clinical diagnosis or patient management decisions. [facility] is authorized under Clinical Laboratory Improvement Amendments (CLIA) and by all states to perform high-complexity testing. This assay should not be used for blood donor screening, associated re-entry protocols, or for screening Human Cell, Tissues and Cellular Tissue-Based Products (HCT/P). BLOOD SPECIMEN / Unknown 07/02/2010 12:10 PM CDT 07/02/2010 12:12 PM CDT Narrative [facility] - 07/05/2010 12:28 AM CDT 1 Resulting Agency Comment Performed By [employer] [address] [place] [phone] Jailyn Self MD LAB - SEROLOGY ORDER [facility] [address] [place] [address] from Last 3 Months or Most Recently Relevant to Health Maintenance Care Teams Installer Technician Relationship Specialty Start Date End Date Kelin Martinez MD [address] [place] [address] PCP - General 05/10/09
== END 2024-06-04 17:08 | disposition home or self-care (01) ==
LOC: ANHED 17:05
PROVIDERS: Emergency Provider Physician Assistant
DX: S83.92XA Sprain of unspecified site of left knee, initial encounter (principal); E66.01 Morbid (severe) obesity due to excess calories; Z68.41 Body mass index [BMI] 40.0-44.9, adult; Z87.891 Personal history of nicotine dependence; X58.XXXA Exposure to other specified factors, initial encounter
CPT/HCPCS: 73564; 99283

== ENCOUNTER 2024-07-10 09:31 | Outpatient (CLI) | payer MEDICAID, SELFPAY ==
--- NOTE | ~2024-07-10 | MR_ITS ---
EXAMINATION: MR knee LT wo con DATE: 07/10/2024 10:17 INDICATION: Left lower leg injury TECHNIQUE: Magnetic resonance imaging (MRI) of the left knee was performed without intravenous contra st. Sequences included coronal PD-weighted FSE, coronal PD-weighted FS FSE, sagittal T2-weighted FSE , sagittal PD-weighted FS FSE and axial PD weighted fat saturated FSE. COMPARISON: None. FINDINGS: Medial compartment: Complex medial meniscal tear which includes a laterally displaced bucket-handle flap which extends an teroposteriorly along the medial side of the intercondylar eminence. There is some shallow chondral u lceration with some chondral surface regularity along the lateral side of the anterior weightbearing medial femoral condyle. Additional partial-thickness chondral ulceration with smooth chondral surface at the central to anterior medial tibial plateau. Lateral compartment: Lateral meniscus is normal. Small region of shallow chondral ulceration at the junction of the anteri or to central weightbearing lateral femoral condyle. Patellofemoral compartment: Articular cartilage is normal. Ligaments and tendons: Posterior cruciate ligament is normal. An intact anterior cruciate ligament is not identified and is likely torn. The medial collateral ligament and fibular collateral ligament complex are normal. The e xtensor mechanism is normal. The visualized medial and lateral hamstring tendons as well as the iliot ibial band are normal. Fluid: Small left knee joint effusion. No loose osteochondral bodies identified. Osseous/other: Normal marrow signal. No fracture or pathologic marrow replacing process. IMPRESSION: 1. Complex medial meniscal tear including a laterally displaced bucket-handle flap. 2. 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 2. Anterior cruciate ligament tear. Reviewed, dictated and finalized at location B. IMPRESSION: 1. Complex medial meniscal tear including a laterally displaced bucket-handle f lap. 2. Mild osteoarthritis with small regions of moderate grade chondromalacia at t he medial and lateral compartments. 2. Anterior cruciate ligament tear.
--- OUTSIDE RECORDS SUMMARY | 2024-07-10 09:34 | XMS_ITS | Data Portability ---
Author Organization [facility] Sesser Address [address] [place] [address] Assessment Encounter Date Assessment Date Assessment LastModified by Organization Details LastModified Time 06/22/2024 06/22/2024 Annual gynecological exam performed. Patient will come back in a year unless there are new symptoms. [email or web address] Not available 06/22/2024 16:36:05 Plan of Treatment Reminders Order Date Submit Date Provider Last Modified By Organization Details Last Modified Time Details Appointments None recorded. Lab hbcab (hepatitis B core Ab) igm, serum 2024 025 [facility] (Lab), [address], [place], [address], 5 04:02:26 HBsAg (hepatitis B surface Ag), serum 2024 025 [facility] (Lab), [address] [place], [address], 5 04:02:26 hepatitis C virus Ab, serum 2024 025 [facility] (Lab), [address] [place], [address], 5 04:02:26 HIV 1+2 AB + HIV 1 p24 Ag, qualitative immunoassay , serum 2024 025 [facility] (Lab), [address], [place], [address], 5 04:02:26 RPR (rapid plasma reagin), serum 2024 025 [facility] (Lab), [address], [place], [address], 5 04:02:27 CMP, serum or plasma 2024 025 [facility] (Lab), [address], [place], [address], 5 04:02:24 CBC w/ auto diff 2024 025 [facility] (Lab), [address], [place], [address], 5 04:02:24 lipid panel, blood 2024 025 [facility] (Lab), [address], [place], [address], 5 04:02:25 HbA1c (hemoglobin A1c), blood 2024 025 [facility] (Lab), [address], [place], [address], 5 04:02:25 25-hydroxyv itamin D2 + 25-hydroxyv itamin D3, QN, serum or plasma 2024 025 [facility] (Lab), [address], [place], [address], 5 04:02:25 TSH, serum or plasma 2024 025 [facility] (Lab), [address], [place], [address], 5 04:02:25 Referral None recorded. Procedures None recorded. Surgeries None recorded. Imaging non-stress test 2023 024 [email or web address] Sesser, [address], [place], [address], 4 11:30:22 Medication Orders fluconazole 150 mg tablet 2024 025 BEATRIZ [id number], [address], [place], [place], [id number], 5 17:00:00 Procardia XL 30 mg tablet,exte nded release 2023 024 [facility] #[id number], [address], [place], [place], [id number], 16:44:17 Patient TargetsNo targets recorded. Patient InstructionsNo instructions recorded. Reason for Referral None Reported. Results Created Date Observation Date Name Description Value Unit Range Abnormal Flag Note LastModifiedBy Organization Detail LastModifiedTime 04/08/2004/08/2023 CULTU RE: GROUP B STREP SCREE N, REFLE X SUSCE PTIBI LITY result report SEE RESULT S BELOW Test: Cultu re: Group B Strep , Refle x Susce ptibi lity ([facility] ) Speci men Sourc e: Vagin a/Rec katie Speci men Type: Vagin al/Re ctal Speci men Date: 04/08 3:42 PM Resul t Date: 04/11 11:39 AM Resul t Statu s: Final resul t Abnor mal: No Resul ting Lab: [facility] [address] [facility] [address] Tel: CULTU RE ----- ----- ----- --- No Group B strep isola vandana at 2 days (wen ctive broth enhan cemen t) Not Available [facility] (Lab) [address] [facility] [address], [place], [address], 04/11/2023 12:44:08 06/23/1906/22/2024 IMAGE GUIDE D PAP AND HPV REGAR DLESS image guided Pap, HPV regardless of Pap result SEE RESULT S BELOW CASE REPOR T: Cytol ogy Gynec ologi heather Repor t Case: [id number] Autho shaun smith Provi whitney: Rosa Padron NP Colle cted: 06/22 1624 Order ing Locat ion: [place] [facility] Recei raheem: 06/23 1040 First Scree n: Amanda Chou ret, CT Speci men: Uriel rubio Pap - Image d, Cervi x STATE MENT OF ADEQU ACY: Satis facto ry for evalu ation Trans forma tion zone compo nent prese nt ----- ----- ----- ----- ----- ----- ----- ----- ----- ----- ----- ----- ----- ----- ----- ----- ----- ---- FINAL DIAGN OSIS: Negat janet for Intra epith elial Lesio n or Maricruz keen (NIL) . Funga l organ isms morph ologi letha consi stent with Jennifer da spp. Elect citlalli shafer d by DEVANTE Patterson ret on 025 at 1309 CASHIER CLERK ----- ----- ----- ----- ----- ----- ----- ----- ----- ----- ----- ----- ----- ----- ----- ----- ----- ---- HPV RESUL TS: HPV mRNA E6/E7 : No HPV mRNA Detec vandana NOTE: This high risk HPV mRNA assay detec ts fourt een high- risk HPV types (16, 18, 31, 33, 35, 39, 45, 51, 52, 56, 58, 59, 66, 68) witho ut diffe renti ation . COMME NT: This speci men was revie wed by a Cytot echno logis t and/o r Patho logis t (as indic ated in this repor t) after evalu ation using the Thinp rep Imagi ng Syste m. CLINI HEATHER INFOR MATIO N: Menst rual Statu s: LMP (if appli cable ): Clini heather Histo ry/Pr eviou s Pap: Type of Neopl robi (if appli cable ): Signi fican t Clini heather Findi ngs: Other Histo ry: Hormo charbel (if appli cable ): PAP EDUCA MAYUR L NOTE: The Pap Test is a scree ramiro test with an inher ent false negat janet rate. Liqui d-bas ed sampl ing may decre ase, but will not elimi jamarcus, false negat janet resul ts. A negat janet resul t does not precl ude the prese nce and/o r devel opmen t of disea se, since the prese nce of abnor mal cells in the sampl e depen ds on the locat ion of the lesio n and sampl ing techn ique. Etelvina nued regul ar scree ramiro is the best metho d of cance r preve ntion . If repor vandana cytol ogic findi ng do not corre late with physi heather and/o r histo rical findi ngs, furth er inves tigat ion is recom eliza d, as clini letha leary nted. Not Available [facility] (Lab) [address], [place], [address], 06/25/2024 14:13:11 06/23/19 25 06/22/2024 TRICH OMONA S VAGIN GURPREET (RRNA ) trichomonas vaginalis ribosomal RNA (rrna) Negati ve negati ve Not Available [facility] (Lab) [address], [place], [address], 06/25/2024 14:13:12 06/23/19 25 06/22/2024 CT/GC (MADIHA) , THINP REP VIAL chlamydia trachomatis, PCR Negati ve negati ve Not Available [facility] (Lab) [address], [place], [address], 06/25/2024 14:13:13 06/23/19 25 06/22/2024 CT/GC (MADIHA) , THINP REP VIAL neisseria gonorrhoeae, PCR Negati ve negati ve Not Available [facility] (Lab) [address], [place], [address], 06/25/2024 14:13:13 04/01/20 23 04/01/2023 US, obste tric, follo w-up No observ ation record ed. [facility] [address], [place], [address], 04/01/2023 17:50:06 04/01/20 23 04/01/2023 US, obste tric, bioph ysica l profi le + non-s tress test No observ ation record ed. [facility] [address], [place], [address], 04/01/2023 17:50:17 04/01/20 23 04/01/2023 US, obste tric, follo w-up No observ ation record ed. [email or web address] [address], [place], [address], 04/02/2023 12:14:55 04/01/20 non-s tress test No observ ation record ed. [email or web address] [facility] [address], [place], [address], 04/01/2023 16:08:22 04/01/20 23 04/01/2023 non-s tress test No observ ation record ed. [email or web address] [facility] [address], [place], [address], 04/01/2023 17:04:52 04/01/20 non-s tress test No observ ation record ed. [email or web address] [facility] [address], [place], [address], 04/01/2023 17:06:03 04/08/20 23 04/08/2023 non-s tress test No observ ation record ed. [email or web address] [facility] [address], [place], [address], 04/08/2023 10:26:06 04/08/20 23 04/08/2023 US, obste tric, bioph ysica l profi le + non-s tress test No observ ation record ed. [email or web address] [facility] [address], [place], [address], 04/08/2023 13:23:29 04/08/20 23 04/08/2023 US, obste tric, bioph ysica l profi le + non-s tress test No observ ation record ed. [email or web address] [address] [facility], [place], [address], 04/08/2023 13:49:40 04/15/20 23 04/15/2023 non-s tress test No observ ation record ed. [email or web address] [facility] [address], [place], [address], 04/15/2023 10:31:23 04/15/20 23 04/15/2023 US, obste tric, bioph ysica l profi le No observ ation record ed. [email or web address] [facility] [address], [place], [address], 04/15/2023 14:06:08 04/15/20 23 04/15/2023 US, obste tric, bioph ysica l profi le No observ ation record ed. [email or web address] [facility] [address], [place], [address], 04/15/2023 14:12:38 04/22/19 24 04/22/2023 non-s tress test No observ ation record ed. [email or web address] [facility] [address], [place], [address], 04/22/2023 10:54:01 04/22/19 24 04/22/2023 US, obste tric, bioph ysica l profi le + non-s tress test No observ ation record ed. [email or web address] [facility] [address], [place], [address], 04/22/2023 13:32:14 04/22/19 24 04/22/2023 US, obste tric, follo w-up No observ ation record ed. [email or web address] [address], [place], [address], 04/23/2023 10:57:32 04/29/19 24 04/29/2023 non-s tress test No observ ation record ed. [email or web address] [facility] [address], [place], [address], 04/29/2023 10:26:45 04/29/19 24 04/29/2023 US, obste tric, follo w-up No observ ation record ed. [email or web address] S[facility] [address], [place], [address], 04/29/2023 11:24:45 04/29/19 24 04/29/2023 US, obste tric, follo w-up No observ ation record ed. [email or web address] [address], [place], [address], 04/29/2023 17:49:04 Result Notes None recorded. Problems Name Problem SNOMED Code Status Onset Date Resolution Date Notes Provider Name and Address Organization Details Recorded Time Gestatio nal diabetes mellitus 04390436 Completed 12 units in AM and HS TYLOR Valverde - [facility] 0 16:22:01 Pregnanc y-induce d hyperten jesenia 58269298 Completed 37 wk delivery - 12:01am 11/21 Chuck Horner [facility] 0 16:22:01 Human papillom a virus infectio n 183481536 Completed Chuck Horner [facility] 0 16:22:01 Pregnanc y 02833592 Completed 201903/09/2020 Chuck Horner [facility], [facility] 4 14:20:16 Pregnanc y 21394281 Completed 202005/14/2021 Chuck Horner [facility] 4 14:20:16 Pregnanc y-induce d hyperten jesenia 76520867 Completed h/o GHTN, but not pre-ecla mpsia. Doesn't require antenata l testing. baseline PIH labs WNL Carola Ortizalessandroariel villagran [facility], [facility] 2 12:49:52 Deliveri es by [id number] Completed To repeat - 04/23/21- may need to be moved up due to uncontro lled DM Carola Ortizkellee sparkle [facility], [facility] 2 12:49:52 Localize d chest pain [id number] 9106 Completed Cardiolo gy - saw cards, CP resolved , FU with cards in May Carola Ortizkellee sparkle [facility], [facility] 2 12:49:52 Past pregnanc y history of gestatio nal diabetes mellitus 472377601 Completed Insulin controll ed - early 1 hr GTT - passed, await 28 wk test Bear Masters MD [address], [place], [address], [place] [facility] 1 10:53:03 Obesity 670891448 Completed BMI 44 - 34 wk weekly antenata l testing Carola villagran null, [facility] 2 12:49:52 Marginal insertio n of umbilica l cord 16819415 Completed Serial growth u/s Carola villagran null, [facility] 2 12:49:52 RhD negative 584981366 Completed Carola villagran null, [facility] 2 12:49:52 Gestatio nal diabetes mellitus 29521379 Completed INSULIN 20u @ HS, 4units before dinner 04/10, BS MELBA, Antenata l testing Carola villagran null, [facility] 2 12:49:52 RhD negative 985462207 Active Carola villagran null, [facility] 2 12:49:52 Gestatio nal diabetes mellitus 16047944 Completed 04/01/2023 INSULIN 20u @ HS, 4units before dinner 04/10, BS MELBA, Antenata l testing KACY TITUS MD [address], [place], [address], [facility] 3 21:55:41 Deliveri es by [id number] Active To repeat Chuck Horner null, [facility] 4 14:20:10 Obesity 678334605 Active 34 wk weekly antenata l testing Chuck Horner [facility], [facility] 4 14:20:10 Pregnanc y 45313509 Completed 202205/08/2023 Chuck Horner null, [facility] 4 14:20:16 Obesity 438071708 Completed 34 wk weekly antenata l testing Chuck Horner [facility] 4 14:20:10 Past pregnanc y history of gestatio nal diabetes mellitus 243066458 Completed historic al, x2, insulin dependen t Chuck Horner [facility] 4 14:20:10 Deliveri es by [id number] Completed To repeat Fredabannerramya Horner [facility] 4 14:20:10 Past pregnanc y history of gestatio nal hyperten jesenia 708159550 Completed Chuck Horner [facility] 4 14:20:10 Female steriliz ation Completed tubal at [facility] 4 14:20:10 Prophyla ctic immunoth erapy Completed rhogam 28wks - 02/27/23 Chuck Horner [facility] 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 4 14:20:10 Recurren t infectio us disease [id number] 05590 Completed yeast - prophyla ctic therapy after [facility] 4 14:20:10 Speciali zed medical examinat ion Completed 201409/21/2020 Other specifie d chlamydi al diseases ;Practic e ID: [id number] Miranda Farley [facility] 11:34:22 Venereal disease screenin g Completed 201409/21/2020 Screenin g examinat ion for venereal disease; Practice ID: [id number] Miranda Farley [facility] 11:34:24 Pregnanc y detectio n examinat ion Completed 201909/21/2020 Encounte r for pregnanc y test, result positive ;Practic e ID: [id number] Miranda weiner, [facility] 11:34:[address] Concept Completed 201909/21/2020 Maternal care for oth problems , first trimeste r, unsp;Pra ctice ID: [id number] Miranda weiner, [facility] 11:34:18 Gestatio n period, 9 weeks 853699 Completed 201909/21/2020 9 weeks gestatio n of pregnanc y;Practi ce ID: 0001 Miranda Farley [facility], [facility] 11:34:01 Antenata l screenin g Completed 201909/21/2020 Encounte r for antenata l screenin g for nuchal transluc ency;Pra ctice ID: 0001 Miranda weiner, [facility] 11:33:58 Pregnanc y, childbir th and puerperi um finding Completed 201909/21/2020 Encntr for suprvsn of normal first preg, second trimeste r;Practi ce ID: 0001 Miranda Collazotz [facility], [facility] 11:34:13 Normal pregnanc y in multigra della 0395661974 37431 Completed 201909/21/2020 Encounte r for suprvsn of normal pregnanc y, second trimeste r;Practi ce ID: 0001 Miranda weiner, [facility] 11:34:04 Pregnanc y test negative 586177980 Completed 201409/21/2020 Pregnanc y examinat ion or test, negative result;R ecorded Elsewher e: No [facility] S ource: EHR Production Team Leader rudi: N Practi ce ID: [id number] Laz lable Time: 03:00:00 PM Miranda weiner, [facility] 11:34:11 Screenin g for malignan t neoplasm of cervix Completed 201409/21/2020 Screenin g for malignan t neoplasm s of the cervix;R ecorded Elsewher e: No Locat ion: [facility] S ource: EHR Production Team Leader rudi: N Practi ce ID: [id number] Laz lable Time: 03:00:00 PM Miranda Farley regine, [facility] 11:34:15 Speciali zed medical examinat ion Completed 201409/21/2020 ROUTINE TRIAGE TECHNICIAN EXAMINAT ION;Mat rded Elsewher e: No Locat ion: [facility] S ource: EHR Production Team Leader rudi: N Practi ce ID: [id number] Laz lable Time: 03:00:00 PM Miranda Farley regine, [facility] 11:34:20 Morbid obesity 453309129 Completed 201409/21/2020 Obesity, Morbid;R ecorded Elsewher e: No Locat ion: [facility] S ource: EHR Production Team Leader rudi: N Practi ce ID: [id number] Laz lable Time: 03:00:00 PM Miranda Farley regine, [facility] 11:34:02 Adult health examinat ion Completed 201409/21/2020 ROUTINE MEDICAL EXAM;Rec orded Elsewher e: No Locat ion: [facility] S ource: EHR Production Team Leader rudi: N Practi ce ID: [id number] Laz lable Time: 03:00:00 PM Miranda Farley regine, [facility] 11:33:55 Obesity 050889459 Completed 201909/21/2020 Antenata l testing at 32 weeks Miranda Farley [facility] 1 11:34:05 Obesity 525980664 Completed 2019 Antenata l testing at 32 weeks Chuck Horner [facility] 0 16:22:01 Infectio n by Queta cookie [id number] Completed Tested + at outside facility MATEUSZ neg 10/10 Chuck Horner [facility] 0 16:22:01 Problem Notes None recorded. Procedures Surgical History Date Name Laterality Status Provider Name and Address Organization Details Recorded Time 4 SECTION (SURG) completed [facility] 05/07/2023 09:54:28 4 SECTION (SURG) completed [facility] 06/02/2023 11:49:29 3 Date of Last Pap Smear completed Ruchi Moss [facility] 06/22/2024 16:45:01 0 section completed Miranda Farley [facility] 09/20/2020 20:02:39 Caesarean Section completed Marianna Aguilera [facility] 09/20/2022 11:54:42 Imaging Results Imaging Date Name Status LastModified by Organiz ation Details LastModified Time 04/01/2023 US, obstetric, follow-up completed [facility] [address], [place], [address], 04/01/2023 17:50:06 04/01/2023 US, obstetric, biophysical profile + non-stress test completed [facility] [address], [place], [address], 04/01/2023 17:50:17 04/01/2023 US, obstetric, follow-up completed [email or web address] [address], [place], [address], 04/02/2023 12:14:55 04/01/2023 non-stress test completed [email or web address], [place], [address], 04/01/2023 16:08:22 04/01/2023 non-stress test completed [address], [place], [address], 04/01/2023 17:04:52 04/01/2023 non-stress test completed [email or web address] [address], [place], [address], 04/01/2023 17:06:03 04/08/2023 non-stress test completed [email or web address] [facility] [address], [place], [address], 04/08/2023 10:26:06 04/08/2023 US, obstetric, biophysical profile + non-stress test completed [email or web address] [facility] [address], [place], [address], 04/08/2023 13:23:29 04/08/2023 US, obstetric, biophysical profile + non-stress test completed [email or web address] [address], [place], [address], 04/08/2023 13:49:40 04/15/2023 non-stress test completed [email or web address] [facility] [address], [place], [address], 04/15/2023 10:31:23 04/15/2023 US, obstetric, biophysical profile completed [email or web address] [facility] [address], [place], [address], 04/15/2023 14:06:08 04/15/2023 US, obstetric, biophysical profile completed [email or web address] [facility] [address], [place], [address], 04/15/2023 14:12:38 04/22/2023 non-stress test completed [email or web address] [place] [address], [place], [address], 04/22/2023 10:54:01 04/22/2023 US, obstetric, biophysical profile + non-stress test completed [email or web address] [facility] [address], [place], [address], 04/22/2023 13:32:14 04/22/2023 US, obstetric, follow-up completed [email or web address] [address], [place], [address], 04/23/2023 10:57:32 04/29/2023 non-stress test completed [email or web address] [facility], [place], [address], 04/29/2023 10:26:45 04/29/2023 US, obstetric, follow-up completed [email or web address] [facility] [address], [place], [address], 04/29/2023 11:24:45 04/29/2023 US, obstetric, follow-up completed [email or web address] [address], [place], [address], 04/29/2023 17:49:04 Procedure Notes None recorded. Medical Equipment None Reported. Allergies No known drug allergies Medications Name Sig Start Date Stop Date Status Note LastModified by Organization Details LastModified Time nifedipin e ER 30 mg tablet,ex tended release 24 hr TAKE 1 TABLET BY MOUTH EVERY DAY 06/22 completed Not Available Not Available Not Available labetalol 200 mg tablet 04/30 completed Not Available Not Available Not Available fluconazo le 150 mg tablet TAKE 1 TABLET BY MOUTH NOW. REPEAT IN 72 HOURS NEEDED active Not Available Not Available No t Available hydrocodo ne 5 mg-acetam inophen 325 mg tablet TAKE 1 TABLET BY MOUTH EVERY 4 TO 5 HOURS NEEDED FOR MODERATE PAIN 06/22 completed Not Available Not Available Not Available Nystop 100,000 unit/gram topical powder APPLY EXTERNAL LY TO THE AFFECTED AREA TWICE DAILY 06/08 completed Not Available Not Available Not Available FreeStyle Lancets 28 gauge 04/30 completed Not Available Not Available Not Available Accu-Chek Softclix Lancets 04/30 completed Not Available Not Available Not Available metronida zole 500 mg tablet TAKE 1 TABLET BY MOUTH TWICE DAILY FOR 7 DAYS 06/22 completed Not Available Not Available Not Available sulfameth oxazole 800 mg-trimet hoprim 160 mg tablet Take 1 tablet every 12 hours by oral route for 7 days. 06/08 completed Not Available Not Available Not Available triamcino lone acetonide 0.1 % topical cream 04/30 completed Not Available Not Available Not Available amoxicill in 500 mg tablet TAKE 1 TABLET BY MOUTH TWICE DAILY FOR 10 DAYS 09/20 completed Not Available Not Available Not Available Macrobid 100 mg capsule 04/30 completed Not Available Not Available Not Available progester one 50 mg/mL intramusc ular oil 04/30 completed Not Available Not Available Not Available Microgest in FE 05/10 (28) 1 mg-20 mcg (21)/75 mg (7) tablet Take 1 tablet every day by oral route. 06/29 completed Not Available Not Available Not Available OneTouch Ultra Test strips TEST FOUR TIMES DAILY(FA STING AND BEFORE MEALS) 04/30 completed Not Available Not Available Not Available cephalexi n 500 mg capsule TAKE 1 CAPSULE BY MOUTH EVERY 6 HOURS FOR 7 DAYS 06/08 completed Not Available Not Available Not Available Humulin R Regular U-100 Insulin 100 unit/mL injection solution 04/30 completed Not Available Not Available Not Available nystatin 100,000 unit/gram topical cream 04/30 completed Not Available Not Available Not Available prednison e 50 mg tablet TAKE 1 TABLET BY MOUTH DAILY FOR 5 DAYS 09/20 completed Not Available Not Available Not Available Humulin N NPH U-100 Insulin (isophane susp) 100 unit/mL subcutane ous BEGIN TO INJECT 10 UNITS UNDER THE SKIN DAILY IN THE MORNING AND 10 UNITS IN THE EVENING 04/30 completed Not Available Not Available Not Available nystatin- triamcino lone 100,000 unit/g-0. 1 % topical cream 09/20 completed Not Available Not Available Not Available ibuprofen 600 mg tablet TAKE 1 TABLET BY MOUTH EVERY 6 HOURS NEEDED FOR CRAMPING 06/22 completed Not Available Not Available Not Available Vitamin D2 1,250 mcg (50,000 unit) capsule take 1 capsule by oral route every week 05/13 completed Prescrib yohana Wayne e: Ute Locat ion: [facility] reji By: billie raines DateTime : 09/21/19 03:34:48 PM Not Available Not Available Not Available insulin syringe U-100 with needle 0.3 mL 30 USE EVERY DAY WITH INSULIN 04/30 completed Not Available Not Available Not Available insulin syringe U-100 with needle 0.3 mL 29 gauge 04/30 completed Not Available Not Available Not Available Microgest in Fe 1.530 (28) 1.5 mg-30 mcg (21)/75 mg (7) tablet Take 1 tablet every day by oral route. 09/20 completed Not Available Not Available Not Available iron 04/30 completed Not Available Not Available Not Available 06/22 completed Not Available Not Available Not Available FreeStyle [place] Lite kit active Not Available Not Available Not Available Fioricet 50 mg-300 mg-40 mg capsule Take 1 capsule every 4 hours by oral route. 06/22 completed Not Available Not Available Not Available Durlaza 162.5 mg capsule,e xtended release 04/30 completed Not Available Not Available Not Available Swati 0.25 mg-0.035 mg tablet TAKE 1 TABLET BY MOUTH EVERY DAY 09/20 completed Not Available Not Available Not Available OneTouch Ultra2 Meter 04/30 completed Not Available Not Available Not Available OneTouch Delica Plus Lancet 33 gauge 04/30 completed Not Available Not Available Not Available Vitals Date Recorded Body height Body mass index (BMI) Systolic blood pressure Diastolic blood pressure Provider Name and Address Organization Details Last Updated DateTime 04/29/2023 154.94 cm 42.5 kg/m2 117 mm[Hg] 80 mm[Hg] Rosalba Jon [facility] 04/29/2023 10:29:58 Date Recorded Body weight Provider Name an d Address Organization Details Last Updated DateTime 04/29/2023 [id number] g Regina GOLDEN [address], [place], [address], [facility] 04/29/2023 11:20:54 Date Recorded Body height Body mass index (BMI) Body weight Systolic blood pressure Diastolic blood pressure Provider Name and Address Organization Details Last Updated DateTime 05/13/2023 154.94 cm 40.6 kg/m2 82381.36 g 153 mm[Hg] 93 mm[Hg] Mariannaeran Aguilera [facility] 4 15:36:43 Date Recorded Body height Body mass index (BMI) Body weight Systolic blood pressure Diastolic blood pressure Provider Name and Address Organization Details Last Updated DateTime 06/25/2023 154.94 cm 43.1 kg/m2 092799.7 8 g 131 mm[Hg] 81 mm[Hg] Yumiko Ambriz [facility] 4 15:26:18 Date Recorded Body height Body mass index (BMI) Body weight Systolic blood pressure Diastolic blood pressure Provider Name and Address Organization Details Last Updated DateTime 06/22/2024 154.94 cm 44.7 kg/m2 977318.9 5 g 136 mm[Hg] 80 mm[Hg] Ruchiiesha Torrezney [facility] 5 16:43:24 Social History Question Answer Notes LastModified by Organizat ion Details LastModified Time Tobacco Smoking Status Never Smoker Ruchi weiner, [facility] 05/13/2023 15:03:53 Do You Have An Advance Directive? No [email or web address] Information not available 09/21/2020 What Is Your Level Of Alcohol Consumption? None Information not available 12/13/2020 If You Are , What Was Your Level Of Alcohol Consumption Prior To ? None Information not available 05/13/2023 Are You Blind Or Do You Have Difficulty Seeing? No [email or web address] Information not available 09/21/2020 What Is Your Level Of Caffeine Consumption? Occasional Information not available 11/01/2022 How Much Tobacco Do You Chew? None Information not available 12/13/2020 In The 14 Days Before Symptom Onset, Have You Had Close Contact With A Laboratory-confir med COVID-19 While That Case Was Ill? No [email or web address] Information not available 09/21/2020 In The 14 Days Before Symptom Onset, Have You Had Close Contact With A Person Who Is Under Investigation For COVID-19 While That Person Was Ill? No [email or web address] Information not available 09/21/2020 Have You Been To An Area Known To Be High Risk For COVID-19? No [email or web address] Information not available 09/21/2020 Are You Deaf Or Do You Have Serious Difficulty Hearing? No [email or web address] Information not available 09/21/2020 What Type Of Diet Are You Following? REGULAR Information not available 12/13/2020 Which Illicit Or Recreational Drugs Have You Used? Marijuana [email or web address] Information not available 05/13/2023 What Is The Highest Grade Or Level Of School You Have Completed Or The Highest Degree You Have Received? NI10497-3 [email or web address] Information not available 09/21/2020 What Is Your Occupation? [employer] [email or web address] Information not available 09/21/2020 Are There Any Guns Present In Your Home? No [email or web address] Information not available 09/21/2020 Have You Ever Been Counseled For Unhealthy Alcohol Use? No [email or web address] Information not available 05/13/2023 Do You Use Protection During Sex? No [email or web address] Information not available 09/21/2020 Do You Use Your Seat Belt Or Car Seat Routinely? Yes [email or web address] Information not available 09/21/2020 Do You Have Smoke And Carbon Monoxide Detectors In Your Home? Yes [email or web address] Information not available 09/21/2020 How Much Tobacco Do You Smoke? No [email or web address] Information not available 09/21/2020 Do You Feel Stressed (tense, Restless, Nervous, Or Anxious, Or Unable To Sleep At Night)? [id number] [email or web address] Information not available 09/21/2020 Do You Use Any Illicit Or Recreational Drugs? Yes [email or web address] Information not available 09/21/2020 Do You Use Sunscreen Routinely? No Information not available 09/21/2020 Has Tobacco Cessation Counseling Been Provided? No [email or web address] Information not available 05/13/2023 Have You Used IV Drugs? No Information not available 09/21/2020 Do You Or Have You Ever Used Any Other Forms Of Tobacco Or Nicotine? No Information not available 05/13/2023 Sex: Unknown Functional Status Question Answer Note LastModified by Organizat ion Details LastModified Time Are you able to walk? YESWOREST [email or web address] Information not available 09/21/2020 What is your exercise level? Occasional [email or web address] Information not available 09/21/2020 Mental Status None recorded. Family History Relationship Description Onset Age of this Age Resolved Age Notes LastModified by Organization Details LastModified Time Paternal Grandmother Family history of blood coagulation disorder [email or web address] Not available 07/2024 16:31:20 Paternal Grandmother Family history of Thyroid disorder [email or web address] Not available 07/2024 16:31:20 Paternal Grandmother Pulmonary embolism [email or web address] Not available 07/2024 16:31:20 Mother Family history of malignant neoplasm of lung 51 [email or web address] Not available 07/2024 16:31:20 Mother Asthma [email or web address] Not available 09:14:23 Mother Mental disorder psychi atric diseas e [email or web address] Not available 08/04/2019 09:15:08 Mother Pulmonary embolism [email or web address] Not available 07/2024 16:31:20 Mother Malignant neoplasm of brain 51 [email or web address] Not available 07/2024 16:31:20 Mother Disorder of lung Not available 2022 11:54:29 Mother Anemia Not available 09/20/2022 11:54:29 Mother Malignant tumor of lung Not available 2022 11:54:29 Father Asthma [email or web address] Not available 09:16:00 Maternal Grandmother Congenital heart disease [email or web address] Not available 07/2024 16:31:20 Maternal Grandmother Mental disorder [email or web address] Not available 2019 09:16:36 Maternal Grandfather Diabetes mellitus [email or web address] Not available 2019 09:17:53 Maternal Grandfather Hypertensive disorder [email or web address] Not available 2019 09:18:08 Sister Polycystic ovary syndrome [email or web address] Not available 07/2024 16:31:20 Sister Pre-eclampsi a Not available 2020 15:14:23 Sister Mental disorder Not available 2022 11:54:29 Maternal Aunt Pre-eclampsi a Not available 2020 15:14:23 Medical History Condition Response Allergies (Food, seasonal, environmental ) N Other Y Drug/Latex Allergies/Reactions N Blood Transfusion N Breast Cancer N Dermatologic Disorders N Lung Disease N Defects or Inherited Disease N Breast Problem N Gestational Diabetes Y Hematologic disorders N Anesthesia Complications N History of STI Y Deep Vein Thrombosis N Polycystic ovary syndrome Y Anxiety Disorder N Autoimmune disease N Arthritis N Polyps N Infertility N Acid Reflux (GERD) N History of abnormal pap Y Cancer N Varicosities N Stroke N Neurologic/Epilepsy N Endometriosis N High Cholesterol Y Fibromyalgia N Headaches Y Kidney Disease N Heart Problems N Thyroid Problems N Kidney or Bladder Problems N GI Problems N Eating Disorder N Anemia N Art (IVF or FET) N Psychiatric Illness N Ovarian Cancer N Diabetes Y Pulmonary (TB, Asthma) N Hepatitis/Liver Disease N No Past Medical History N Eczema N Urinary Tract Infection N Abuse/Domestic Violence N Asthma Y Trauma/Violence N Depression/ depression N Heart Disease N Pre-Eclampsia N Hypertension Y Osteoporosis N Thrombophilias N Gynecological History Statement/Question Response Date of LMP 06/05/2024 N Was last menstrual period normal Y STIs/STDs Yes None Desired Control Method None Abnormal Pap Y On BCP's at Conception? N HPV Vaccine Y Duration of Flow (days) 5 Current Control Method Tubal Ligat ion Age at First Child 29 Are cycles usually normal Y Frequency of Cycle (Q days) 34 Sexually Active? Y Menses Monthly Y Age of first menstrual cycle 15 Date of Last Pap Smear 09/20/2022 Sexual Problems? N LMP Definite N 04/19/2019 Obstetrics History GPAL:G 5 P 3 0 2 3 Type Value Full Term 3 Spontaneous 2 Living 3 Total 5 Past Encounters Encounter ID Performer Location Encounter Start Date Encounter Closed Date Diagnosis/Indication Diagnosis SNOMED-CT Code Diagnosis ICD10 Code Diagnosis Note [id number] Queenie Park [facility] [address],[place] [address] 08/04/2019 11:46:01 08/05/2019 14:50:03 Routine care 389904245 Z34.92 Pt is 21 weeks. She had to cancel her first baseline and missed her appt yesterday d/t missing her alarm. Discussed importance of baseline anatomy. Pt will schedule next week. She does have some transporta tion issues. Resources given. Pt has recently (07-11) lost her mother to lung cancer and she also has custody of 4 nieces/nep hews. [id number] Bear Masters MD [facility] [address],[place] [address] 08/09/2019 12:07:11 08/09/2019 17:24:30 screening for malformation 215898841 Z36.3 [id number] Bear Masters MD [facility] [address],[place] [address] 10/11/2019 15:28:01 10/11/2019 17:46:48 Routine care 971415743 Z34.03 [id number] Nayely Blum [facility] [address],[place] [address] 10/11/2019 15:28:16 10/11/2019 17:16:35 screening 834739376 Z36.2 [id number] Carola Gotti [facility] [address],[place] [address] 10/18/2019 15:02:43 10/18/2019 15:49:24 Gestational diabetes mellitus class A1 50632550 O24.410 [id number] Bear Masters MD [facility] [address],[place] [address] 10/18/2019 15:03:49 10/18/2019 16:06:35 Vaginitis 51143670 N76.0 Routine an tenatal care 269126806 Z34.03 [id number] Queenie Park [facility] [address],[place] [address] 10/20/2019 14:54:17 10/20/2019 15:47:11 Gestational diabetes mellitus complicating 2152540297 9106 O24.419 GDM diet teaching. Discussed carb counting, meal planning, bs logging, and handout given. Discussed risks to of uncontroll ed GDM to mom and baby. RTC in 1 week to evaluate bs. testing scheduled. [id number] Carola Gotti [facility] [address],[place] [address] 10/21/2019 12:27:21 10/21/2019 14:29:54 Gestational diabetes mellitus class A1 91788217 O24.410 [id number] Bear Masters MD [facility] [address],[place] [address] 10/25/2019 10:58:50 10/25/2019 12:20:25 Routine care 782808689 Z34.03 [id number] Danialramya Siri [facility] [address],[place] [address] 10/25/2019 10:59:17 10/25/2019 12:14:51 Gestational diabetes mellitus class A1 62909313 O24.410 [id number] Carola Gotti [facility] [address],[place] [address] 10/28/2019 10:17:50 10/28/2019 13:22:38 Gestational diabetes mellitus class A1 84902291 O24.410 [id number] Carola Gotti [facility] [address],[place] [address] 11/01/2019 15:27:18 11/01/2019 16:21:30 Gestational diabetes mellitus class A1 59657495 O24.410 [id number] Bear Masters MD [facility] [address],[place] [address] 11/01/2019 15:27:37 11/01/2019 17:43:40 Routine care 144522107 Z34.03 [id number] Carola Gotti [facility] [address],[place] [address] 11/04/2019 11:28:31 11/04/2019 13:00:11 Gestational diabetes mellitus class A2 61800735 O24.414 [id number] [facility] [address],[place] [address] 11/04/2019 12:06:27 11/04/2019 13:00:45 condition affecting obstetrical care of mother 026462110 O36.8330 Z3A.34 [id number] [place] Ana María [facility] [address],[place] [address] 11/08/2019 16:04:32 11/08/2019 17:20:20 Gestational diabetes mellitus class A2 68104540 O24.414 [id number] [facility] [address],[place] [address] 11/08/2019 16:05:04 11/08/2019 17:59:13 Gestational diabetes mellitus class A1 60929959 O24.410 O99.213 Z3A.35 [id number] Queenie Park [facility] [address],[place] [address] 11/08/2019 16:05:18 11/08/2019 22:23:05 Routine care 788346655 Z34.92 [id number] Carola Gotti [facility] [address],[place] [address] 11/11/2019 11:38:31 11/11/2019 12:41:44 Gestational diabetes mellitus class A2 97746837 O24.414 [id number] Carola Gotti [facility] [address],[place] [address] 11/15/2019 10:34:03 11/15/2019 11:16:25 Gestational diabetes mellitus class A2 05909767 O24.414 [id number] Queenie Park [facility] [address],[place] [address] 11/15/2019 10:34:26 11/16/2019 14:27:44 Routine care 339904215 Z34.92 [id number] Carola Gotti [facility] [address],[place] [address] 11/18/2019 12:32:45 11/18/2019 13:47:57 Gestational diabetes mellitus class A2 66615715 O24.414 [id number] Bear Masters MD [facility] [address],[place] [address] 12/02/2019 12:05:47 12/02/2019 13:34:28 Candidiasis of skin 30700255 B37.2 This patient is a 40-year-ol d female who presents forpostopf ollow-up. She is 1 weekpostop from a delivery. Her incision is clean dry and intact. She has no complaints . Her bleeding is minimal. She denies any nausea, vomiting, fever, chills. She denies any chest pain or shortness of breath. Her baby is doing well. Her mood is good. Patient has erythema in the skin fold near the incision. The incision was clean dry and intact and is healing well. Patient has elevated blood pressures and worsening edema. She will be sent to Labor and delivery for a period of observatio n. She will be prescribed nystatin triamcinol one cream for the skin changes near the incision a underneath the pannus. I spent more than 25 minutes with the patient discussing her skin changes and her blood pressure concerns. [id number] Nayely [facility] [address],[place] [address] 09/21/2020 10:54:27 09/21/2020 11:28:17 screening 834026817 Z36.87 [id number] Ngoc Morris CNM [facility] [address],[place] [address] 09/21/2020 10:55:10 09/21/2020 11:54:11 Gynecologic examination 91317045 Z01.419 Amenorrhea 77588333 N91. 2 [id number] [facility] [address],[place] [address] 10/19/2020 14:56:43 10/19/2020 15:30:09 screening 850469134 Z36.82 [id number] Bear Masters MD [facility] [address],[place] [address] 10/19/2020 14:57:09 10/24/2020 14:41:55 Routine care 647052427 Z34.03 [id number] Lynn Yuan MD [facility] [address],[place] [address] 11/17/2020 15:33:38 11/18/2020 14:20:17 Routine care 705390823 Z34.82 Past pregn edmundo history of section 357582021 Z98.890 Past pregn edmundo history of gestational diabetes mellitus 014828735 Z86.32 [id number] Bear Masters MD [facility] [address],[place] [address] 12/13/2020 13:59:12 12/13/2020 16:55:42 screening for malformation 967894626 Z36.3 [id number] Bear Masters MD [facility] [address],[place] [address] 12/13/2020 13:59:12 12/13/2020 16:55:42 Routine care 640948822 Z34.03 [id number] Queenie Park [facility] [address],[place] [address] 01/09/2021 14:28:37 01/09/2021 17:26:35 Routine care 087517631 Z34.92 [id number] Nayely Blum [facility] [address],[place] [address] 01/09/2021 14:28:18 01/09/2021 15:44:19 screening 144622761 Z36.2 [id number] Shanice Escalona [facility] [address],[place] [address] 02/05/2021 13:52:36 02/05/2021 14:48:18 Marginal insertion of umbilical cord 94513443 O43.129 Z3A.27 [id number] Bear Masters MD [facility] [address],[place] [address] 02/05/2021 13:52:57 02/05/2021 16:12:16 Routine care 110018508 Z34.03 [id number] Yamileth Alvarez [facility] [address],[place] [address] 02/20/2021 09:24:47 02/20/2021 09:35:18 [id number] Queenie Tierneyrobert [facility] [address],[place] [address] 02/20/2021 09:25:04 02/21/2021 13:03:00 Routine care 996160475 Z34.92 [id number] [facility] [address],[place] [address] 02/20/2021 11:00:21 02/20/2021 12:10:06 Routine care 144561614 Z34.92 s ection following previous section 166782674 O34.219 [id number] [facility] [address],[place] [address] 03/08/2021 09:22:48 03/08/2021 10:29:42 Gestational diabetes mellitus class A2 85429959 O24.414 [id number] Nayely Blum [facility] [address],[place] [address] 03/08/2021 09:23:16 03/08/2021 11:47:05 AND/OR placental disorder affecting management of mother 43698161 O43.013 O36.8330 O13.3 Z3A.32 [id number] Bear Masters MD [facility] [address],[place] [address] 03/08/2021 09:23:51 03/08/2021 11:47:31 Gestational diabetes mellitus class A2 56410471 O24.414 [id number] [facility] [address],[place] [address] 03/13/2021 10:05:31 03/13/2021 11:20:25 Gestational diabetes mellitus class A2 57561858 O24.414 [id number] Bear Masters MD [facility] [address],[place] [address] 03/13/2021 10:05:51 03/13/2021 12:04:02 Gestational diabetes mellitus class A2 48503985 O24.414 [id number] Shanicefilippo Escalona [facility] [address],[place] [address] 03/13/2021 11:07:25 03/13/2021 11:49:51 condition affecting obstetrical care of mother 295378803 O36.8330 Z3A.32 [id number] [facility] [address],[place] [address] 03/20/2021 09:59:00 03/20/2021 12:06:49 Gestational diabetes mellitus class A2 22285616 O24.414 [id number] Taryn Maravilla [facility] [address],[place] [address] 03/23/2021 10:58:56 03/23/2021 12:25:44 Gestational diabetes mellitus class A2 33594041 O24.414 [id number] Lynn Yuan MD [facility] [address],[place] [address] 03/23/2021 10:59:13 03/23/2021 13:52:00 Deliveries by [id number] O82 Gestationa l diabetes mellitus 35216889 O24.419 Marginal i nsertion of umbilical cord 87916118 O43.129 Z3A.27 Obesity 103257766 E66.9 [id number] [facility] [address],[place] [address] 03/27/2021 09:28:46 03/27/2021 10:21:03 Gestational diabetes mellitus class A2 97069752 O24.414 [id number] Nayely [facility] [address],[place] [address] 03/27/2021 09:57:10 03/27/2021 11:08:54 condition affecting obstetrical care of mother 424550292 O36.8330 Z3A.34 [id number] Ngoc Morris [facility] [address],[place] [address] 03/30/2021 10:12:00 03/30/2021 11:52:55 [id number] [facility] [address],[place] [address] 03/30/2021 10:13:07 03/30/2021 11:14:12 Gestational diabetes mellitus class A2 10784846 O24.414 [id number] [facility] [address],[place] [address] 04/03/2021 09:21:02 04/03/2021 10:21:15 Gestational diabetes mellitus class A2 23221734 O24.414 [id number] [facility] [address],[place] [address] 04/06/2021 11:00:23 04/06/2021 12:06:08 Gestational diabetes mellitus class A2 85812930 O24.414 [id number] Shanice Escalona [facility] [address],[place] [address] 04/06/2021 11:00:43 04/06/2021 12:23:03 AND/OR placental disorder affecting management of mother 31001217 O43.129 O24.419 O99.210 Z3A.36 [id number] Lynn Yuan MD [facility] [address],[place] [address] 04/06/2021 11:01:13 04/06/2021 12:27:56 Deliveries by [id number] O82 Gestationa l diabetes mellitus 12191098 O24.419 Obesity 463088831 E66.9 [id number] Queenie Park [facility] [address],[place] [address] 04/10/2021 09:25:06 04/10/2021 10:57:36 Routine care 074503540 Z34.92 [id number] [facility] [address],[place] [address] 04/10/2021 09:24:52 04/10/2021 10:11:07 Gestational diabetes mellitus class A2 01339813 O24.414 [id number] [facility] [address],[place] [address] 04/10/2021 10:04:47 04/10/2021 10:35:21 condition affecting obstetrical care of mother 325491175 O36.8330 Z3A.36 [id number] [facility] [address],[place] [address] 04/17/2021 09:27:36 04/17/2021 10:00:43 Gestational diabetes mellitus class A2 13992564 O24.414 Z3A.37 [id number] [facility] [address],[place] [address] 04/17/2021 09:28:09 04/17/2021 11:01:04 Gestational diabetes mellitus class A2 97275231 O24.414 [id number] Lynn Yuan MD [facility] [address],[place] [address] 04/17/2021 09:28:34 04/17/2021 16:09:12 Deliveries by [id number] O82 Gestationa l diabetes mellitus 34260497 O24.419 [id number] Lynn Yuan MD [facility] [address],[place] [address] 04/24/2021 09:14:22 04/24/2021 09:15:54 [id number] Lynn Yuan MD [facility] [address] [place] [address] 04/30/2021 10:57:34 04/30/2021 11:31:18 Wound cellulitis 093535007 L03.90 Postoperative visit 1836 43034 Z09 [id number] MD Gissel [place] [address] [place] [address] 05/04/2021 12:25:16 05/04/2021 13:11:00 [id number] Lynn Yuan MD [facility] [address],[place] [address] 05/16/2021 14:09:36 05/16/2021 14:35:59 Candidiasis of skin 74370960 B37.2 [id number] Lynn Yuan MD [facility] [address],[place] [address] 06/08/2021 12:22:08 06/08/2021 13:09:03 care 579030676 Z39.2 Deliveries by [id number] O82 Gestationa l diabetes mellitus 87044163 O24.419 Past pregn edmundo history of gestational diabetes mellitus 744385740 Z86.32 Initial pr escription of oral contraception 857506086 Z30.011 [id number] Lynn Yuan MD [facility] [address],[place] [address] 10/08/2021 12:49:34 10/08/2021 13:29:18 Gynecologic examination 53803394 Z01.419 Venereal d isease screening 351360620 Z11.3 Initial pr escription of oral contraception 704484291 Z30.011 [id number] [facility] [address],[place] [address] 09/20/2022 10:45:17 09/20/2022 11:23:27 [id number] Bear Masters MD [facility] [address],[place] [address] 09/20/2022 10:45:44 09/20/2022 12:22:21 Amenorrhea 06603069 N91.2 this patient is a 31-year-ol d female, multiparou s, who presents for amenorrhea . She has a positive test. Ultrasound today reveals 6 week gestation. Who performed Pap smear. We talked about care. Talked about her history. She is given recommenda tions on diet, medication s, exercise. She is given recommenda tions on vaccinatio ns. She will begin routine care at her next visit. [id number] [facility] [address],[place] [address] 11/01/2022 10:59:31 11/01/2022 11:58:35 screening 079750101 Z36.82 [id number] Bear Masters MD [facility] [address],[place] [address] 11/01/2022 11:00:34 11/01/2022 12:45:42 Routine care 732780598 Z34.03 [id number] Bear Masters MD [facility] [address],[place] [address] 11/27/2022 13:44:28 11/27/2022 15:02:59 Routine care 741854432 Z34.03 [id number] [facility] [address],[place] [address] 12/26/2022 09:34:08 12/26/2022 10:58:30 screening for malformation 992755758 Z36.3 [id number] Bear Masters MD [facility] [address],[place] [address] 12/26/2022 09:34:34 12/26/2022 12:14:06 Routine care 679738663 Z34.03 [id number] Bear Masters MD [facility] [address] [address],[place] [address] 01/23/2023 09:49:59 01/23/2023 11:27:22 Routine care 116407853 Z34.03 [id number] [facility] [address],[place] [address] 01/23/2023 09:50:40 01/23/2023 12:12:31 screening 337040011 Z36.2 Z3A.24 [id number] Marianna Aguilera [facility] [address],[place] [address] 01/30/2023 13:58:53 01/30/2023 14:56:56 [id number] Bear Masters MD [facility] [address],[place] [address] 02/17/2023 09:28:03 02/17/2023 10:06:35 Headache 05133088 R51.9 Routine an tenatal care 038057513 Z34.03 [id number] [facility] [address],[place] [address] 02/27/2023 12:06:05 02/27/2023 13:25:21 Maternal obesity complicating , childbirth and the puerperium, antepartum 6905979683 07 O99.213 Z3A.29 [id number] Bear Masters MD [facility] [address],[place] [address] 02/27/2023 14:06:09 02/27/2023 15:21:50 Routine care 967255480 Z34.03 [id number] Bear Masters MD [facility] [address],[place] [address] 1 03/10/2023 09:42:59 03/10/2023 10:54:38 Routine care 748637603 Z34.03 [id number] Bear Masters MD [facility] [address],[place] [address] 03/25/2023 11:38:41 03/25/2023 12:21:27 Vaginitis 52741900 N76.0 Routine an tenatal care 199251517 Z34.03 [id number] [facility] [address],[place] [address] 04/01/2023 13:22:12 04/01/2023 14:52:12 Maternal obesity complicating , childbirth and the puerperium, antepartum 4866245564 07 O99.213 Z3A.34 [id number] Taryn Maravilal [facility] [address],[place] [address] 1 04/01/2023 14:42:33 04/02/2023 09:08:49 Gestational diabetes mellitus 74584084 O24.419 [id number] KACY TITUS MD [facility] [address],[place] [address] 1 04/01/2023 14:43:02 04/02/2023 09:06:18 Deliveries by [id number] O82 Obesity 243179086 E66.9 Gestation period, 34 weeks 28397498 Z3A.34 [id number] [facility] [address],[place] [address] 04/08/2023 09:46:49 04/08/2023 10:39:50 Maternal obesity complicating , childbirth and the puerperium, antepartum 5748368015 07 O99.213 [id number] Nayely Blum [facility] [address],[place] [address] 1 04/08/2023 09:47:08 04/08/2023 11:44:33 Maternal obesity complicating , childbirth and the puerperium, antepartum 3295267285 07 O99.213 Z3A.35 [id number] Bear Masters MD [facility] [address],[place] [address] 04/08/2023 09:47:27 04/08/2023 12:12:52 [id number] [facility] [address],[place] [address] 1 04/15/2023 09:50:14 04/15/2023 10:34:25 Maternal obesity complicating , childbirth and the puerperium, antepartum 5684761956 07 O99.213 [id number] Taryn Maravilla [facility] [address],[place] [address] 1 04/15/2023 09:50:45 04/15/2023 10:57:27 Maternal obesity complicating , childbirth and the puerperium, antepartum 3034078950 07 O99.213 Z3A.35 [id number] KACY TITUS MD [facility] [address],[place] [address] 1 04/15/2023 09:51:02 04/15/2023 11:08:58 Elevated blood-pressure reading without diagnosis of hypertension 675031731 R03.0 Gestation period, 36 weeks 19217124 Z3A.36 Deliveries by [id number] O82 Obesity 188603631 E66.9 [id number] [facility] [address],[place] [address] 04/22/2023 10:13:56 04/22/2023 11:11:18 Maternal obesity complicating , childbirth and the puerperium, antepartum 4810068312 07 O99.213 [id number] [facility] [address],[place] [address] 04/22/2023 10:15:46 04/22/2023 11:10:11 Maternal obesity complicating , childbirth and the puerperium, antepartum 2411239028 07 O99.213 Z3A.37 [id number] KACY TITUS MD [facility] [address],[place] [address] 1 04/22/2023 10:16:16 04/22/2023 11:10:49 Deliveries by [id number] O82 Obesity 385871197 E66.9 [id number] [facility] [address],[place] [address] 1 04/29/2023 09:45:11 04/29/2023 11:30:22 Maternal obesity complicating , childbirth and the puerperium, antepartum 0199219106 07 O99.213 [id number] [facility] [address],[place] [address] 04/29/2023 09:49:05 04/29/2023 11:31:02 Maternal obesity complicating , childbirth and the puerperium, antepartum 8404613941 07 O99.213 Z3A.38 [id number] KACY TITUS MD [facility] [address],[place] [address] 1 04/29/2023 09:49:27 04/29/2023 14:54:28 Deliveries by [id number] O82 Obesity 788775745 E66.9 Gestation period, 38 weeks 11069921 Z3A.38 [id number] Bear Masters MD [facility] [address],[place] [address] 05/06/2023 06:25:47 05/06/2023 06:29:27 [id number] Bear Masters MD [facility] [address],[place] [address] 05/13/2023 15:03:40 05/13/2023 16:12:36 -induced hypertension 39727893 O13.9 32-year-ol d female who presents for postop follow-up. She is 1 week postop from a delivery. Her blood pressures are elevated. We agreed to start Procardia. Her incision is clean dry and intact. She has no complaints of headache, blurred vision, epigastric pain. She has no sudden onset swelling of her extremitie s. She was given precaution s for low blood pressures. She will follow up in 3 weeks. She is unable to check her blood pressures at home. [id number] Bear Masters MD [facility] [address],[place] [address] 06/25/2023 15:10:45 06/25/2023 15:57:34 care 407001749 Z39.2 This patient is a 32-year-ol d female who presents for follow-up. Her mood is good. Her baby is doing well. Her baby is bottle feeding. She has not had sex. Her bleeding has resolved. She has had a tubal ligation or salpingect santiago. She will return in 2 months for well-woman exam. She has no complaints . [id number] SHANI Rich [facility] [address],[place] [address] 06/22/2024 16:30:01 06/23/2024 12:22:13 Gynecologic examination 47521301 Z01.419 WWEBC - BTLPap - done todaySTI screen - ordered per pt requestRou juliet labs - orderedRTC in 1 yr or sooner if needed It is strongly advised to have an annual flu shot and up can obtain at most pharmacies . If you have not had a TDap shot in the last 10 years you should obtain one as well. Discussed with patient & provided with informatio n regarding the HPV vaccine if applicable . Encourage safe sexual practices, to use condoms and limit partners if not already in a monogamous relationsh ip. Do monthly self breast exams. BRCA testing is now available for patients with strong genetic history of female cancer. If interested contact the office. Engage in regular exercise. Avoid tobacco and illicit drugs. This lifestyle behavior pattern will lead to less health conditions and longer life span. If BMI greater than 25 dietary consult advised. Questions answered. Vaginitis 26509757 N76.0 rx sent for yeast, r/b/a reviewedvu lvar care guidelines discussed Venereal d isease screening 928117117 Z11.3 Adult heal th examination 728250305 Z00.00 Sexually t ransmitted infectious disease 6919280 A64 Health Concerns Section Related Observation LastModified by Organization Detai ls LastModified Time None Recorded Concern Status LastModified by Organization Details LastModified Time None Recorded Advance Directives Directive N: Payers Encounter Date Sequence Insurance Name Policy Number Policy Azevedo Covered Member ID Azevedo Member ID Guarantor Name 04/29/2023 1 [facility] ON OR AFTER 10/19/20 (MEDICAID REPLACEMENT - HMO) Henrietta Bernardwood [id number] Henrietta Bernardwood 05/02/2023 1 [facility] ON OR AFTER 10/19/20 (MEDICAID REPLACEMENT - HMO) Henrietta Bernardwood [id number] Henrietta Bernardwood 05/13/2023 1 [facility] ON OR AFTER 10/19/20 (MEDICAID REPLACEMENT - HMO) Henrietta Han [id number] Henrietta Han 06/25/2023 1 *SELF PAY* [place] 06/22/2024 1 *SELF PAY* [place] Notes Date Note Type Note Provider Name and Address Organization Details Recorded Time 05/13/2023 text/html 32-year-old anant dewitt who presents for postop follow-up. She is 1 week postop from a delivery. Her blood pressures are elevated. We agreed to start Procardia. Her incision is clean dry and intact. She has no complaints of headache, blurred vision, epigastric pain. She has no sudden onset swelling of her extremities. She was given precautions for low blood pressures. She will follow up in 3 weeks. She is unable to check her blood pressures at home. Bear Masters MD [address], [place], [address], [facility] 05/13/2023 16:11:52 06/25/2023 text/html This patient is a 32-year-old female who presents for follow-up. Her mood is good. Her baby is doing well. Her baby is bottle feeding. She has not had sex. Her bleeding has resolved. She has had a tubal ligation or salpingectomy. She will return in 2 months for well-woman exam. She has no complaints. Bear Masters MD [address], [place], [address], [facility] 06/25/2023 15:46:44 06/22/2024 text/html Annual GYNReport ed bypatient.Menstrua l cycle:Normal menses Urinary symptoms:No hematuria; No incontinence Vulva:No genital lesion Vagina:Normal vaginal discharge;Vaginal itching Breast:No breast pain; No breast lump; No nipple discharge Current Contraception:Sati sfied with current contraception; Tubal ligation Sexual complaints:No sexual complaints; No pain during intercourse; Normal libido Menopausal Symptoms:No menopausal symptoms; Normal vaginal lubrication Psychological symptoms:No depression; No anxiety; No PMDD Preventive measures:Encourage self breast examination; Encourage regular exercise; Encourage no tobacco use; Encourage regular mammograms starting age 42Notes:33yo wweBC - BTLlast pap 2022 : nilmvaginal itching/dischargew ould like STI testing today SHANI Rich [address], [place], [address], [facility] 06/23/2024 11:32:51 OBGyn Episode Ob Episode Information Episode Created Date Number of Fetuses Patient Bloodtype Patient rh Status Prepregnancy Weight lbs Domestic Partner Domestic Partner Phone Father Name Yardage Control Clerk Status 08/04/19 20 1 O Negative 230 CLOSED Fetus Data First Name Last Name Admitted to NICU Weight (g) Sex Living Outcome Pediatric Complications Fetus ID Race Codes Race Delivery Type 3061.74 6 M true Full Term 448 Primary Problems Problem Notes Lower extremity edema observe for potential preeclampsia Problem Name Start Date End Date Resolution Snomed Code Not e Obesity 08/27/2019 646706909 testing at 32 weeks Gestational diabetes mellitus 72895850 12 units in AM and HS -induced hypertension 81040840 37 wk delivery - 12:01am 11/21 Human papilloma virus infection 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 [id number] Tested + at out side facility MATEUSZ neg 10/10 Donell Calculation Initial Donell Date Initial Exam Date Initial Exam Provider Initial Ultrasound Date Last Menstrual Period Date Ultra Sound Weeks Gestation 12/16/2019 08/04/2019 05/13/2019 02/26/2019 9 Eighteen To Twenty Week Donell Update Ultra Sound Date Fundal Height At Umbil Quickening Date Ultra Sound Latest Weeks Gestation Final Donell Confirmed By Final Donell Confirmed Date Final Donell Date Ultra Sound Latest Days Gestation 0 [email or web address] 08/04/2019 12/13/19 20 0 Pre-anson Flowsheet Flowsheet Date 08/04/2019 Viveros Score Blood Edema Fundus Height Fundus Units Glucose Ketones Leukocytes Nitrite Labor Signs Protein Cervic Dilation Cervic Effacement Cervic Station 21 trace Type Weight in lbs Pre/Post Dialysis Refused Weight 234.675686957910 BP Diastolic BP Location Tested BP Systolic BP Type 84 126 sitting Fetus Heart Rate Present A 150 Fetus Movement A Yes Comments Pt is 21 weeks. She had to c ancel her first baseline and missed her appt yesterday d/t missing her alarm. Discussed importance of baseline anatomy. Pt will schedule next week. She does have some transportation issues. Resources given. Pt has recently (07-11) lost her mother to lung cancer and she also has custody of 4 nieces/nephews. Flowsheet Date 08/09/2019 Viveros Score Blood Edema Fundus Height Fundus Units Glucose Ketones Leukocytes Nitrite Labor Signs Protein Cervic Dilation Cervic Effacement Cervic Station Type Weight in lbs Pre/Post Dialysis Refused BP Diastolic BP Location Tested BP Systolic BP Type Fetus Heart Rate Present Fetus Movement Comments Flowsheet Date 06/02/2019 Viveros Score Blood Edema Fundus Height Fundus Units Glucose Ketones Leukocytes Nitrite Labor Signs Protein Cervic Dilation Cervic Effacement Cervic Station trace trace Type Weight in lbs Pre/Post Dialysis Refused Weight 243.301711207998 BP Diastolic BP Location Tested BP Systolic BP Type 79 137 sitting Fetus Heart Rate Present A 162 Fetus Movement A No Comments The patient is a 28-year-old 1 para 0 at 12 weeks gestation who presents for initial care. She has been treated historically for Trichomonas. She is having the same symptoms. She has been tested. We will follow up on those results. Flowsheet Date 06/30/2019 Viveros Score Blood Edema Fundus Height Fundus Units Glucose Ketones Leukocytes Nitrite Labor Signs Protein Cervic Dilation Cervic Effacement Cervic Station none trace Type Weight in lbs Pre/Post Dialysis Refused Weight 237.217501409359 BP Diastolic BP Location Tested BP Systolic BP Type 75 118 sitting Fetus Heart Rate Present A 160 Fetus Movement A No Comments Pt is having a boy. Flowsheet Date 10/11/2019 Viveros Score Blood Edema Fundus Height Fundus Units Glucose Ketones Leukocytes Nitrite Labor Signs Protein Cervic Dilation Cervic Effacement Cervic Station Type Weight in lbs Pre/Post Dialysis Refused BP Diastolic BP Location Tested BP Systolic BP Type Fetus Heart Rate Present Fetus Movement Comments Flowsheet Date 10/11/2019 Viveros Score Blood Edema Fundus Height Fundus Units Glucose Ketones Leukocytes Nitrite Labor Signs Protein Cervic Dilation Cervic Effacement Cervic Station 32 trace Type Weight in lbs Pre/Post Dialysis Refused Weight 253.259536210249 BP Diastolic BP Location Tested BP Systolic BP Type 86 135 Fetus Heart Rate Present A 140 Fetus Movement A Yes Comments Patient has not been coming for care. She has had one previous visit. We again and 28-week labs and preeclampsia labs. There is a concern for preeclampsia later in the . She has edema now. Her blood pressures are mildly elevated normal Flowsheet Date 10/18/2019 Viveros Score Blood Edema Fundus Height Fundus Units Glucose Ketones Leukocytes Nitrite Labor Signs Protein Cervic Dilation Cervic Effacement Cervic Station Type Weight in lbs Pre/Post Dialysis Refused BP Diastolic BP Location Tested BP Systolic BP Type Fetus Heart Rate Present Fetus Movement Comments Flowsheet Date 10/18/2019 Viveros Score Blood Edema Fundus Height Fundus Units Glucose Ketones Leukocytes Nitrite Labor Signs Protein Cervic Dilation Cervic Effacement Cervic Station 32 Type Weight in lbs Pre/Post Dialysis Refused Weight 250.978061243293 BP Diastolic BP Location Tested BP Systolic BP Type 88 144 Fetus Heart Rate Present A 140 Fetus Movement A Yes Comments This patient is a 28-year-ol d 1 at 32 weeks who presents for follow-up care. She tested positive for gestational diabetes. She is getting diet teaching in 2 days. I gave instructions on how to use a glucometer and when to do the testing. Flowsheet Date 10/20/2019 Viveros Score Blood Edema Fundus Height Fundus Units Glucose Ketones Leukocytes Nitrite Labor Signs Protein Cervic Dilation Cervic Effacement Cervic Station 1+ Type Weight in lbs Pre/Post Dialysis Refused Weight 248.987264002331 BP Diastolic BP Location Tested BP Systolic BP Type 86 R arm 132 sitting Fetus Heart Rate Present Fetus Movement Comments Flowsheet Date 10/21/2019 Viveros Score Blood Edema Fundus Height Fundus Units Glucose Ketones Leukocytes Nitrite Labor Signs Protein Cervic Dilation Cervic Effacement Cervic Station Type Weight in lbs Pre/Post Dialysis Refused BP Diastolic BP Location Tested BP Systolic BP Type Fetus Heart Rate Present Fetus Movement Comments Flowsheet Date 10/25/2019 Viveros Score Blood Edema Fundus Height Fundus Units Glucose Ketones Leukocytes Nitrite Labor Signs Protein Cervic Dilation Cervic Effacement Cervic Station 33 Type Weight in lbs Pre/Post Dialysis Refused Weight 250.881548173239 BP Diastolic BP Location Tested BP Systolic BP Type 85 141 Fetus Heart Rate Present A 145 Fetus Movement A Yes Comments Mildly Elevated BP today, Dx - gestational HTN, Reasonable blood sugar control. Flowsheet Date 10/25/2019 Viveros Score Blood Edema Fundus Height Fundus Units Glucose Ketones Leukocytes Nitrite Labor Signs Protein Cervic Dilation Cervic Effacement Cervic Station Type Weight in lbs Pre/Post Dialysis Refused BP Diastolic BP Location Tested BP Systolic BP Type Fetus Heart Rate Present Fetus Movement Comments Flowsheet Date 10/28/2019 Viveros Score Blood Edema Fundus Height Fundus Units Glucose Ketones Leukocytes Nitrite Labor Signs Protein Cervic Dilation Cervic Effacement Cervic Station Type Weight in lbs Pre/Post Dialysis Refused BP Diastolic BP Location Tested BP Systolic BP Type Fetus Heart Rate Present Fetus Movement Comments Flowsheet Date 11/01/2019 Viveros Score Blood Edema Fundus Height Fundus Units Glucose Ketones Leukocytes Nitrite Labor Signs Protein Cervic Dilation Cervic Effacement Cervic Station Type Weight in lbs Pre/Post Dialysis Refused BP Diastolic BP Location Tested BP Systolic BP Type Fetus Heart Rate Present Fetus Movement Comments Flowsheet Date 11/01/2019 Viveros Score Blood Edema Fundus Height Fundus Units Glucose Ketones Leukocytes Nitrite Labor Signs Protein Cervic Dilation Cervic Effacement Cervic Station 35 trace Type Weight in lbs Pre/Post Dialysis Refused Weight 250.578393030308 BP Diastolic BP Location Tested BP Systolic BP Type 84 129 Fetus Heart Rate Present A 140 Fetus Movement A Yes Comments , to start insulin, 10 units of NPH in the evening and a.m. To call us or come in with blood sugars in 3 to 4 days. Flowsheet Date 11/04/2019 Viveros Score Blood Edema Fundus Height Fundus Units Glucose Ketones Leukocytes Nitrite Labor Signs Protein Cervic Dilation Cervic Effacement Cervic Station Type Weight in lbs Pre/Post Dialysis Refused BP Diastolic BP Location Tested BP Systolic BP Type Fetus Heart Rate Present Fetus Movement Comments Flowsheet Date 11/04/2019 Viveros Score Blood Edema Fundus Height Fundus Units Glucose Ketones Leukocytes Nitrite Labor Signs Protein Cervic Dilation Cervic Effacement Cervic Station Type Weight in lbs Pre/Post Dialysis Refused BP Diastolic BP Location Tested BP Systolic BP Type Fetus Heart Rate Present Fetus Movement Comments Flowsheet Date 11/08/2019 Viveros Score Blood Edema Fundus Height Fundus Units Glucose Ketones Leukocytes Nitrite Labor Signs Protein Cervic Dilation Cervic Effacement Cervic Station Type Weight in lbs Pre/Post Dialysis Refused BP Diastolic BP Location Tested BP Systolic BP Type Fetus Heart Rate Present Fetus Movement Comments Flowsheet Date 11/08/2019 Viveros Score Blood Edema Fundus Height Fundus Units Glucose Ketones Leukocytes Nitrite Labor Signs Protein Cervic Dilation Cervic Effacement Cervic Station Type Weight in lbs Pre/Post Dialysis Refused BP Diastolic BP Location Tested BP Systolic BP Type Fetus Heart Rate Present Fetus Movement Comments Flowsheet Date 11/08/2019 Viveros Score Blood Edema Fundus Height Fundus Units Glucose Ketones Leukocytes Nitrite Labor Signs Protein Cervic Dilation Cervic Effacement Cervic Station trace 36 neg Type Weight in lbs Pre/Post Dialysis Refused Weight 259.789999876603 BP Diastolic BP Location Tested BP Systolic BP Type 89 R arm 143 sitting Fetus Heart Rate Present A 143 Fetus Movement A Yes Comments PIH precautions discussed. N o symptoms. Pt has already been diagnosed with GHTN. Flowsheet Date 11/11/2019 Viveros Score Blood Edema Fundus Height Fundus Units Glucose Ketones Leukocytes Nitrite Labor Signs Protein Cervic Dilation Cervic Effacement Cervic Station Type Weight in lbs Pre/Post Dialysis Refused BP Diastolic BP Location Tested BP Systolic BP Type Fetus Heart Rate Present Fetus Movement Comments Flowsheet Date 11/15/2019 Viveros Score Blood Edema Fundus Height Fundus Units Glucose Ketones Leukocytes Nitrite Labor Signs Protein Cervic Dilation Cervic Effacement Cervic Station Type Weight in lbs Pre/Post Dialysis Refused BP Diastolic BP Location Tested BP Systolic BP Type Fetus Heart Rate Present Fetus Movement Comments Flowsheet Date 11/15/2019 Viveros Score Blood Edema Fundus Height Fundus Units Glucose Ketones Leukocytes Nitrite Labor Signs Protein Cervic Dilation Cervic Effacement Cervic Station 1+ 37 1+ Type Weight in lbs Pre/Post Dialysis Refused Weight 256.767692102966 BP Diastolic BP Location Tested BP Systolic BP Type 99 147 Fetus Heart Rate Present A 136 Fetus Movement A Yes Comments Cervix ft/50/-3. Discussed 3 7 week induction for ghtn. I have also discussed early delivery with gdm related to lung maturity. We have discussed all the risks and benefits and pt agrees to MIL @ 37 weeks. Will send in on Friday after midnight for cervidil. BS remain elevated. Reviewed with Dr Masters. Will increase insulin to 12/12. PIH precautions reinforced. Flowsheet Date 11/18/2019 Viveros Score Blood Edema Fundus Height Fundus Units Glucose Ketones Leukocytes Nitrite Labor Signs Protein Cervic Dilation Cervic Effacement Cervic Station Type Weight in lbs Pre/Post Dialysis Refused BP Diastolic BP Location Tested BP Systolic BP Type Fetus Heart Rate Present Fetus Movement Comments Flowsheet Date 12/02/2019 Viveros Score Blood Edema Fundus Height Fundus Units Glucose Ketones Leukocytes Nitrite Labor Signs Protein Cervic Dilation Cervic Effacement Cervic Station Type Weight in lbs Pre/Post Dialysis Refused Weight 252.007230429880 BP Diastolic BP Location Tested BP Systolic BP Type 104 159 100 150 Fetus Heart Rate Present Fetus Movement Comments Menstrual History Last Menstrual Date Menses Monthly On Bcp Conception Prior Menses Frequency Hcg Plus Date Menarche Onset Age 1102/26/2019 Genetic Screening And Infection History Question Response Note Mental Retardation/Autism false Patient's Age Will Be 35 Yea rs Or Older At Estimated Date of Delivery false Thalassemia (Malian, Tanzanian, Mediterranean, Or Background): MCV < 80 false Neural Tube Defect (Meningom yelocele, Spina Bifida, Or Anencephaly) false Congenital Heart Defect false Down Syndrome false Иван-Sachs (eg, Nondenominational, Cajun, Vietnamese-Martiniquais) f alse Ashlee Disease false Sickle Cell Disease Or Trait () false Hemophilia Or Other Blood Disorders false Muscular Dystrophy false Cystic Fibrosis false Union's Chorea false Intellectual Disability/Autism false If Yes, Was Person Tested For Fragile X? false Other Inherited Genetic Or Chromosomal Disorder false Maternal Metabolic Disorder (eg, Type 1 Diabetes , PKU) false Patient Or Baby's Father Had A Child With Defects Not Listed Above false Recurrent Loss, Or A Stillbirth false Medications (including Suppl ements, Vitamins, Herbs, OTC Drugs), Illicit/Recreational Drugs, Alcohol false If Yes, Agent(s) And Strength/Dosage false Any Other Genetic History false Live With Someone With TB Or Exposed To TB false Patient Or Partner Has History Of Genital Herpes false Rash Or Viral Illness Since Last Menstrual Perio d false History Of STD, Gonorrhea, Chlamydia, HPV, Syphi lis true Trich and HPV Other Infection History false History of HIV false History of Hepatitis false Prior GBS-infected child false Hemoglobinopathy Or Carrier false Other Structural Defect false Recent Travel History Outside of Country false Delivery Information Delivery Date Delivery Type Labor Anesthesia Weeks Gestation Incision Type Labor Labor Length Hrs Delivered By Post Complications Tubal Sterilization Discharge Date Comments 0 Induce d Regional-Ep idural 37.2 Low Transvers e false [id number] GHTN/GDM/ Obesity/P otential Pre-EArre st of Dilation/ Failure to Descend/N on-Reassu ring FHT's Discharge Information Feeding Method Contraceptive Method Maternal HG B and HCT Levels Ob Episode Information Episode Created Date Number of Fetuses Patient Bloodtype Patient rh Status Prepregnancy Weight lbs Domestic Partner Domestic Partner Phone Father Name Yardage Control Clerk Status 01/04/20 20 1 DELETED Donell Calculation Initial Donell Date Initial Exam Date Initial Exam Provider Initial Ultrasound Date Last Menstrual Period Date Ultra Sound Weeks Gestation 0 Eighteen To Twenty Week Donell Update Ultra Sound Date Fundal Height At Umbil Quickening Date Ultra Sound Latest Weeks Gestation Final Donell Confirmed By Final Donell Confirmed Date Final Donell Date Ultra Sound Latest Days Gestation 0 0 Menstrual History Last Menstrual Date Menses Monthly On Bcp Conception Prior Menses Frequency Hcg Plus Date Menarche Onset Age Delivery Information Delivery Date Delivery Type Labor Anesthesia Weeks Gestation Incision Type Labor Labor Length Hrs Delivered By Post Complications Tubal Sterilization Discharge Date Comments 0 37 +GBS,GHT N Discharge Information Feeding Method Contraceptive Method Maternal HG B and HCT Levels Ob Episode Information Episode Created Date Number of Fetuses Patient Bloodtype Patient rh Status Prepregnancy Weight lbs Domestic Partner Domestic Partner Phone Father Name Yardage Control Clerk Status 10/20/19 21 1 O Negative 242 CLOSED Fetus Data First Name Last Name Admitted to NICU Weight (g) Sex Living Outcome Pediatric Complications Fetus ID Race Codes Race Delivery Type Kaela george [phone] F true Full Term 02648 Repeat Problems Problem Notes CF/SMA negative 2019declines all vaccines Problem Name Start Date End Date Resolution Snomed Code Not e -induced hypertension [id number] h/o GHTN, but n ot pre-eclampsia. Doesn't require testing. baseline PIH labs WNL Deliveries by To repeat domenico michael - 04/23/21- may need to be moved up due to uncontrolled DM Localized chest pain [id number] Cardiology - saw cards, CP resolved, FU with cards in May Marginal insertion of umbilical cord [id number] Serial ciro wth u/s Obesity [id number] BMI 44 - 3 4 wk weekly testing Gestational diabetes mellitus [id number] INSULIN 20u @ H S, 4units before dinner 04/10, BS QID, testing RhD negative [id number] Donell Calculation Initial Donell Date Initial Exam Date Initial Exam Provider Initial Ultrasound Date Last Menstrual Period Date Ultra Sound Weeks Gestation 05/03/2021 10/19/2020 09/21/2020 07/21/2020 8 Eighteen To Twenty Week Donell Update Ultra Sound Date Fundal Height At Umbil Quickening Date Ultra Sound Latest Weeks Gestation Final Donell Confirmed By Final Donell Confirmed Date Final Donell Date Ultra Sound Latest Days Gestation 0 [email or web address] 11/20/2020 05/03/19 22 0 Pre- Flowsheet Flowsheet Date 10/19/2020 Viveros Score Blood Edema Fundus Height Fundus Units Glucose Ketones Leukocytes Nitrite Labor Signs Protein Cervic Dilation Cervic Effacement Cervic Station neg none 12 trace Type Weight in lbs Pre/Post Dialysis Refused Weight 235.093417263842 BP Diastolic BP Location Tested BP Systolic BP Type 83 138 Fetus Heart Rate Present A 161 Fetus Movement A No Comments This patient is a 29-year-ol d 2 para 1001 at 12 weeks and 3 days gestation who presents for initial care. Patient has a history of gestational hypertension and gestational diabetes. She was on insulin with her previous For the treatment of her diabetes. Her blood pressures and blood sugars were normal after the . We are obtaining hemoglobin A1c initially and will perform diabetes screening at 20 weeks. Patient has delivery would like to repeat . Patient has some localized chest pain. She needs cardiology consult. She denies any shortness of breath, nausea, vomiting, diaphoresis. No radiation of the pain. To begin routine care. Flowsheet Date 11/17/2020 Viveros Score Blood Edema Fundus Height Fundus Units Glucose Ketones Leukocytes Nitrite Labor Signs Protein Cervic Dilation Cervic Effacement Cervic Station trace none trace Type Weight in lbs Pre/Post Dialysis Refused Weight 233.189603459957 BP Diastolic BP Location Tested BP Systolic BP Type 84 136 Fetus Heart Rate Present A 150 Fetus Movement A Yes Comments Doing well. Declines AFP. An atomy next visit. Early GCT next visit for history of GDM. Flowsheet Date 12/13/2020 Viveros Score Blood Edema Fundus Height Fundus Units Glucose Ketones Leukocytes Nitrite Labor Signs Protein Cervic Dilation Cervic Effacement Cervic Station Type Weight in lbs Pre/Post Dialysis Refused BP Diastolic BP Location Tested BP Systolic BP Type Fetus Heart Rate Present Fetus Movement Comments Flowsheet Date 12/13/2020 Viveros Score Blood Edema Fundus Height Fundus Units Glucose Ketones Leukocytes Nitrite Labor Signs Protein Cervic Dilation Cervic Effacement Cervic Station 20 Type Weight in lbs Pre/Post Dialysis Refused Weight 234.405237390608 BP Diastolic BP Location Tested BP Systolic BP Type 77 R arm 122 sitting Fetus Heart Rate Present A 150 Fetus Movement Comments GERD - recommended prilosec. I hour GTT today Flowsheet Date 01/09/2021 Viveros Score Blood Edema Fundus Height Fundus Units Glucose Ketones Leukocytes Nitrite Labor Signs Protein Cervic Dilation Cervic Effacement Cervic Station Type Weight in lbs Pre/Post Dialysis Refused BP Diastolic BP Location Tested BP Systolic BP Type Fetus Heart Rate Present Fetus Movement Comments Flowsheet Date 01/09/2021 Viveros Score Blood Edema Fundus Height Fundus Units Glucose Ketones Leukocytes Nitrite Labor Signs Protein Cervic Dilation Cervic Effacement Cervic Station none trace Type Weight in lbs Pre/Post Dialysis Refused Weight 235.313123135722 BP Diastolic BP Location Tested BP Systolic BP Type 81 113 Fetus Heart Rate Present Fetus Movement A Yes Comments Doing well. Completed baseli ne anatomy today. Encouraged flu and covid vaccine. Informed of acog recommendation. Pt declines at this time. Flowsheet Date 02/05/2021 Viveros Score Blood Edema Fundus Height Fundus Units Glucose Ketones Leukocytes Nitrite Labor Signs Protein Cervic Dilation Cervic Effacement Cervic Station Type Weight in lbs Pre/Post Dialysis Refused BP Diastolic BP Location Tested BP Systolic BP Type Fetus Heart Rate Present Fetus Movement Comments Flowsheet Date 02/05/2021 Viveros Score Blood Edema Fundus Height Fundus Units Glucose Ketones Leukocytes Nitrite Labor Signs Protein Cervic Dilation Cervic Effacement Cervic Station 27 trace Type Weight in lbs Pre/Post Dialysis Refused Weight 232.09977381586 BP Diastolic BP Location Tested BP Systolic BP Type 85 R arm 122 sitting Fetus Heart Rate Present A 146 Fetus Movement A Yes Comments 28 week labs this week, RhoG AM, weight is well controlled this , given instructions on activity, normal growth today on ultrasound, normal fluid. Flowsheet Date 02/20/2021 Viveros Score Blood Edema Fundus Height Fundus Units Glucose Ketones Leukocytes Nitrite Labor Signs Protein Cervic Dilation Cervic Effacement Cervic Station Type Weight in lbs Pre/Post Dialysis Refused BP Diastolic BP Location Tested BP Systolic BP Type Fetus Heart Rate Present Fetus Movement Comments Flowsheet Date 02/20/2021 Viveros Score Blood Edema Fundus Height Fundus Units Glucose Ketones Leukocytes Nitrite Labor Signs Protein Cervic Dilation Cervic Effacement Cervic Station none 30 trace Type Weight in lbs Pre/Post Dialysis Refused Weight 233.238778373358 BP Diastolic BP Location Tested BP Systolic BP Type 84 137 Fetus Heart Rate Present A 148 Fetus Movement A Yes Comments Doing well. 3 hour gtt today . Recommended tdap, flu, and covid vaccines. Pt declines. Planning repeat c/s. Flowsheet Date 02/20/2021 Viveros Score Blood Edema Fundus Height Fundus Units Glucose Ketones Leukocytes Nitrite Labor Signs Protein Cervic Dilation Cervic Effacement Cervic Station Type Weight in lbs Pre/Post Dialysis Refused BP Diastolic BP Location Tested BP Systolic BP Type Fetus Heart Rate Present Fetus Movement Comments Flowsheet Date 03/08/2021 Viveros Score Blood Edema Fundus Height Fundus Units Glucose Ketones Leukocytes Nitrite Labor Signs Protein Cervic Dilation Cervic Effacement Cervic Station Type Weight in lbs Pre/Post Dialysis Refused BP Diastolic BP Location Tested BP Systolic BP Type Fetus Heart Rate Present Fetus Movement Comments Flowsheet Date 03/08/2021 Viveros Score Blood Edema Fundus Height Fundus Units Glucose Ketones Leukocytes Nitrite Labor Signs Protein Cervic Dilation Cervic Effacement Cervic Station Type Weight in lbs Pre/Post Dialysis Refused BP Diastolic BP Location Tested BP Systolic BP Type Fetus Heart Rate Present Fetus Movement Comments Flowsheet Date 03/08/2021 Viveros Score Blood Edema Fundus Height Fundus Units Glucose Ketones Leukocytes Nitrite Labor Signs Protein Cervic Dilation Cervic Effacement Cervic Station 32 Type Weight in lbs Pre/Post Dialysis Refused Weight 230.031330276431 BP Diastolic BP Location Tested BP Systolic BP Type 77 R arm 120 sitting Fetus Heart Rate Present A 145 Fetus Movement A Yes Comments Patient unable to afford meli d and is eating a limited number of meals each day. Limited blood sugar data. to keep insulin unchanged, to examine possible charitible options. Flowsheet Date 03/13/2021 Viveros Score Blood Edema Fundus Height Fundus Units Glucose Ketones Leukocytes Nitrite Labor Signs Protein Cervic Dilation Cervic Effacement Cervic Station Type Weight in lbs Pre/Post Dialysis Refused BP Diastolic BP Location Tested BP Systolic BP Type Fetus Heart Rate Present Fetus Movement Comments Flowsheet Date 03/13/2021 Viveros Score Blood Edema Fundus Height Fundus Units Glucose Ketones Leukocytes Nitrite Labor Signs Protein Cervic Dilation Cervic Effacement Cervic Station Type Weight in lbs Pre/Post Dialysis Refused BP Diastolic BP Location Tested BP Systolic BP Type Fetus Heart Rate Present Fetus Movement Comments Flowsheet Date 03/13/2021 Viveros Score Blood Edema Fundus Height Fundus Units Glucose Ketones Leukocytes Nitrite Labor Signs Protein Cervic Dilation Cervic Effacement Cervic Station 32 Type Weight in lbs Pre/Post Dialysis Refused Weight 231.803650794872 BP Diastolic BP Location Tested BP Systolic BP Type 82 R arm 124 sitting Fetus Heart Rate Present A 145 Fetus Movement Comments Increasing nighttime NPH to 20 units. Reassuring testing. spent 15 minutes with patient discussing diabetes care. Flowsheet Date 03/20/2021 Viveros Score Blood Edema Fundus Height Fundus Units Glucose Ketones Leukocytes Nitrite Labor Signs Protein Cervic Dilation Cervic Effacement Cervic Station Type Weight in lbs Pre/Post Dialysis Refused BP Diastolic BP Location Tested BP Systolic BP Type Fetus Heart Rate Present Fetus Movement Comments Flowsheet Date 03/23/2021 Viveros Score Blood Edema Fundus Height Fundus Units Glucose Ketones Leukocytes Nitrite Labor Signs Protein Cervic Dilation Cervic Effacement Cervic Station Type Weight in lbs Pre/Post Dialysis Refused BP Diastolic BP Location Tested BP Systolic BP Type Fetus Heart Rate Present Fetus Movement Comments Flowsheet Date 03/23/2021 Viveros Score Blood Edema Fundus Height Fundus Units Glucose Ketones Leukocytes Nitrite Labor Signs Protein Cervic Dilation Cervic Effacement Cervic Station neg none 36 trace Type Weight in lbs Pre/Post Dialysis Refused Weight 234.610965923748 BP Diastolic BP Location Tested BP Systolic BP Type 77 117 Fetus Heart Rate Present A 145 Fetus Movement A Yes Comments Doing fine. Sugars good- onl y 1 pp slightly elvated. Will keep NPH at 10am, 20 HS. NST reactive. BP wnl. Discussed repeat CS, consented, questions answered. Declines all vaccines. Flowsheet Date 03/27/2021 Viveros Score Blood Edema Fundus Height Fundus Units Glucose Ketones Leukocytes Nitrite Labor Signs Protein Cervic Dilation Cervic Effacement Cervic Station Type Weight in lbs Pre/Post Dialysis Refused BP Diastolic BP Location Tested BP Systolic BP Type Fetus Heart Rate Present Fetus Movement Comments Flowsheet Date 03/27/2021 Viveros Score Blood Edema Fundus Height Fundus Units Glucose Ketones Leukocytes Nitrite Labor Signs Protein Cervic Dilation Cervic Effacement Cervic Station Type Weight in lbs Pre/Post Dialysis Refused BP Diastolic BP Location Tested BP Systolic BP Type Fetus Heart Rate Present Fetus Movement Comments Flowsheet Date 03/30/2021 Viveros Score Blood Edema Fundus Height Fundus Units Glucose Ketones Leukocytes Nitrite Labor Signs Protein Cervic Dilation Cervic Effacement Cervic Station Type Weight in lbs Pre/Post Dialysis Refused BP Diastolic BP Location Tested BP Systolic BP Type Fetus Heart Rate Present Fetus Movement Comments Flowsheet Date 03/30/2021 Viveros Score Blood Edema Fundus Height Fundus Units Glucose Ketones Leukocytes Nitrite Labor Signs Protein Cervic Dilation Cervic Effacement Cervic Station neg none trace Type Weight in lbs Pre/Post Dialysis Refused Weight 235.945422989154 BP Diastolic BP Location Tested BP Systolic BP Type 74 123 Fetus Heart Rate Present Fetus Movement A Yes Comments 3 minute deceleration on NST sent to LD for monitoring and BPP Flowsheet Date 04/03/2021 Viveros Score Blood Edema Fundus Height Fundus Units Glucose Ketones Leukocytes Nitrite Labor Signs Protein Cervic Dilation Cervic Effacement Cervic Station Type Weight in lbs Pre/Post Dialysis Refused BP Diastolic BP Location Tested BP Systolic BP Type 81 R arm 119 sitting Fetus Heart Rate Present Fetus Movement Comments reviewed sugars- fastings mo stly ok. dinner all eelvated, many breakfasts also. pt states sometimes skipping am insulin because it wouldn't be 12 hours apart if she gets up too late. She will start taking it regularly and we will reeval on Friday. she also may need to be delivered sooner due to uncontrolled DM. Flowsheet Date 04/06/2021 Viveros Score Blood Edema Fundus Height Fundus Units Glucose Ketones Leukocytes Nitrite Labor Signs Protein Cervic Dilation Cervic Effacement Cervic Station Type Weight in lbs Pre/Post Dialysis Refused BP Diastolic BP Location Tested BP Systolic BP Type Fetus Heart Rate Present Fetus Movement Comments Flowsheet Date 04/06/2021 Viveros Score Blood Edema Fundus Height Fundus Units Glucose Ketones Leukocytes Nitrite Labor Signs Protein Cervic Dilation Cervic Effacement Cervic Station Type Weight in lbs Pre/Post Dialysis Refused BP Diastolic BP Location Tested BP Systolic BP Type Fetus Heart Rate Present Fetus Movement Comments Flowsheet Date 04/06/2021 Viveros Score Blood Edema Fundus Height Fundus Units Glucose Ketones Leukocytes Nitrite Labor Signs Protein Cervic Dilation Cervic Effacement Cervic Station neg trace none trace Type Weight in lbs Pre/Post Dialysis Refused Weight 235.192322641645 BP Diastolic BP Location Tested BP Systolic BP Type 84 143 Fetus Heart Rate Present A 140 Fetus Movement A Yes Comments Taking insulin 2x per day no w and sugars much better. ONly 1 fasting and one pp elevated in last 4 days. will continue to monitor. US today breech, already planning repeat CS. BP borderline. Denies MAYO/BV/EP. Will monitor, precautions given. GBS next week. Flowsheet Date 04/10/2021 Viveros Score Blood Edema Fundus Height Fundus Units Glucose Ketones Leukocytes Nitrite Labor Signs Protein Cervic Dilation Cervic Effacement Cervic Station Type Weight in lbs Pre/Post Dialysis Refused BP Diastolic BP Location Tested BP Systolic BP Type Fetus Heart Rate Present Fetus Movement Comments Flowsheet Date 04/10/2021 Viveros Score Blood Edema Fundus Height Fundus Units Glucose Ketones Leukocytes Nitrite Labor Signs Protein Cervic Dilation Cervic Effacement Cervic Station Type Weight in lbs Pre/Post Dialysis Refused BP Diastolic BP Location Tested BP Systolic BP Type Fetus Heart Rate Present Fetus Movement Comments Flowsheet Date 04/10/2021 Viveros Score Blood Edema Fundus Height Fundus Units Glucose Ketones Leukocytes Nitrite Labor Signs Protein Cervic Dilation Cervic Effacement Cervic Station trace none trace Type Weight in lbs Pre/Post Dialysis Refused Weight 234.302780961178 BP Diastolic BP Location Tested BP Systolic BP Type 75 132 Fetus Heart Rate Present Fetus Movement A Yes Comments Doing well. BS elevated. Rev iewed with Dr Yuan and she would like her to start 4u of regular prior to dinner. Pt informed. GBS collected. Flowsheet Date 04/17/2021 Viveros Score Blood Edema Fundus Height Fundus Units Glucose Ketones Leukocytes Nitrite Labor Signs Protein Cervic Dilation Cervic Effacement Cervic Station Type Weight in lbs Pre/Post Dialysis Refused BP Diastolic BP Location Tested BP Systolic BP Type Fetus Heart Rate Present Fetus Movement Comments Flowsheet Date 04/17/2021 Viveros Score Blood Edema Fundus Height Fundus Units Glucose Ketones Leukocytes Nitrite Labor Signs Protein Cervic Dilation Cervic Effacement Cervic Station Type Weight in lbs Pre/Post Dialysis Refused BP Diastolic BP Location Tested BP Systolic BP Type Fetus Heart Rate Present Fetus Movement Comments Flowsheet Date 04/17/2021 Viveros Score Blood Edema Fundus Height Fundus Units Glucose Ketones Leukocytes Nitrite Labor Signs Protein Cervic Dilation Cervic Effacement Cervic Station neg none none trace Type Weight in lbs Pre/Post Dialysis Refused Weight 235.900063367565 BP Diastolic BP Location Tested BP Systolic BP Type 78 121 Fetus Heart Rate Present A 140 Fetus Movement A Yes Comments Doing well overall. Baby pamela y active today. on NST 140 and reactive but with questionable spontaneous decel to 130- to L and D for extended monitoring. BPP is 8/8. Sugars- fasting ok. many dinners elevated, poor diet choices, will increase regular insulin at dinner to 6u. Delivery in 6 days. Flowsheet Date 04/23/2021 Viveros Score Blood Edema Fundus Height Fundus Units Glucose Ketones Leukocytes Nitrite Labor Signs Protein Cervic Dilation Cervic Effacement Cervic Station Type Weight in lbs Pre/Post Dialysis Refused BP Diastolic BP Location Tested BP Systolic BP Type Fetus Heart Rate Present Fetus Movement Comments Flowsheet Date 04/30/2021 Viveros Score Blood Edema Fundus Height Fundus Units Glucose Ketones Leukocytes Nitrite Labor Signs Protein Cervic Dilation Cervic Effacement Cervic Station Type Weight in lbs Pre/Post Dialysis Refused Weight 221.115146542065 BP Diastolic BP Location Tested BP Systolic BP Type 101 154 100 150 Fetus Heart Rate Present Fetus Movement Comments Flowsheet Date 05/04/2021 Viveros Score Blood Edema Fundus Height Fundus Units Glucose Ketones Leukocytes Nitrite Labor Signs Protein Cervic Dilation Cervic Effacement Cervic Station Type Weight in lbs Pre/Post Dialysis Refused BP Diastolic BP Location Tested BP Systolic BP Type 127 Fetus Heart Rate Present Fetus Movement Comments Menstrual History Last Menstrual Date Menses Monthly On Bcp Conception Prior Menses Frequency Hcg Plus Date Menarche Onset Age 0407/21/2020 Genetic Screening And Infection History Question Response Note Mental Retardation/Autism false Patient's Age Will Be 35 Years Or Older At Estim ated Date of Delivery false Thalassemia (Malian, Tanzanian, Mediterranean, Or Background): MCV < 80 false Neural Tube Defect (Meningomyelocele, Spina Bifi da, Or Anencephaly) false Congenital Heart Defect false Down Syndrome false Иван-Sachs (eg, Nondenominational, Cajun, Vietnamese-Martiniquais) f alse Ashlee Disease false Sickle Cell Disease Or Trait () false Hemophilia Or Other Blood Disorders false Muscular Dystrophy false Cystic Fibrosis false Xavi's Chorea false Intellectual Disability/Autism false If Yes, Was Person Tested For Fragile X? false Other Inherited Genetic Or Chromosomal Disorder false Maternal Metabolic Disorder (eg, Type 1 Diabetes , PKU) false Patient Or Baby's Father Had A Child With Defects Not Listed Above false Recurrent Loss, Or A Stillbirth false Medications (including Suppl ements, Vitamins, Herbs, OTC Drugs), Illicit/Recreational Drugs, Alcohol false If Yes, Agent(s) And Strength/Dosage false Any Other Genetic History false Live With Someone With TB Or Exposed To TB false Patient Or Partner Has History Of Genital Herpes false Rash Or Viral Illness Since Last Menstrual Perio d false History Of STD, Gonorrhea, Chlamydia, HPV, Syphi lis false Other Infection History false History of HIV false History of Hepatitis false Prior GBS-infected child false Hemoglobinopathy Or Carrier false Other Structural Defect false Recent Travel History Outside of Country false Delivery Information Delivery Date Delivery Type Labor Anesthesia Weeks Gestation Incision Type Labor Labor Length Hrs Delivered By Post Complications Tubal Sterilization Discharge Date Comments 2 None Regional-Sp inal 38.4 Low Transvers e false Lynn Yuan MD Previous , GDM Insulin, Maternal Obesity & Marginal cord Discharge Information Feeding Method Contraceptive Method Maternal HG B and HCT Levels Ob Episode Information Episode Created Date Number of Fetuses Patient Bloodtype Patient rh Status Prepregnancy Weight lbs Domestic Partner Domestic Partner Phone Father Name Yardage Control Clerk Status 06/29/19 23 1 CLOSED Fetus Data First Name Last Name Admitted to NICU Weight (g) Sex Living Outcome Pediatric Complications Fetus ID Race Codes Race Delivery Type , Spontane ous [id number] Donell Calculation Initial Donell Date Initial Exam Date Initial Exam Provider Initial Ultrasound Date Last Menstrual Period Date Ultra Sound Weeks Gestation 0 Eighteen To Twenty Week Donell Update Ultra Sound Date Fundal Height At Umbil Quickening Date Ultra Sound Latest Weeks Gestation Final Donell Confirmed By Final Donell Confirmed Date Final Donell Date Ultra Sound Latest Days Gestation 0 0 Menstrual History Last Menstrual Date Menses Monthly On Bcp Conception Prior Menses Frequency Hcg Plus Date Menarche Onset Age Delivery Information Delivery Date Delivery Type Labor Anesthesia Weeks Gestation Incision Type Labor Labor Length Hrs Delivered By Post Complications Tubal Sterilization Discharge Date Comments 3 Discharge Information Feeding Method Contraceptive Method Maternal HG B and HCT Levels Ob Episode Information Episode Created Date Number of Fetuses Patient Bloodtype Patient rh Status Prepregnancy Weight lbs Domestic Partner Domestic Partner Phone Father Name Yardage Control Clerk Status 11/02/19 23 1 O Negative 224 CLOSED Fetus Data First Name Last Name Admitted to NICU Weight (g) Sex Living Outcome Pediatric Complications Fetus ID Race Codes Race Delivery Type [phone] [id number] F true Full Term [id number] Repeat Problems Problem Notes failed 1hr/passed 3hr. *01/21 1 - NL 2hr gtt at 28wks. 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 Donell Calculation Initial Donell Date Initial Exam Date Initial Exam Provider Initial Ultrasound Date Last Menstrual Period Date Ultra Sound Weeks Gestation 05/09/2023 11/01/2022 09/20/2022 08/02/2022 6 Eighteen To Twenty Week Donell Update Ultra Sound Date Fundal Height At Umbil Quickening Date Ultra Sound Latest Weeks Gestation Final Donell Confirmed By Final Donell Confirmed Date Final Donell Date Ultra Sound Latest Days Gestation 0 [email or web address] 11/01/2022 05/09/19 24 0 Pre- Flowsheet Flowsheet Date 11/01/2022 Viveros Score Blood Edema Fundus Height Fundus Units Glucose Ketones Leukocytes Nitrite Labor Signs Protein Cervic Dilation Cervic Effacement Cervic Station 12 Type Weight in lbs Pre/Post Dialysis Refused Weight 218.179946577694 BP Diastolic BP Location Tested BP Systolic BP Type 83 R arm 133 sitting Fetus Heart Rate Present A 145 Fetus Movement Comments 31-year-old 3 para 2 002 at 13 weeks gestation who presents for initial care. She had gestational hypertension and gestational diabetes. She had a previous . To repeat , she has been infected with COVID but is not vaccinated. We she was given vaccine recommendations. We talked about care in detail. She will begin routine care. Flowsheet Date 11/27/2022 Viveros Score Blood Edema Fundus Height Fundus Units Glucose Ketones Leukocytes Nitrite Labor Signs Protein Cervic Dilation Cervic Effacement Cervic Station 16 none trace Type Weight in lbs Pre/Post Dialysis Refused Weight 217.429421298815 BP Diastolic BP Location Tested BP Systolic BP Type 80 R arm 130 sitting Fetus Heart Rate Present A 145 Fetus Movement Comments This patient is having troub le at work. The worked volume is too much. 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 to do early diabetes screen Flowsheet Date 12/26/2022 Viveros Score Blood Edema Fundus Height Fundus Units Glucose Ketones Leukocytes Nitrite Labor Signs Protein Cervic Dilation Cervic Effacement Cervic Station Type Weight in lbs Pre/Post Dialysis Refused BP Diastolic BP Location Tested BP Systolic BP Type Fetus Heart Rate Present Fetus Movement Comments Flowsheet Date 12/26/2022 Viveros Score Blood Edema Fundus Height Fundus Units Glucose Ketones Leukocytes Nitrite Labor Signs Protein Cervic Dilation Cervic Effacement Cervic Station 20 none trace Type Weight in lbs Pre/Post Dialysis Refused Weight 219.699179868997 BP Diastolic BP Location Tested BP Systolic BP Type 78 R arm 114 sitting Fetus Heart Rate Present A 145 Fetus Movement Comments No complaints, no problems, gestational hypertension history, gestational diabetes history, early gestational diabetes screening today, incomplete anatomy today, repeat in 4 weeks. Flowsheet Date 01/23/2023 Viveros Score Blood Edema Fundus Height Fundus Units Glucose Ketones Leukocytes Nitrite Labor Signs Protein Cervic Dilation Cervic Effacement Cervic Station Type Weight in lbs Pre/Post Dialysis Refused BP Diastolic BP Location Tested BP Systolic BP Type Fetus Heart Rate Present Fetus Movement Comments Flowsheet Date 01/23/2023 Viveros Score Blood Edema Fundus Height Fundus Units Glucose Ketones Leukocytes Nitrite Labor Signs Protein Cervic Dilation Cervic Effacement Cervic Station Type Weight in lbs Pre/Post Dialysis Refused Weight 219.430611649142 BP Diastolic BP Location Tested BP Systolic BP Type 88 R arm 142 sitting Fetus Heart Rate Present A 145 Fetus Movement A Yes Comments pt. reports blurry vision, H As and seeing spots. The symptoms resolved check blood pressures at home , they were normal. repeat blood pressures here. No need to start treatment this time. She will come in blood pressure check in week. She is going to get a blood pressure. Completed anatomy scan today. Flowsheet Date 01/30/2023 Viveros Score Blood Edema Fundus Height Fundus Units Glucose Ketones Leukocytes Nitrite Labor Signs Protein Cervic Dilation Cervic Effacement Cervic Station Type Weight in lbs Pre/Post Dialysis Refused BP Diastolic BP Location Tested BP Systolic BP Type 78 R arm 122 sitting Fetus Heart Rate Present Fetus Movement Comments Flowsheet Date 02/17/2023 Viveros Score Blood Edema Fundus Height Fundus Units Glucose Ketones Leukocytes Nitrite Labor Signs Protein Cervic Dilation Cervic Effacement Cervic Station 28 2+ trace Type Weight in lbs Pre/Post Dialysis Refused Weight 218.069833841775 BP Diastolic BP Location Tested BP Systolic BP Type 74 R arm 122 sitting Fetus Heart Rate Present A 154 Fetus Movement A Yes Comments HAs continue., no complaints , to do 3 hour gtt Flowsheet Date 02/27/2023 Viveros Score Blood Edema Fundus Height Fundus Units Glucose Ketones Leukocytes Nitrite Labor Signs Protein Cervic Dilation Cervic Effacement Cervic Station Type Weight in lbs Pre/Post Dialysis Refused BP Diastolic BP Location Tested BP Systolic BP Type Fetus Heart Rate Present Fetus Movement Comments Flowsheet Date 02/27/2023 Viveros Score Blood Edema Fundus Height Fundus Units Glucose Ketones Leukocytes Nitrite Labor Signs Protein Cervic Dilation Cervic Effacement Cervic Station 2+ trace Type Weight in lbs Pre/Post Dialysis Refused Weight 215.044733591885 BP Diastolic BP Location Tested BP Systolic BP Type 80 R arm 131 sitting Fetus Heart Rate Present Fetus Movement A Yes Comments Normal growth ultrasound, no rmal urine, no complaints, problems are stable Flowsheet Date 03/10/2023 Viveros Score Blood Edema Fundus Height Fundus Units Glucose Ketones Leukocytes Nitrite Labor Signs Protein Cervic Dilation Cervic Effacement Cervic Station 32 Type Weight in lbs Pre/Post Dialysis Refused Weight 218.223797790675 BP Diastolic BP Location Tested BP Systolic BP Type 74 R arm 125 sitting Fetus Heart Rate Present A 141 Fetus Movement Comments decreased movement, to get NST and possibly BPP, normal blood pressure, Flowsheet Date 03/25/2023 Viveros Score Blood Edema Fundus Height Fundus Units Glucose Ketones Leukocytes Nitrite Labor Signs Protein Cervic Dilation Cervic Effacement Cervic Station none trace Type Weight in lbs Pre/Post Dialysis Refused Weight 220.144379384617 BP Diastolic BP Location Tested BP Systolic BP Type 78 R arm 123 sitting Fetus Heart Rate Present A 145 Fetus Movement A Yes Comments reports pressure, cervix is closed on digital exam. Good movement, testing to start next week. , needs growth ultrasound Flowsheet Date 04/01/2023 Viveros Score Blood Edema Fundus Height Fundus Units Glucose Ketones Leukocytes Nitrite Labor Signs Protein Cervic Dilation Cervic Effacement Cervic Station Type Weight in lbs Pre/Post Dialysis Refused BP Diastolic BP Location Tested BP Systolic BP Type Fetus Heart Rate Present Fetus Movement Comments Flowsheet Date 04/01/2023 Viveros Score Blood Edema Fundus Height Fundus Units Glucose Ketones Leukocytes Nitrite Labor Signs Protein Cervic Dilation Cervic Effacement Cervic Station Type Weight in lbs Pre/Post Dialysis Refused BP Diastolic BP Location Tested BP Systolic BP Type Fetus Heart Rate Present Fetus Movement Comments Flowsheet Date 04/01/2023 Viveros Score Blood Edema Fundus Height Fundus Units Glucose Ketones Leukocytes Nitrite Labor Signs Protein Cervic Dilation Cervic Effacement Cervic Station Type Weight in lbs Pre/Post Dialysis Refused Weight 218.702651888434 BP Diastolic BP Location Tested BP Systolic BP Type 72 109 Fetus Heart Rate Present A 144 Fetus Movement A Yes Comments Good movement. Rare BH contractions. No bleeding or LOF. testing for obesity starting today, BPP 01/28. EFW 68%, yasir breech presentation. Planning RCS. Continue weekly testing. Flowsheet Date 04/08/2023 Viveros Score Blood Edema Fundus Height Fundus Units Glucose Ketones Leukocytes Nitrite Labor Signs Protein Cervic Dilation Cervic Effacement Cervic Station Type Weight in lbs Pre/Post Dialysis Refused BP Diastolic BP Location Tested BP Systolic BP Type Fetus Heart Rate Present Fetus Movement Comments Flowsheet Date 04/08/2023 Viveros Score Blood Edema Fundus Height Fundus Units Glucose Ketones Leukocytes Nitrite Labor Signs Protein Cervic Dilation Cervic Effacement Cervic Station Type Weight in lbs Pre/Post Dialysis Refused BP Diastolic BP Location Tested BP Systolic BP Type Fetus Heart Rate Present Fetus Movement Comments Flowsheet Date 04/08/2023 Viveros Score Blood Edema Fundus Height Fundus Units Glucose Ketones Leukocytes Nitrite Labor Signs Protein Cervic Dilation Cervic Effacement Cervic Station Type Weight in lbs Pre/Post Dialysis Refused Weight 225.775297461158 BP Diastolic BP Location Tested BP Systolic BP Type 75 R arm 116 sitting Fetus Heart Rate Present Fetus Movement A Yes Comments pt. reports episode of near syncope. given recommendations, has salpingectomy scheduled, good movement appreciated by the patient but BPP was only 6/8, with a reactive NST. Flowsheet Date 04/15/2023 Viveros Score Blood Edema Fundus Height Fundus Units Glucose Ketones Leukocytes Nitrite Labor Signs Protein Cervic Dilation Cervic Effacement Cervic Station Type Weight in lbs Pre/Post Dialysis Refused BP Diastolic BP Location Tested BP Systolic BP Type Fetus Heart Rate Present Fetus Movement Comments Flowsheet Date 04/15/2023 Viveros Score Blood Edema Fundus Height Fundus Units Glucose Ketones Leukocytes Nitrite Labor Signs Protein Cervic Dilation Cervic Effacement Cervic Station Type Weight in lbs Pre/Post Dialysis Refused BP Diastolic BP Location Tested BP Systolic BP Type Fetus Heart Rate Present Fetus Movement Comments Flowsheet Date 04/15/2023 Viveros Score Blood Edema Fundus Height Fundus Units Glucose Ketones Leukocytes Nitrite Labor Signs Protein Cervic Dilation Cervic Effacement Cervic Station Type Weight in lbs Pre/Post Dialysis Refused Weight 222.771612508281 BP Diastolic BP Location Tested BP Systolic BP Type 87 141 73 111 Fetus Heart Rate Present A 140 Fetus Movement A Yes Comments Doing well overall, some BH contractions. No LOF/VB. Good movement. BPP 8/8, transverse head maternal left. CS scheduled 05/02. WIll repeat BP today as elevated on arrival, however henry reports increased stress 2/2 grandmother passing away just before [place] and grandfather having surgery today. Flowsheet Date 04/22/2023 Viveros Score Blood Edema Fundus Height Fundus Units Glucose Ketones Leukocytes Nitrite Labor Signs Protein Cervic Dilation Cervic Effacement Cervic Station Type Weight in lbs Pre/Post Dialysis Refused BP Diastolic BP Location Tested BP Systolic BP Type Fetus Heart Rate Present Fetus Movement Comments Flowsheet Date 04/22/2023 Viveros Score Blood Edema Fundus Height Fundus Units Glucose Ketones Leukocytes Nitrite Labor Signs Protein Cervic Dilation Cervic Effacement Cervic Station Type Weight in lbs Pre/Post Dialysis Refused BP Diastolic BP Location Tested BP Systolic BP Type Fetus Heart Rate Present Fetus Movement Comments Flowsheet Date 04/22/2023 Viveros Score Blood Edema Fundus Height Fundus Units Glucose Ketones Leukocytes Nitrite Labor Signs Protein Cervic Dilation Cervic Effacement Cervic Station none none neg Type Weight in lbs Pre/Post Dialysis Refused Weight 225.460155006542 BP Diastolic BP Location Tested BP Systolic BP Type 81 128 Fetus Heart Rate Present Fetus Movement A Yes Comments Baby active, intermittent mi ld contractions, no VB/LOF. BPP 10/10. RTC 1 week. CS and tubal scheduled for 05/02 at noon. labor precautions discussed. Flowsheet Date 04/29/2023 Viveros Score Blood Edema Fundus Height Fundus Units Glucose Ketones Leukocytes Nitrite Labor Signs Protein Cervic Dilation Cervic Effacement Cervic Station Type Weight in lbs Pre/Post Dialysis Refused BP Diastolic BP Location Tested BP Systolic BP Type Fetus Heart Rate Present Fetus Movement Comments Flowsheet Date 04/29/2023 Viveros Score Blood Edema Fundus Height Fundus Units Glucose Ketones Leukocytes Nitrite Labor Signs Protein Cervic Dilation Cervic Effacement Cervic Station Type Weight in lbs Pre/Post Dialysis Refused BP Diastolic BP Location Tested BP Systolic BP Type Fetus Heart Rate Present Fetus Movement Comments Flowsheet Date 04/29/2023 Viveros Score Blood Edema Fundus Height Fundus Units Glucose Ketones Leukocytes Nitrite Labor Signs Protein Cervic Dilation Cervic Effacement Cervic Station Type Weight in lbs Pre/Post Dialysis Refused Weight 225.072470759753 BP Diastolic BP Location Tested BP Systolic BP Type 80 117 Fetus Heart Rate Present A 140 Fetus Movement A Yes Comments Good movement, irregul ar contractions. No VB or LOF. Grandfather this morning, patient doing ok overall. CS friday. BPP 01/28. Flowsheet Date 05/02/2023 Viveros Score Blood Edema Fundus Height Fundus Units Glucose Ketones Leukocytes Nitrite Labor Signs Protein Cervic Dilation Cervic Effacement Cervic Station Type Weight in lbs Pre/Post Dialysis Refused BP Diastolic BP Location Tested BP Systolic BP Type Fetus Heart Rate Present Fetus Movement Comments Menstrual History Last Menstrual Date Menses Monthly On Bcp Conception Prior Menses Frequency Hcg Plus Date Menarche Onset Age 0408/02/2022 Genetic Screening And Infection History Question Response Note Mental Retardation/Autism false Patient's Age Will Be 35 Years Or Older At Estim ated Date of Delivery false Thalassemia (Malian, Tanzanian, Mediterranean, Or Background): MCV < 80 false Neural Tube Defect (Meningomyelocele, Spina Bifi da, Or Anencephaly) false Congenital Heart Defect false Down Syndrome false Иван-Sachs (eg, Nondenominational, Cajun, Vietnamese-Martiniquais) f alse Ashlee Disease false Sickle Cell Disease Or Trait () false Hemophilia Or Other Blood Disorders false Muscular Dystrophy false Cystic Fibrosis false Xavi's Chorea false Intellectual Disability/Autism false If Yes, Was Person Tested For Fragile X? false Other Inherited Genetic Or Chromosomal Disorder false Maternal Metabolic Disorder (eg, Type 1 Diabetes , PKU) false Patient Or Baby's Father Had A Child With Defects Not Listed Above false Recurrent Loss, Or A Stillbirth false Medications (including Suppl ements, Vitamins, Herbs, OTC Drugs), Illicit/Recreational Drugs, Alcohol false If Yes, Agent(s) And Strength/Dosage false Any Other Genetic History false Live With Someone With TB Or Exposed To TB false Patient Or Partner Has History Of Genital Herpes false Rash Or Viral Illness Since Last Menstrual Perio d false History Of STD, Gonorrhea, Chlamydia, HPV, Syphi lis true trich Other Infection History false History of HIV false History of Hepatitis false Prior GBS-infected child false Hemoglobinopathy Or Carrier false Other Structural Defect false Recent Travel History Outside of Country false Delivery Information Delivery Date Delivery Type Labor Anesthesia Weeks Gestation Incision Type Labor Labor Length Hrs Delivered By Post Complications Tubal Sterilization Discharge Date Comments 4 None [facility] 39 Low Transvers e false Bear Masters MD Deliverie s by , Double renal pelvis,Fe male steriliza tion,Hist ory of gestation al diabetes mellitus, History of gestation al hypertens ion,Obesi ty,Prophy lactic immunothe rapy,Recu rrent infectiou s disease Discharge Information Feeding Method Contraceptive Method Maternal HG B and HCT Levels
--- OUTSIDE RECORDS SUMMARY | 2024-07-10 09:34 | XMS_ITS | Clinical Summary ---
Author Organization [facility] Address [address] [place] [address] Care Team Providers Care Art Objects Repairer Name Role Phone Kelin Martinez MD Primary Care Provider [phone] Source Comments [facility],non-owned Affiliates and Associated Physician Practices is amultiple site organization consisting of ambulatory clinics and hospital sitesin [place], [place], [place] and [place]. This disclosure is being madepursuant to the Care Everywhere program and may not contain all information available regarding this patient. Last updated 18.[facility] Allergies No known active allergies Medications * [...] to complete this topic MENINGOCOCCAL (Group B) VACC INE SHARED DECISION-MAKING Aged Out No longer eligibl e based on patient's age to complete this topic MENINGOCOCCAL GROUPS A/C/Y/W VACCINE Aged Out No longer eligible b ased on patient's age to complete this topic [...] Hepatitis C Antibody Screen Non-reactive Non-react janet [facility] Disclaimer HCV Nonreactive - Antibodies to HCV were not detected, result does not exclude early acute HCV infection. [facility] BLOOD SPECIMEN / Unknown 07/02/2010 12:13 PM CDT 07/02/2010 12:13 PM CDT Jailyn Self MD LAB - CHEMISTRY LILIE DAMION [facility] Organization Address City/State/ZIP Co de Phone Number [facility] [address] [place] [address] * HIV-1 DNA PCR QUALITATIVE (07/02/2010 12:10 PM CDT) Pathologist [facility] HIV-1 DNA By PCR Not Detected Not Detected [facility] Comment Ref Lab [facility] Comment: INTERPRETATION: HIV-1 DNA PCR, QUALITATIVE This test will be inactivated with the August 2010 Hot Line due to clinical staff anesthesiologist's discontinuation of reagent. For sensitive and specific [...] test uses a kit designated by the clinical staff anesthesiologist as for research use, not for clinical use. The performance characteristics of this test were validated by [facility] The U.S. Food and Drug Administration (FDA) has not approved or cleared this test. The results are not intended to be used as the sole means for clinical diagnosis or patient management decisions. [facility] is authorized under Clinical Laboratory Improvement Amendments (CLIA) and by all states to perform high-complexity testing. This assay should not be used for blood donor screening, associated re-entry protocols, or for screening Human Cell, Tissues and Cellular Tissue-Based Products (HCT/P). BLOOD SPECIMEN / Unknown 07/02/2010 12:10 PM CDT 07/02/2010 12:12 PM CDT Narrative [facility] - 07/05/2010 12:28 AM CDT 1 Resulting Agency Comment Performed By [facility] [address] [place], [place] [id number] Jailyn Self MD LAB - SEROLOGY ORDER VIANCA [facility] [address] [place] [address] from Last 3 Months or Most Recently Relevant to Health Maintenance Care Teams Art Objects Repairer Relationship Specialty Start Date End Date Kelin Martinez MD [address] [place] [address] PCP - General 05/10/09
== END 2024-07-10 09:32 | disposition home or self-care (01) ==
PROVIDERS: Visit Provider Orthopaedic Surgery
DX: S89.92XA Unspecified injury of left lower leg, initial encounter (principal); S83.232A Complex tear of medial meniscus, current injury, left knee, initial encounter; M94.262 Chondromalacia, left knee; S83.512A Sprain of anterior cruciate ligament of left knee, initial encounter
CPT/HCPCS: 73721

== ENCOUNTER 2024-08-11 00:48 | Day surgery (SDC) | payer MEDICAID, SELFPAY ==
[2024-08-02 14:36] VITALS: BMI 44.4
--- NOTE | 2024-08-02 14:37 | PC.NURSE ---
Report to the Outpatient Waiting Room, entrance under the green pavilion located off [facility], at time ___30____ on date ___08/11/2024____. Planned Procedure Time: ___1030 .? Time changes happen often and if your time is changed the preop area will call you the afternoon before. - You and your visitor will be asked to self-screen and do not enter if you have any COVID symptoms. Please call surgeon if you need to reschedule. - A mask is optional within the hospital at this time. Patients may have clear liquids (water, carbonated beverages, clear teas, apple juice) until 3 hours prior to surgery with a maximum of 20 ounces. - No food from midnight until time of surgery and no smoking, or chewing tobacco (or any form of nicotine). No chewing gum, candy or mints. Take only the following medications with a SIP of water on the morning of surgery: DO NOT STOP ANY OF YOUR OTHER PRESCRIPTION MEDICATIONS PRIOR TO SURGERY EXCEPT THE FOLLOWING Hold all vitamins and supplements for 3 days per anesthesiologist. Medications to discontinue per physician Date to take last dose Please no make-up, nail macanese, hairspray, perfume, deodorant, or body powder the day of surgery.? No jewelry (including any body piercings) or valuables the day of surgery, leave them at home.? Please take a shower or bath the night before, or the morning of, surgery with an antibacterial soap.? Wear comfortable, loose fitting clothing.? Children are encouraged to wear pajamas. - Jewelry must be removed prior to entering the operating room.? Rings and piercings that are not removed may be cut off. - The hospital will not accept responsibility for valuables.? - Please leave all valuables, including medications, at home the day of surgery. If you are going home after surgery, a licensed emergency medical technician/driver must drive you home.? - NO public transportation without another adult if you receive anesthesia. - We recommend that an adult stay with you for 24 hours following discharge. - We also recommend that you do not drive, make important decision, drink alcoholic beverages, or take any drugs that were not prescribed by your health care provider for at least 24 hours after your discharge time. Follow any additional instructions given to you from your surgeon. Telephone instructions given to ____Melissa and asked if any additional questions and then verbalized understanding. Patient advised to call surgeon office or pre surgery nurse liaison [phone] if any additional questions.
--- NOTE | 2024-08-10 14:55 | WPDANESEPPF ---
Anes - Initial Pre Proc Eval Procedure: Operation Date: 08/11/24 10:30 Proposed Procedures p Left Knee Arthroscopy with Anterior Cruciate Ligament Reconstruction - Golden Ulloa MD Date/Time: 08/10/24 14:55 Surgeon: Golden Ulloa MD Pre Op Diagnosis: left knee medial meniscal tear, ACL rupture Patient Data Age: 33 Gender: F Height: 1.55 m Weight: 106.8 kg Allergies Allergy/AdvReac Type Severity Reaction Status Date / Time No Known Allergies Allergy Verified 08/11/24 09:53 Home Medications ?Medication ?Instructions ?Recorded ?Confirmed ?Type chlorhexidine gluconate 4 % 1 applic topical DAILY #237 mL 08/04/24 Rx topical liquid (Hibiclens) Patient hx anesthesia problems: none Family hx anesthesia problems: none Results Review: All pre-operative results and documents have been reviewed as part of the pre-operative evaluation. [facility] Past Medical History Medical History delivery delivered IUP (intrauterine ), incidental Gestational diabetes Morbid obesity with BMI of 50.0-59.9, adult Healthy female adult 1 Surgical History Surgical History History of delivery 2019, 2021, 2023 Family History Family History Mother Chronic obstructive pulmonary disease Depression Cancer Sibling Hypertension Thyroid disorder Father Hypertension Heart disease Grandparent Diabetes mellitus Social History Social History Years smoked: 3 Smoking status: Current every day smoker Tobacco type: cigarettes Alcohol intake: never Substance use: current Substance use type: marijuana Other substance usage details: 10 years marijuana smoking Do You Feel Safe in your Home?: Yes Lack of Transportation: No Lack of Food: Never True Current Housing: I Have Housing Concerned About Future Housing: No Difficulty Paying Gas/Electric Bills: No Difficulty Paying for Meds: No Currently Unemployed: No Education: High School Diploma/GED Difficulty w/ Childcare or Family Care: No Living arrangements: with family Gender identity (if verbalized by the patient): Female Sexual Orientation (if Verbalized by the Patient): Straight or Heterosexual Spiritual care concerns: No Anes - Eval Final PreProcedure Day of Procedure 08/10/24 14:55 Patient weight: morbidly obese Heart: regular rate and rhythm Lungs: clear to auscultation Airway: Mallampati scale class III Neurological: alert and oriented Last oral intake: >/= 8 hours ASA classification: III Emergent: no Anesthetic plan: proceed Anesthesia type and monitoring: general LMA and standard monitoring Results Review: All pre-operative results and documents have been reviewed as part of the pre-operative evaluation. Informed Consent: The patient's anesthetic plan and its attendant risks and benefits were discussed with the patient/family/POA. Questions were solicited and answers provided to the satisfaction of the patient/family/POA.
[2024-08-11] VITALS (11 sets, daily range): BP systolic 115–151; BP diastolic 70–97; PULSE 69–84; RESP 10–20; TEMP 36.3–36.4; O2SAT 92–100; BMI 45.4
--- OUTSIDE RECORDS SUMMARY | 2024-08-11 00:52 | XMS_ITS | Clinical Summary ---
Author Organization [facility] [employer] Address [address] [place] [address] Care Team Providers Care Acid Tank Liner Name Role Phone Unavailable Primary Care Provider Unavailabl e Source Comments [facility],non-owned Affiliates and Associated Physician Practices is amultiple site organization consisting of ambulatory clinics and hospital sitesin [place], [place], [place] and [place]. This disclosure is being madepursuant to the Care Everywhere program and may not contain all information available regarding this patient. Last updated 18.[facility] [employer] Allergies No known active allergies Medications * Be aware that medications may not be up to date on this document. Alwaysverify current medications with the patient. desogestrel-eth inyl estradiol (RECLIPSEN) 0.15-30 MG-MCG tabletIndicatio ns:Hirsutism Take 1 Tab by mouth daily. Indications: Abnormal Growth of Body or Facial Hair 28 Tab 12 1 Active spironolactone (ALDACTONE) 50 MG tabletIndicatio ns:Polycystic Ovary Syndrome Take 1 Tab by mouth 2 times daily. 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 [facility] BLOOD SPECIMEN / Unknown 07/02/2010 12:13 PM CDT 07/02/2010 12:13 PM CDT us Jailyn Self MD LAB - CHEMISTRY ORDERABLES Marla villagran Result [facility] [address] [place] [address] * HIV-1 DNA PCR QUALITATIVE (07/02/2010 12:10 PM CDT) Pathologist [facility] HIV-1 DNA By PCR Not Detected Not Detected [facility] Comment Ref Lab [facility] Comment: INTERPRETATION: HIV-1 DNA PCR, QUALITATIVE This test will be inactivated with the August 2010 Hot Line due to machine packer's discontinuation of reagent. For sensitive and specific [...] test uses a kit designated by the machine packer as for research use, not for clinical use. The performance characteristics of this test were validated by [employer] The U.S. Food and Drug Administration (FDA) has not approved or cleared this test. The results are not intended to be used as the sole means for clinical diagnosis or patient management decisions. [facility] is authorized under Clinical Laboratory Improvement Amendments (CLIA) and by all states to perform high-complexity testing. This assay should not be used for blood donor screening, associated re-entry protocols, or for screening Human Cell, Tissues and Cellular Tissue-Based Products (HCT/P). BLOOD SPECIMEN / Unknown 07/02/2010 12:10 PM CDT 07/02/2010 12:12 PM CDT Narrative [facility] - 07/05/2010 12:28 AM CDT 1 Resulting Agency Comment Performed By [employer] [address] [place] [phone] us Jailyn Self MD LAB - SEROLOGY ORDERABLES Final Result [facility] [address] [place] [address] from Last 3 Months or Most Recently Relevant to Health Maintenance Insurance [facility] SELF PAY NO INSURANCE Member Subscriber Plan / Payer (Ef fective for All Dates) Name:[place] Henrietta L Member ID:Not on file Relation to Subscriber:Not on file Name:HENRIETTA HAN Subscriber ID:Not on file Address: [address] [place] [phone] Payer ID:Not on file Group ID:Not on file Type:Self Pay Address: [place], [place]
--- OUTSIDE RECORDS SUMMARY | 2024-08-11 00:52 | XMS_ITS | Data Portability ---
Author Organization [facility] [place] Address [address] [place] [address] Assessment Encounter Date Assessment Date Assessment LastModified by Organization Details LastModified Time 06/22/2024 06/22/2024 Annual gynecological exam performed. Patient will come back in a year unless there are new symptoms. [place] [id number] Not available 06/22/2024 16:36:05 Plan of Treatment Reminders Order Date Submit Date Provider Last Modified By Organization Details Last Modified Time Details Appointments None recorded. Lab hbcab (hepatitis B core Ab) igm, serum [address] (Lab), [address], [place], [address], 5 15:40:56 HBsAg (hepatitis B surface Ag), serum [address] (Lab), [address] [place], [address], 5 15:40:56 hepatitis C virus Ab, serum [address] (Lab), [address] [place], [address], 5 15:40:57 HIV 1+2 AB + HIV 1 p24 Ag, qualitative immunoassay , serum [address] (Lab), [address] [place], [address], 5 15:40:57 RPR (rapid plasma reagin), serum [address] (Lab), [address] [facility], [place], [address], 5 15:40:57 CMP, serum or plasma [address] (Lab), [address] [facility], [place], [address], 5 15:40:56 CBC w/ auto diff [address] (Lab), [address] [facility], [place], [address], 5 15:40:56 lipid panel, blood [address] (Lab), [address] [facility], [place], [address], 5 15:40:56 HbA1c (hemoglobin A1c), blood [address] (Lab), [address] [facility], [place], [address], 5 15:40:56 25-hydroxyv itamin D2 + 25-hydroxyv itamin D3, QN, serum or plasma [address] (Lab), [address] [facility], [place], [address], 5 15:40:56 TSH, serum or plasma [address] (Lab), [address] [facility], [place], [address], 5 15:40:56 Referral None recorded. Procedures None recorded. Surgeries None recorded. Imaging non-stress test 2023 Shelia Nunn, [address], [address], [place], [address], 4 11:30:22 Medication Orders fluconazole 150 mg tablet 2024 025 BEATRIZ [facility] #[id number], [address], [place], [place], [id number], 5 17:00:00 Procardia XL 30 mg tablet,exte nded release 2023 024 [email or web address] [facility] #[id number], [address], [place], [place], [id number], 16:44:17 Patient TargetsNo targets recorded. Patient InstructionsNo instructions recorded. Reason for Referral None Reported. Results Created Date Observation Date Name Description Value Unit Range Abnormal Flag Note LastModifiedBy Organization Detail LastModifiedTime 04/08/2004/08/2023 CULTU RE: GROUP B STREP SCREE N, REFLE X SUSCE PTIBI LITY result report SEE RESULT S BELOW Test: Cultu re: Group B Strep , Refle x Susce ptibi lity ([facility] ) Speci men Sourc e: Vagin a/Rec katie Speci men Type: Vagin al/Re ctal Speci men Date: 04/08 3:42 PM Resul t Date: 04/11 11:39 AM Resul t Statu s: Final resul t Abnor mal: No Resul ting Lab: [facility] [address] [facility] [address] Tel: CULTU RE ----- ----- ----- --- No Group B strep isola vandana at 2 days (wen ctive broth enhan cemen t) Not Available [facility] (Lab) [address] [facility], [place], [address], 04/11/2023 12:44:08 06/23/1906/22/2024 IMAGE GUIDE D PAP AND HPV REGAR DLESS image guided Pap, HPV regardless of Pap result SEE RESULT S BELOW CASE REPOR T: Cytol ogy Gynec ologi heatehr Repor t Case: [id number] Autho shaun smith Provi whitney: Rosa Padron, STUART Page cted: 06/22 1624 Order ing Locat ion: [place] Patho logy Recei raheem: 06/23 1040 First Juaquine n: Amanda Chou ret, CT Speci men: [...] stent with Jennifer da spp. Elect citlalli wadsworth hollis d by DEVANTE Patterson ret on 025 at 1309 STATISTICAL PROGRAMMER ANALYST ----- ----- ----- ----- ----- ----- ----- [...] as clini letha leary nted. Not Available [facility] (Lab) [address] , [place], [address], 06/25/2024 14:13:11 06/23/19 25 06/22/2024 TRICH OMONA S VAGIN GURPREET (RRNA ) trichomonas vaginalis ribosomal RNA (rrna) Negati ve negati ve Not Available [facility] (Lab) [address] [place], [address], 06/25/2024 14:13:12 06/23/19 25 06/22/2024 CT/GC (MADIHA) , THINP REP VIAL chlamydia trachomatis, PCR Negati ve negati ve Not Available [facility] (Lab) [address] [place], [address], 06/25/2024 14:13:13 06/23/19 25 06/22/2024 CT/GC (MADIHA) , THINP REP VIAL neisseria gonorrhoeae, PCR Negati ve negati ve Not Available [facility] (Lab) [address] [facility], [place], [address], 06/25/2024 14:13:13 04/01/20 23 04/01/2023 US, obste tric, follo w-up No observ ation record ed. [facility] [address], [place], [address], 04/01/2023 17:50:06 04/01/20 23 04/01/2023 US, obste tric, bioph ysica l profi le + non-s tress test No observ ation record ed. [facility] [address], [place], [address], 04/01/2023 17:50:17 04/01/20 23 04/01/2023 US, obste tric, follo w-up No observ ation record ed. [email or web address] [facility], [place], [address], 04/02/2023 12:14:55 04/01/20 non-s tress test No observ ation record ed. [email or web address] [place] [address], [place], [address], 04/01/2023 16:08:22 04/01/20 23 04/01/2023 non-s tress test No observ ation record ed. [email or web address] [place] [address], [place], [address], 04/01/2023 17:04:52 04/01/20 non-s tress test No observ ation record ed. [place] [address], [place], [address], 04/01/2023 17:06:03 04/08/20 23 04/08/2023 non-s tress test No observ ation record ed. [email or web address] [place] [address], [place], [address], 04/08/2023 10:26:06 04/08/20 23 04/08/2023 US, obste tric, bioph ysica l profi le + non-s tress test No observ ation record ed. [email or web address] [place] [address], [place], [address], 04/08/2023 13:23:29 04/08/20 23 04/08/2023 US, obste tric, bioph ysica l profi le + non-s tress test No observ ation record ed. [email or web address] [address], [facility], [place], [address], 04/08/2023 13:49:40 04/15/20 23 04/15/2023 non-s tress test No observ ation record ed. [email or web address] [place] [address], [place], [address], 04/15/2023 10:31:23 04/15/20 23 04/15/2023 US, obste tric, bioph ysica l profi le No observ ation record ed. [email or web address] [place] [address], [place], [address], 04/15/2023 14:06:08 04/15/20 23 04/15/2023 US, obste tric, bioph ysica l profi le No observ ation record ed. [email or web address] [place] [address], [place], [address], 04/15/2023 14:12:38 04/22/19 24 04/22/2023 non-s tress test No observ ation record ed. [email or web address] [place] [address], [place], [address], 04/22/2023 10:54:01 04/22/19 24 04/22/2023 US, obste tric, bioph ysica l profi le + non-s tress test No observ ation record ed. [email or web address] [place] [address], [place], [address], 04/22/2023 13:32:14 04/22/19 24 04/22/2023 US, obste tric, follo w-up No observ ation record ed. [email or web address] [address], [place], [address], 04/23/2023 10:57:32 04/29/19 24 04/29/2023 non-s tress test No observ ation record ed. [email or web address] [place] [address], [place], [address], 04/29/2023 10:26:45 04/29/19 24 04/29/2023 US, obste tric, follo w-up No observ ation record ed. [email or web address] [place] [address], [place], [address], 04/29/2023 11:24:45 04/29/19 24 04/29/2023 US, obste tric, follo w-up No observ ation record ed. [email or web address] [address], [place], [address], 04/29/2023 17:49:04 Result Notes None recorded. Problems Name Problem SNOMED Code Status Onset Date Resolution Date Notes Provider Name and Address Organization Details Recorded Time Gestatio nal diabetes mellitus 46368939 Completed 12 units in AM and HS Chuck Horner [facility] [place] - [facility] 0 16:22:01 Pregnanc y-induce d hyperten jesenia 49385338 Completed 37 wk delivery - 12:01am 11/21 Chuck Horner [facility], [facility] 0 16:22:01 Human papillom a virus infectio n 722789480 Completed Chuck Horner [facility], [facility] 0 16:22:01 Pregnanc y 97538403 Completed 201903/09/2020 Fredabannerramya Horner [facility], [facility] 4 14:20:16 Pregnanc y 45286010 Completed 202005/14/2021 Chuck Horner [facility] 4 14:20:16 Pregnanc y-induce d hyperten jesenia 51713931 Completed h/o GHTN, but not pre-ecla mpsia. Doesn't require antenata l testing. baseline PIH labs WNL Carola Ortizkellee sparkle [facility], [facility] 2 12:49:52 Deliveri es by [id number] Completed To repeat - 04/23/21- may need to be moved up due to uncontro lled DM Carola Mandi sparkle [facility], [facility] 2 12:49:52 Localize d chest pain [id number] 9106 Completed Cardiolo gy - saw cards, CP resolved , FU with cards in May Carola Mandi villagran [facility], [facility] 2 12:49:52 Past pregnanc y history of gestatio nal diabetes mellitus 321706924 Completed Insulin controll ed - early 1 hr GTT - passed, await 28 wk test Bear Masters MD [address], [place], [address], [facility] 1 10:53:03 Obesity 016040076 Completed BMI 44 - 34 wk weekly antenata l testing Carola villagran null, [facility] 2 12:49:52 Marginal insertio n of umbilica l cord 74357874 Completed Serial growth u/s Carola weiner, [facility] 2 12:49:52 RhD negative 026849776 Completed Carola villagran [facility], [facility] 2 12:49:52 Gestatio nal diabetes mellitus 32961254 Completed INSULIN 20u @ HS, 4units before dinner 04/10, BS MELBA, Antenata l testing [facility] 12:49:52 RhD negative 197112224 Active Carola villagran null, [facility] 2 12:49:52 Gestatio nal diabetes mellitus 17112389 Completed 04/01/2023 INSULIN 20u @ HS, 4units before dinner 04/10, BS MELBA, Antenata l testing KACY TITUS MD [address], [place], [address], [facility] 3 21:55:41 Deliveri es by [id number] Active To repeat Chuck Horner [facility], [facility] 4 14:20:10 Obesity 820192874 Active 34 wk weekly antenata l testing Chuck Horner [facility] 4 14:20:10 Pregnanc y 26360685 Completed 202205/08/2023 Chuck Horner [facility] 4 14:20:16 Obesity 723630263 Completed 34 wk weekly antenata l testing Chuck Horner [facility] 4 14:20:10 Past pregnanc y history of gestatio nal diabetes mellitus 137791459 Completed historic al, x2, insulin dependen t Chuck Horner [facility] 4 14:20:10 Deliveri es by [id number] Completed [facility], [facility] 4 14:20:10 Past pregnanc y history of gestatio nal hyperten jesenia 014385701 Completed Chuck Horner [facility] 4 14:20:10 Female steriliz ation Completed tubal at [facility] 4 14:20:10 Prophyla ctic immunoth erapy Completed rhogam 28wks - 02/27/23 Chuck Horner [facility] 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 4 14:20:10 Recurren t infectio us disease 1950073446 38812 Completed yeast - prophyla ctic therapy after delivery [facility] 4 14:20:10 Speciali zed medical examinat ion Completed 201409/21/2020 Other specifie d chlamydi al diseases ;Practic e ID: [email or web address] Miranda Farley [facility] 1 11:34:22 Venereal disease screenin g Completed 201409/21/2020 Screenin g examinat ion for venereal disease; Practice ID: [id number] Miranda Farley [facility] 11:34:24 Pregnanc y detectio n examinat ion Completed 201909/21/2020 Encounte r for pregnanc y test, result positive ;Practic e ID: 0001 Miranda weiner, [facility] 11:34:[address] Concept Completed 201909/21/2020 Maternal care for oth problems , first trimeste r, unsp;Pra ctice ID: [id number] Miranda weiner, [facility] 11:34:18 Gestatio n period, 9 weeks 540796 Completed 201909/21/2020 9 weeks gestatio n of pregnanc y;Practi ce ID: 0001 Miranda weiner, [facility] 11:34:01 Antenata l screenin g Completed 201909/21/2020 Encounte r for antenata l screenin g for nuchal transluc ency;Pra ctice ID: [id number] Miranda weiner, [facility] 11:33:58 Pregnanc y, childbir th and puerperi um finding Completed 201909/21/2020 Encntr for suprvsn of normal first preg, second trimeste r;Practi ce ID: 0001 Miranda weiner, [facility] 11:34:13 Normal pregnanc y in multigra della [id number] 22208 Completed 201909/21/2020 Encounte r for suprvsn of normal pregnanc y, second trimeste r;Practi ce ID: 0001 Miranda weiner, [facility] 11:34:04 Pregnanc y test negative 170669137 Completed 201409/21/2020 Pregnanc y examinat ion or test, negative result;R ecorded Elsewher e: No [facility]at [facility] ource: EHR Ice Delivery Driver rudi: N Practi ce ID: 0001 Laz lable Time: 03:00:00 PM Miranda Farley regine, [facility] 11:34:11 Screenin g for malignan t neoplasm of cervix Completed 201409/21/2020 Screenin g for malignan t neoplasm s of the cervix;R ecorded Elsewher e: No Locat ion: [facility]: [facility] rudi: N Practi ce ID: 0001 Laz lable Time: 03:00:00 PM Miranda Farley regine, [facility] 11:34:15 Speciali d medical examinat ion Completed 201409/21/2020 ROUTINE COMMUTATOR TESTER EXAMINAT ION;Mat rded Elsewher e: No Locat ion: [facility] S ource: EHR Ice Delivery Driver rudi: N Practi ce ID: 0001 Laz lable Time: 03:00:00 PM Miranda Farley regine, [facility] 11:34:20 Morbid obesity 408532069 Completed 201409/21/2020 Obesity, Morbid;R ecorded Elsewher e: No Locat ion: [facility] S ource: EHR Ice Delivery Driver rudi: N Practi ce ID: 0001 Laz lable Time: 03:00:00 PM Miranda Farley regine, [facility] 11:34:02 Adult health examinat ion Completed 201409/21/2020 ROUTINE MEDICAL EXAM;Rec orded Elsewher e: No Locat ion: [facility] S ource: EHR Ice Delivery Driver rudi: N Practi ce ID: 0001 Laz lable Time: 03:00:00 PM Miranda weiner, [facility] 11:33:55 Obesity 356680456 Completed 201909/21/2020 Antenata l testing at 32 weeks Miranda Farley null, [facility] 1 11:34:05 Obesity 170756872 Completed 2019 Antenata l testing at 32 weeks Chuck Horner [facility], [facility] 0 16:22:01 Infectio n by Trichomo cookie [id number] Completed Tested + at outside facility MATEUSZ neg 10/10 Chuck Horner [facility], [facility] 0 16:22:01 Problem Notes None recorded. Procedures Surgical History Date Name Laterality Status Provider Name and Address Organization Details Recorded Time 4 SECTION (SURG) completed [facility] 05/07/2023 09:54:28 4 SECTION (SURG) completed [facility] 06/02/2023 11:49:29 3 Date of Last Pap Smear completed Ruchi Moss [facility] 06/22/2024 16:45:01 0 section completed Miranda Farley [facility] 09/20/2020 20:02:39 Caesarean Section completed Marianna Aguilera [facility] 09/20/2022 11:54:42 Imaging Results Imaging Date Name Status LastModified by Organiz ation Details LastModified Time 04/01/2023 US, obstetric, follow-up completed [facility] [address], [place], [address], 04/01/2023 17:50:06 04/01/2023 US, obstetric, biophysical profile + non-stress test completed [facility] [address], [place], [address], 04/01/2023 17:50:17 04/01/2023 US, obstetric, follow-up completed [email or web address] [address], [place], [address], 04/02/2023 12:14:55 04/01/2023 non-stress test completed [email or web address] [place] [address], [place], [address], 04/01/2023 16:08:22 04/01/2023 non-stress test completed [email or web address] [place] [address], [place], [address], 04/01/2023 17:04:52 04/01/2023 non-stress test completed [email or web address] [place] [address], [place], [address], 04/01/2023 17:06:03 04/08/2023 [facility]-stress test [email or web address] [place] [address], [place], [address], 04/08/2023 10:26:06 04/08/2023 US, obstetric, biophysical profile + non-stress test completed [email or web address] [place] [address], [place], [address], 04/08/2023 13:23:29 04/08/2023 US, obstetric, biophysical profile + non-stress test completed [email or web address] [address], [place], [address], 04/08/2023 13:49:40 04/15/2023 non-stress test [email or web address] [place] [address], [place], [address], 04/15/2023 10:31:23 04/15/2023 US, obstetric, biophysical profile completed [email or web address] [place] [address], [place], [address], 04/15/2023 14:06:08 04/15/2023 US, obstetric, biophysical profile completed [email or web address] [place] [address], [place], [address], 04/15/2023 14:12:38 04/22/2023 non-stress test completed [email or web address] [place] [address], [place], [address], 04/22/2023 10:54:01 04/22/2023 US, obstetric, biophysical profile + non-stress test completed [email or web address] [place] [address], [place], [address], 04/22/2023 13:32:14 04/22/2023 US, obstetric, follow-up completed [email or web address] [address], [place], [address], 04/23/2023 10:57:32 04/29/2023 non-stress test completed [email or web address] [place] [address], [place], [address], 04/29/2023 10:26:45 04/29/2023 US, obstetric, follow-up completed ana paulack [place] [address], [place], [address], 04/29/2023 11:24:45 04/29/2023 US, obstetric, follow-up completed [email or web address] [address], [place], [address], 04/29/2023 17:49:04 Procedure Notes None recorded. Medical [...] route every week 05/13 completed Prescrib yohana avery: Ute Locat ion: [facility] nilsify By: billie raines DateTime : 09/21/19 03:34:48 PM Not Available Not Available Not Available insulin syringe U-100 with needle 0.3 mL 30 USE EVERY DAY WITH INSULIN 04/30 completed Not Available Not Available Not Available insulin syringe U-100 with needle 0.3 mL 29 gauge 04/30 completed Not Available Not Available Not Available Microgest in Fe 1.5/30 (28) 1.5 mg-30 mcg (21)/75 mg (7) tablet Take 1 tablet every day by oral route. 09/20 completed Not Available Not Available Not Available iron 04/30 completed Not Available Not Available Not Available 06/22 completed Not Available Not Available Not Available FreeStyle [place] Lite kit active Not Available Not Available [...] 42.5 kg/m2 117 mm[Hg] 80 mm[Hg] Rosalba Webb [facility] 04/29/2023 10:29:58 Date Recorded Body weight Provider Name an d Address Organization Details Last Updated DateTime 04/29/2023 286325.68638 g Regina GOLDEN [address], [place], [address], [facility] 04/29/2023 11:20:54 Date Recorded Body height Body mass index (BMI) Body weight Systolic blood pressure Diastolic blood pressure Provider Name and Address Organization Details Last Updated DateTime 05/13/2023 154.94 cm 40.6 kg/m2 96782.36 g 153 mm[Hg] 93 mm[Hg] Marianna Aguilera [facility] 4 15:36:43 Date Recorded Body height Body mass index (BMI) Body weight Systolic blood pressure Diastolic blood pressure Provider Name and Address Organization Details Last Updated DateTime 06/25/2023 154.94 cm 43.1 kg/m2 733863.7 8 g 131 mm[Hg] 81 mm[Hg] Yumiko Ambriz [facility] 4 15:26:18 Date Recorded Body height Body mass index (BMI) Body weight Systolic blood pressure Diastolic blood pressure Provider Name and Address Organization Details Last Updated DateTime 06/22/2024 154.94 cm 44.7 kg/m2 030749.9 5 g 136 mm[Hg] 80 mm[Hg] Ruchi Moss [facility] 5 16:43:24 Social History Question Answer Notes LastModified by Organizat ion Details LastModified Time Tobacco Smoking Status Never Smoker Ruchi weiner, [facility] 05/13/2023 15:03:53 Do You Have An Advance Directive? No Information not available 09/21/2020 What Is Your Level Of Alcohol Consumption? None Information not available 12/13/2020 If You Are , What Was Your Level Of Alcohol Consumption Prior To ? None [email or web address] Information not available 05/13/2023 Are You Blind Or Do You Have Difficulty Seeing? No [email or web address] Information not available 09/21/2020 What Is Your Level Of Caffeine Consumption? Occasional Information not available 11/01/2022 How Much Tobacco Do You Chew? None Information not available 12/13/2020 In The 14 Days Before Symptom Onset, Have You Had Close Contact With A Laboratory-confir med COVID-19 While That Case Was Ill? No [email or web address] Information not available 09/21/2020 In The 14 Days Before Symptom Onset, Have You Had Close Contact With A Person Who Is Under Investigation For COVID-19 While That Person Was Ill? No [email or web address] Information not available 09/21/2020 Have You Been To An Area Known To Be High Risk For COVID-19? No Information not available 09/21/2020 Are You Deaf Or Do You Have Serious Difficulty Hearing? No [email or web address] Information not available 09/21/2020 What Type Of Diet Are You Following? REGULAR Information not available 12/13/2020 Which Illicit Or Recreational Drugs Have You Used? Marijuana [email or web address] Information not available 05/13/2023 What Is The Highest Grade Or Level Of School You Have Completed Or The Highest Degree You Have Received? 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 No [email or web address] Information not available 09/21/2020 Have You Ever Been Counseled For Unhealthy Alcohol Use? No [email or web address] Information not available 05/13/2023 Do You Use Protection During Sex? No [email or web address] Information not available 09/21/2020 Do You Use Your Seat Belt Or Car Seat Routinely? Yes [email or web address] Information not available 09/21/2020 Do You Have Smoke And Carbon Monoxide Detectors In Your Home? Yes [email or web address] Information not available 09/21/2020 How Much Tobacco Do You Smoke? No [email or web address] Information not available 09/21/2020 Do You Feel Stressed (tense, Restless, Nervous, Or Anxious, Or Unable To Sleep At Night)? [id number] [email or web address] Information not available 09/21/2020 Do You Use Any Illicit Or Recreational Drugs? Yes [email or web address] Information not available 09/21/2020 Do You Use Sunscreen Routinely? No [email or web address] Information not available 09/21/2020 Has Tobacco Cessation Counseling Been Provided? No [email or web address] Information not available 05/13/2023 Have You Used IV Drugs? No [email or web address] Information not available 09/21/2020 Do You Or Have You Ever Used Any Other Forms Of Tobacco Or Nicotine? No [email or web address] Information not available 05/13/2023 Sex: Unknown Functional Status Question Answer Note LastModified by Organizat ion Details LastModified Time Are you able to walk? YESWOREST [email or web address] Information not available 09/21/2020 What is your exercise level? Occasional [email or web address] Information not available 09/21/2020 Mental Status None [...] ICD10 Code Diagnosis Note 872 Queenie Park [facility] [address],[place] [address] 08/04/2019 11:46:01 08/05/2019 14:50:03 Routine care 884402158 Z34.92 Pt is 21 weeks. She had to cancel her first baseline and missed her appt yesterday d/t missing her alarm. Discussed importance of baseline anatomy. Pt will schedule next week. She does have some transporta tion issues. Resources given. Pt has recently (07-11) lost her mother to lung cancer and she also has custody of 4 nieces/nep hews. 1343 Bear Masters MD [facility] [address],[place] [address] 08/09/2019 12:07:11 08/09/2019 17:24:30 screening for malformation 724984353 Z36.3 8980 Bear Masters MD [facility] [address],[place] [address] 10/11/2019 15:28:01 10/11/2019 17:46:48 Routine care 115324975 Z34.03 8981 [facility] [address],[place] [address] 10/11/2019 15:28:16 10/11/2019 17:16:35 screening 140487022 Z36.2 9895 Carola Gotti [facility] [address],[place] [address] 1 10/18/2019 15:02:43 10/18/2019 15:49:24 Gestational diabetes mellitus class A1 46654439 O24.410 [id number] Bear Masters MD [facility] [address],[place] [address] 1 10/18/2019 15:03:49 10/18/2019 16:06:35 Vaginitis 17740136 N76.0 Routine an tenatal care 620390480 Z34.03 [id number] Queenie Park [facility] [address],[place] [address] 10/20/2019 14:54:17 10/20/2019 15:47:11 Gestational diabetes mellitus complicating 7423135829 9106 O24.419 GDM diet teaching. Discussed carb counting, meal planning, bs logging, and handout given. Discussed risks to of uncontroll ed GDM to mom and baby. RTC in 1 week to evaluate bs. testing scheduled. [id number] Carola Gotti [facility] [address],[place] [address] 10/21/2019 12:27:21 10/21/2019 14:29:54 Gestational diabetes mellitus class A1 15188410 O24.410 [id number] Bear Masters MD [facility] [address],[place] [address] 10/25/2019 10:58:50 10/25/2019 12:20:25 Routine care 101922465 Z34.03 10215 Chuck Horner [facility] [address],[place] [address] 1 10/25/2019 10:59:17 10/25/2019 12:14:51 Gestational diabetes mellitus class A1 21087825 O24.410 [id number] Carola Gotti [facility] [address],[place] [address] 10/28/2019 10:17:50 10/28/2019 13:22:38 Gestational diabetes mellitus class A1 13163489 O24.410 [id number] Carola Gotti [facility] [address],[place] [address] 11/01/2019 15:27:18 11/01/2019 16:21:30 Gestational diabetes mellitus class A1 53905220 O24.410 59189 Bear Masters MD [facility] [address],[place] [address] 1 11/01/2019 15:27:37 11/01/2019 17:43:40 Routine care 236679882 Z34.03 42340 Carola Gotti [facility] [address],[place] [address] 11/04/2019 11:28:31 11/04/2019 13:00:11 Gestational diabetes mellitus class A2 20346851 O24.414 [id number] [facility] [address],[place] [address] 11/04/2019 12:06:27 11/04/2019 13:00:45 condition affecting obstetrical care of mother 399819540 O36.8330 Z3A.34 [id number] Carola Gotti [facility] [address],[place] [address] 11/08/2019 16:04:32 11/08/2019 17:20:20 Gestational diabetes mellitus class A2 50028462 O24.414 97357 [place] [address],[place] [address] 11/08/2019 16:05:04 11/08/2019 17:59:13 Gestational diabetes mellitus class A1 25806170 O24.410 O99.213 Z3A.35 32851 Queenie Park [facility] [address],[place] [address] 11/08/2019 16:05:18 11/08/2019 22:23:05 Routine care 226290795 Z34.92 [id number] Carola Gotti [facility] [address],[place] [address] 1 11/11/2019 11:38:31 11/11/2019 12:41:44 Gestational diabetes mellitus class A2 92794642 O24.414 [id number] Carola Gotti [facility] [address],[place] [address] 11/15/2019 10:34:03 11/15/2019 11:16:25 Gestational diabetes mellitus class A2 17833564 O24.414 93923 Queenie Park [facility] [address],[place] [address] 1 11/15/2019 10:34:26 11/16/2019 14:27:44 Routine care 560526989 Z34.92 22263 Carola Gotti [facility] [address],[place] [address] 1 11/18/2019 12:32:45 11/18/2019 13:47:57 Gestational diabetes mellitus class A2 42683505 O24.414 46758 Bear Masters MD [facility] [address],[place] [address] 12/02/2019 12:05:47 12/02/2019 13:34:28 Candidiasis of skin 09641041 B37.2 This patient is a 40-year-ol d [...] skin changes and her blood pressure concerns. 79427 Nayely Blum [facility] [address],[place] [address] 1 09/21/2020 10:54:27 09/21/2020 11:28:17 screening 581896577 Z36.87 25025 Ngoc Morris CNM [facility] [address],[place] [address] 09/21/2020 10:55:10 09/21/2020 11:54:11 Gynecologic examination 95803709 Z01.419 Amenorrhea 51106617 N91. 2 01149 Dariela Martin [facility] [address],[place] [address] 1 10/19/2020 14:56:43 10/19/2020 15:30:09 screening 134720388 Z36.82 97035 Bear Masters MD [facility] [address],[place] [address] 1 10/19/2020 14:57:09 10/24/2020 14:41:55 Routine care 531265578 Z34.03 84352 Lynn Yuan MD [facility] [address],[place] [address] 1 11/17/2020 15:33:38 11/18/2020 14:20:17 Routine care 589181796 Z34.82 Past pregn edmundo history of section 604945565 Z98.890 Past pregn edmundo history of gestational diabetes mellitus 375312414 Z86.32 84660 Bear Masters MD [facility] [address],[place] [address] 12/13/2020 13:59:12 12/13/2020 16:55:42 screening for malformation 159568580 Z36.3 75002 Bear Masters MD [facility] [address],[place] [address] 12/13/2020 13:59:12 12/13/2020 16:55:42 Routine care 390345408 Z34.03 16649 Queenie Park [facility] [address],[place] [address] 1 01/09/2021 14:28:37 01/09/2021 17:26:35 Routine care 703207572 Z34.92 01553 Nayely Blum [facility] [address],[place] [address] 1 01/09/2021 14:28:18 01/09/2021 15:44:19 screening 220022850 Z36.2 92308 Shanice Escalona [facility] [address],[place] [address] 02/05/2021 13:52:36 02/05/2021 14:48:18 Marginal insertion of umbilical cord 33979064 O43.129 Z3A.27 31045 Bear Masters MD [facility] [address],[place] [address] 02/05/2021 13:52:57 02/05/2021 16:12:16 Routine care 193376913 Z34.03 42899 Yamileth Pino [facility] [address],[place] [address] 1 02/20/2021 09:24:47 02/20/2021 09:35:18 [id number] [facility] [address],[place] [address] 02/20/2021 09:25:04 02/21/2021 13:03:00 Routine care 480836430 Z34.92 32376 [facility] [address],[place] [address] 02/20/2021 11:00:21 02/20/2021 12:10:06 Routine care 641672874 Z34.92 s ection following previous section 328688918 O34.219 82233 [facility] [address],[place] [address] 03/08/2021 09:22:48 03/08/2021 10:29:42 Gestational diabetes mellitus class A2 51272563 O24.414 98802 N[facility] [address],[place] [address] 03/08/2021 09:23:16 03/08/2021 11:47:05 AND/OR placental disorder affecting management of mother 94940926 O43.013 O36.8330 O13.3 Z3A.32 02773 Bear Masters MD [facility] [address],[place] [address] 03/08/2021 09:23:51 03/08/2021 11:47:31 Gestational diabetes mellitus class A2 57223701 O24.414 67524 [facility] [address],[place] [address] 1 03/13/2021 10:05:31 03/13/2021 11:20:25 Gestational diabetes mellitus class A2 62129831 O24.414 [id number] Bear Masters MD [facility] [address],[place] [address] 1 03/13/2021 10:05:51 03/13/2021 12:04:02 Gestational diabetes mellitus class A2 25807766 O24.414 32196 Shanicefilippo Escalona [facility] [address],[place] [address] 03/13/2021 11:07:25 03/13/2021 11:49:51 condition affecting obstetrical care of mother 819634996 O36.8330 Z3A.32 56264 [facility] [address],[place] [address] 1 03/20/2021 09:59:00 03/20/2021 12:06:49 Gestational diabetes mellitus class A2 47354053 O24.414 97117 Taryn Maravilla [facility] [address],[place] [address] 1 03/23/2021 10:58:56 03/23/2021 12:25:44 Gestational diabetes mellitus class A2 71335922 O24.414 60001 Lynn Yuan MD [facility] [address],[place] [address] 1 03/23/2021 10:59:13 03/23/2021 13:52:00 Deliveries by 026183614 O82 Gestationa l diabetes mellitus 87486340 O24.419 Marginal i nsertion of umbilical cord 51227353 O43.129 Z3A.27 Obesity 932559801 E66.9 02941 [facility] [address],[place] [address] 03/27/2021 09:28:46 03/27/2021 10:21:03 Gestational diabetes mellitus class A2 00060124 O24.414 14956 [facility] [address],[place] [address] 1 03/27/2021 09:57:10 03/27/2021 11:08:54 condition affecting obstetrical care of mother 462476829 O36.8330 Z3A.34 59762 Ngoc Morris [facility] [address],[place] [address] 03/30/2021 10:12:00 03/30/2021 11:52:55 [id number] [facility] [address],[place] [address] 1 03/30/2021 10:13:07 03/30/2021 11:14:12 Gestational diabetes mellitus class A2 72278213 O24.414 09253 [facility] [address],[place] [address] 04/03/2021 09:21:02 04/03/2021 10:21:15 Gestational diabetes mellitus class A2 91844187 O24.414 46185 [facility] [address],[place] [address] 1 04/06/2021 11:00:23 04/06/2021 12:06:08 Gestational diabetes mellitus class A2 06827792 O24.414 24782 Shanicefilippo Escalona [facility] [address],[place] [address] 04/06/2021 11:00:43 04/06/2021 12:23:03 AND/OR placental disorder affecting management of mother 47852034 O43.129 O24.419 O99.210 Z3A.36 98117 Lynn Yuan MD [facility] [address],[place] [address] 1 04/06/2021 11:01:13 04/06/2021 12:27:56 Deliveries by 791347522 O82 Gestationa l diabetes mellitus 01742424 O24.419 Obesity 338830624 E66.9 19105 Queenie Park [facility] [address],[place] [address] 04/10/2021 09:25:06 04/10/2021 10:57:36 Routine care 306582579 Z34.92 [id number] [facility] [address],[place] [address] 1 04/10/2021 09:24:52 04/10/2021 10:11:07 Gestational diabetes mellitus class A2 08008874 O24.414 38509 [facility] [address],[place] [address] 04/10/2021 10:04:47 04/10/2021 10:35:21 condition affecting obstetrical care of mother 554942926 O36.8330 Z3A.36 [id number] [facility] [address],[place] [address] 04/17/2021 09:27:36 04/17/2021 10:00:43 Gestational diabetes mellitus class A2 97800929 O24.414 Z3A.37 43480 [facility] [address],[place] [address] 04/17/2021 09:28:09 04/17/2021 11:01:04 Gestational diabetes mellitus class A2 18242952 O24.414 [id number] Lynn Yuan MD [facility] [address],[place] [address] 1 04/17/2021 09:28:34 04/17/2021 16:09:12 Deliveries by [id number] O82 Gestationa l diabetes mellitus 92007124 O24.419 [id number] MD Arline Marmolejo [address],[place] [address] 1 04/24/2021 09:14:22 04/24/2021 09:15:54 [id number] MD Arline Marmolejo [address] [place] [address] 1 04/30/2021 10:57:34 04/30/2021 11:31:18 Wound cellulitis 173554933 L03.90 Postoperative visit 1836 18975 Z09 [id number] Lynn Yuan MD [facility] [address] [place] [address] 1 05/04/2021 12:25:16 05/04/2021 13:11:00 [id number] Lynn Yuan MD [facility] [address],[place] [address] 05/16/2021 14:09:36 05/16/2021 14:35:59 Candidiasis of skin 75895318 B37.2 [id number] Lynn Yuan MD [facility] [address],[place] [address] 1 06/08/2021 12:22:08 06/08/2021 13:09:03 care 512774433 Z39.2 Deliveries by 499735119 O82 Gestationa l diabetes mellitus 41490241 O24.419 Past pregn edmundo history of gestational diabetes mellitus 471641698 Z86.32 Initial pr escription of oral contraception 848495743 Z30.011 [id number] Lynn Yuan MD [facility] [address],[place] [address] 10/08/2021 12:49:34 10/08/2021 13:29:18 Gynecologic examination 58561655 Z01.419 Venereal d isease screening 856602883 Z11.3 Initial pr escription of oral contraception 632266383 Z30.011 [id number] Dariela Martin [facility] [address],[place] [address] 1 09/20/2022 10:45:17 09/20/2022 11:23:27 [id number] Bear Masters MD [facility] [address],[place] [address] 1 09/20/2022 10:45:44 09/20/2022 12:22:21 Amenorrhea 08588997 N91.2 this patient is a 31-year-ol d [...] begin routine care at her next visit. [id number] [facility] [address],[place] [address] 11/01/2022 10:59:31 11/01/2022 11:58:35 screening 936260411 Z36.82 [id number] Bear Masters MD [facility] [address],[place] [address] 11/01/2022 11:00:34 11/01/2022 12:45:42 Routine care 958199198 Z34.03 [id number] Bear Masters MD [facility] [address],[place] [address] 11/27/2022 13:44:28 11/27/2022 15:02:59 Routine care 575657712 Z34.03 [id number] [facility] [address],[place] [address] 1 12/26/2022 09:34:08 12/26/2022 10:58:30 screening for malformation 026984701 Z36.3 [id number] Bear Masters MD [facility] [address],[place] [address] 1 12/26/2022 09:34:34 12/26/2022 12:14:06 Routine care 705169414 Z34.03 [id number] Bear Masters MD [facility] [address],[place] [address] 1 01/23/2023 09:49:59 01/23/2023 11:27:22 Routine care 094162488 Z34.03 [id number] [facility] [address],[place] [address] 1 01/23/2023 09:50:40 01/23/2023 12:12:31 screening 900240027 Z36.2 Z3A.24 [id number] Marianna Aguilera [facility] [address],[place] [address] 01/30/2023 13:58:53 01/30/2023 14:56:56 [id number] Bear Masters MD [facility] [address],[place] [address] 02/17/2023 09:28:03 02/17/2023 10:06:35 Headache 88410144 R51.9 Routine an tenatal care 834648963 Z34.03 [id number] [facility] [address],[place] [address] 02/27/2023 12:06:05 02/27/2023 13:25:21 Maternal obesity complicating , childbirth and the puerperium, antepartum 1595260970 07 O99.213 Z3A.29 [id number] Bear Masters MD [facility] [address],[place] [address] 02/27/2023 14:06:09 02/27/2023 15:21:50 Routine care 073662598 Z34.03 [id number] Bear Masters MD [facility] [address],[place] [address] 03/10/2023 09:42:59 03/10/2023 10:54:38 Routine care 841680040 Z34.03 [id number] Bear Masters MD [facility] [address],[place] [address] 1 03/25/2023 11:38:41 03/25/2023 12:21:27 Vaginitis 69771544 N76.0 Routine an tenatal care 495146785 Z34.03 [id number] [facility] [address],[place] [address] 04/01/2023 13:22:12 04/01/2023 14:52:12 Maternal obesity complicating , childbirth and the puerperium, antepartum 2436147345 07 O99.213 Z3A.34 [id number] Taryn Maravilla [facility] [address],[place] [address] 04/01/2023 14:42:33 04/02/2023 09:08:49 Gestational diabetes mellitus 72557425 O24.419 011953 KACY TITUS MD [facility] [address],[place] [address] 1 04/01/2023 14:43:02 04/02/2023 09:06:18 Deliveries by 798026163 O82 Obesity 620740083 E66.9 Gestation period, 34 weeks 19621784 Z3A.34 [id number] [facility] [address],[place] [address] 04/08/2023 09:46:49 04/08/2023 10:39:50 Maternal obesity complicating , childbirth and the puerperium, antepartum 8696392808 07 O99.213 [id number] Nayely Blum [facility] [address],[place] [address] 1 04/08/2023 09:47:08 04/08/2023 11:44:33 Maternal obesity complicating , childbirth and the puerperium, antepartum 0346616237 07 O99.213 Z3A.35 [id number] Bear Masters MD [facility] [address],[place] [address] 1 04/08/2023 09:47:27 04/08/2023 12:12:52 [id number] [facility] [address],[place] [address] 1 04/15/2023 09:50:14 04/15/2023 10:34:25 Maternal obesity complicating , childbirth and the puerperium, antepartum 8503780219 07 O99.213 [id number] Taryn Maravilla [facility] [address],[place] [address] 1 04/15/2023 09:50:45 04/15/2023 10:57:27 Maternal obesity complicating , childbirth and the puerperium, antepartum 1541346680 07 O99.213 Z3A.35 [id number] KACY TITUS MD [facility] [address],[place] [address] 1 04/15/2023 09:51:02 04/15/2023 11:08:58 Elevated blood-pressure reading without diagnosis of hypertension 835844874 R03.0 Gestation period, 36 weeks 50537794 Z3A.36 Deliveries by 915624490 O82 Obesity 910565505 E66.9 [id number] [facility] [address],[place] [address] 04/22/2023 10:13:56 04/22/2023 11:11:18 Maternal obesity complicating , childbirth and the puerperium, antepartum 2876986181 07 O99.213 [id number] [facility] [address],[place] [address] 04/22/2023 10:15:46 04/22/2023 11:10:11 Maternal obesity complicating , childbirth and the puerperium, antepartum 8169669649 07 O99.213 Z3A.37 [id number] KACY TITUS MD [facility] [address],[place] [address] 1 04/22/2023 10:16:16 04/22/2023 11:10:49 Deliveries by 661110356 O82 Obesity 586167041 E66.9 [id number] [facility] [address],[place] [address] 1 04/29/2023 09:45:11 04/29/2023 11:30:22 Maternal obesity complicating , childbirth and the puerperium, antepartum 8062323288 07 O99.213 [id number] [facility] [address],[place] [address] 1 04/29/2023 09:49:05 04/29/2023 11:31:02 Maternal obesity complicating , childbirth and the puerperium, antepartum 2445028575 07 O99.213 Z3A.38 [id number] KACY TITUS MD [facility] [address],[place] [address] 1 04/29/2023 09:49:27 04/29/2023 14:54:28 Deliveries by 875396495 O82 Obesity 680904794 E66.9 Gestation period, 38 weeks 51755918 Z3A.38 [id number] Bear Masters MD [facility] [address],[place] [address] 05/06/2023 06:25:47 05/06/2023 06:29:27 [id number] Bear Masters MD [facility] [address],[place] [address] 05/13/2023 15:03:40 05/13/2023 16:12:36 -induced hypertension 46552480 O13.9 32-year-ol d female who presents for [...] to check her blood pressures at home. [id number] Bear Masters MD [facility] [address],[place] [address] 06/25/2023 15:10:45 06/25/2023 15:57:34 care 741302870 Z39.2 This patient is a 32-year-ol d female who presents for follow-up. Her mood is good. Her baby is doing well. Her baby is bottle feeding. She has not had sex. Her bleeding has resolved. She has had a tubal ligation or salpingect santiago. She will return in 2 months for well-woman exam. She has no complaints . [id number] SHANI Rich [facility] [address],[place] [address] 06/22/2024 16:30:01 06/23/2024 12:22:13 Gynecologic examination 78669884 Z01.419 WWEBC - BTLPap - done todaySTI [...] 25 dietary consult advised. Questions answered. Vaginitis 36383711 N76.0 rx sent for yeast, r/b/a reviewedvu lvar care guidelines discussed Venereal d isease screening 074324521 Z11.3 Adult heal th examination 514869874 Z00.00 Sexually t ransmitted infectious disease 6159914 A64 Health Concerns Section Related Observation LastModified by Organization Kristian neumann LastModified Time None Recorded Concern Status LastModified by Organization Details LastModified Time None Recorded Advance Directives Directive N: Payers Encounter Date Sequence Insurance Name Policy Number Policy Azevedo Covered Member ID Azevedo Member ID Guarantor Name 04/29/2023 1 [facility] ON OR AFTER 10/19/20 (MEDICAID REPLACEMENT - HMO) Henrietta Bernardwood [id number] [facility] 05/02/2023 1 [facility] ON OR AFTER 10/19/20 (MEDICAID REPLACEMENT - HMO) Henrietta Bernardwood [id number] [facility] 05/13/2023 1 [facility] ON OR AFTER 10/19/20 (MEDICAID REPLACEMENT - HMO) Henrietta Emely [id number] Henrietta [place] 06/25/2023 1 *SELF PAY* Nh berta [place] 06/22/2024 1 *SELF PAY* Nh berta [place] Notes Date Note Type Note Provider Name [...] home. Bear Masters MD [address], [place], [address], [facility] 05/13/2023 16:11:52 06/25/2023 text/html This patient [...] complaints. Bear Masters MD [address], [place], [address], [facility] 06/25/2023 15:46:44 06/22/2024 text/html Annual GYNReport [...] testing today SHANI Rich [address], [place], [address], [facility] 06/23/2024 11:32:51 OBGyn Episode Ob Episode Information Episode Created Date Number of Fetuses Patient Bloodtype Patient rh Status Prepregnancy Weight lbs Domestic Partner Domestic Partner Phone Father Name Hand Carver Status 08/04/19 20 1 O Negative 230 CLOSED Fetus Data First Name Last Name Admitted to NICU Weight (g) Sex Living Outcome Pediatric Complications Fetus ID Race Codes Race Delivery Type 3061.74 6 M true Full Term 448 Primary Problems Problem Notes Lower extremity edema observe for potential preeclampsia Problem Name Start Date End Date Resolution Snomed Code Not e Obesity 08/27/2019 343850392 testing at 32 weeks Gestational diabetes mellitus 91142927 12 units in AM and HS -induced hypertension 99703749 37 wk delivery - 12:01am 11/21 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 [id number] Tested + at out side facility [email or web address] [...] Gestation 0 [email or web address] 08/04/2019 12/13/19 20 0 Pre-nason Flowsheet Flowsheet Date 08/04/2019 Viveros Score Blood Edema Fundus Height Fundus Units Glucose Ketones Leukocytes Nitrite Labor Signs Protein Cervic Dilation Cervic Effacement Cervic Station 21 trace Type Weight in lbs Pre/Post Dialysis Refused Weight 234.938063147758 BP Diastolic BP Location Tested BP Systolic [...] Weight in lbs Pre/Post Dialysis Refused Weight 243.546437841057 BP Diastolic BP Location Tested BP Systolic [...] Weight in lbs Pre/Post Dialysis Refused Weight 237.997283789690 BP Diastolic BP Location Tested BP Systolic [...] Weight in lbs Pre/Post Dialysis Refused Weight 253.565491030833 BP Diastolic BP Location Tested BP Systolic [...] Weight in lbs Pre/Post Dialysis Refused Weight 250.437097509973 BP Diastolic BP Location Tested BP Systolic [...] Weight in lbs Pre/Post Dialysis Refused Weight 248.838921869018 BP Diastolic BP Location Tested BP Systolic [...] Present Fetus Movement Comments Flowsheet Date 10/25/2019 Vievros Score Blood Edema Fundus Height Fundus Units Glucose Ketones Leukocytes Nitrite Labor Signs Protein Cervic Dilation Cervic Effacement Cervic Station 33 Type Weight in lbs Pre/Post Dialysis Refused Weight 250.271138797961 BP Diastolic BP Location Tested BP Systolic [...] Weight in lbs Pre/Post Dialysis Refused Weight 250.879547610258 BP Diastolic BP Location Tested BP Systolic [...] Weight in lbs Pre/Post Dialysis Refused Weight 259.603173285379 BP Diastolic BP Location Tested BP Systolic [...] Weight in lbs Pre/Post Dialysis Refused Weight 256.310235881362 BP Diastolic BP Location Tested BP Systolic [...] Weight in lbs Pre/Post Dialysis Refused Weight 252.757642297360 BP Diastolic BP Location Tested BP Systolic [...] At Estimated Date of Delivery false Thalassemia ([place], Citizen Of [place], [place], Or Background): MCV < 80 false Neural Tube Defect (Meningom yelocele, Spina Bifida, Or Anencephaly) false Congenital Heart Defect false Down Syndrome false Иван-Sachs (eg, Catholic, Cajun, Georgian-Panamanian) f alse Ashlee Disease false Sickle Cell [...] Domestic Partner Domestic Partner Phone Father Name Hand Carver Status 01/04/20 20 1 DELETED Donell Calculation [...] Domestic Partner Domestic Partner Phone Father Name Hand Carver Status 10/20/19 21 1 O Negative 242 CLOSED Fetus Data First Name Last Name Admitted to NICU Weight (g) Sex Living Outcome Pediatric Complications Fetus ID Race Codes Race Delivery Type Kaela george [phone] 75 F true Full Term 54571 Repeat Problems Problem Notes CF/SMA negative 2019declines all vaccines Problem Name Start Date End Date Resolution Snomed Code Not e -induced hypertension 40009601 h/o GHTN, but n ot pre-eclampsia. Doesn't require testing. baseline PIH labs WNL Deliveries by To repeat domenico michael - 04/23/21- may need to be moved up due to uncontrolled DM Localized chest pain [id number] Cardiology - saw cards, CP resolved, FU with cards in May Marginal insertion of umbilical cord [id number] Serial ciro wth u/s Obesity 454816520 BMI 44 - 3 4 wk weekly testing Gestational diabetes mellitus [id number] INSULIN 20u @ H S, 4units before dinner 04/10, BS QID, testing RhD negative [id number] Donell Calculation Initial Donell Date Initial Exam [...] Date Ultra Sound Latest Days Gestation 0 [email or web address] 11/20/2020 05/03/19 22 0 Pre- Flowsheet Flowsheet Date 10/19/2020 Viveros Score Blood Edema Fundus Height Fundus Units Glucose Ketones Leukocytes Nitrite Labor Signs Protein Cervic Dilation Cervic Effacement Cervic Station neg none 12 trace Type Weight in lbs Pre/Post Dialysis Refused Weight 235.265975433323 BP Diastolic BP Location Tested BP Systolic [...] Weight in lbs Pre/Post Dialysis Refused Weight 233.103748603613 BP Diastolic BP Location Tested BP Systolic [...] Weight in lbs Pre/Post Dialysis Refused Weight 234.151896178609 BP Diastolic BP Location Tested BP Systolic [...] Weight in lbs Pre/Post Dialysis Refused Weight 235.921577042916 BP Diastolic BP Location Tested BP Systolic [...] Weight in lbs Pre/Post Dialysis Refused Weight 232.14429111740 BP Diastolic BP Location Tested BP Systolic [...] Weight in lbs Pre/Post Dialysis Refused Weight 233.065175649211 BP Diastolic BP Location Tested BP Systolic [...] Weight in lbs Pre/Post Dialysis Refused Weight 230.704209400798 BP Diastolic BP Location Tested BP Systolic [...] Weight in lbs Pre/Post Dialysis Refused Weight 231.769261075489 BP Diastolic BP Location Tested BP Systolic [...] Weight in lbs Pre/Post Dialysis Refused Weight 234.587785835070 BP Diastolic BP Location Tested BP Systolic [...] Weight in lbs Pre/Post Dialysis Refused Weight 235.364856066875 BP Diastolic BP Location Tested BP Systolic [...] Weight in lbs Pre/Post Dialysis Refused Weight 235.937498230127 BP Diastolic BP Location Tested BP Systolic [...] Weight in lbs Pre/Post Dialysis Refused Weight 234.901170541356 BP Diastolic BP Location Tested BP Systolic [...] Weight in lbs Pre/Post Dialysis Refused Weight 235.529681468109 BP Diastolic BP Location Tested BP Systolic [...] Weight in lbs Pre/Post Dialysis Refused Weight 221.600698586045 BP Diastolic BP Location Tested BP Systolic [...] Estim ated Date of Delivery false Thalassemia (Burundian, Citizen Of [place], Mediterranean, Or Background): MCV < 80 false Neural Tube Defect (Meningomyelocele, Spina Bifi da, Or Anencephaly) false Congenital Heart Defect false Down Syndrome false Иван-Sachs (eg, Catholic, Cajun, Georgian-Panamanian) f alse Ashlee Disease false Sickle Cell Disease Or Trait () false Hemophilia Or Other Blood Disorders false Muscular Dystrophy false Cystic Fibrosis false Crocheron's Chorea false Intellectual Disability/Autism false If Yes, [...] Domestic Partner Domestic Partner Phone Father Name Hand Carver Status 06/29/19 23 1 CLOSED Fetus Data First Name Last Name Admitted to NICU Weight (g) Sex Living Outcome Pediatric Complications Fetus ID Race Codes Race Delivery Type , Spontane ous [id number] Donell Calculation Initial Donell Date Initial Exam [...] Domestic Partner Domestic Partner Phone Father Name Hand Carver Status 11/02/19 23 1 O Negative 224 CLOSED Fetus Data First Name Last Name Admitted to NICU Weight (g) Sex Living Outcome Pediatric Complications Fetus ID Race Codes Race Delivery Type 3373.59 05 F true Full Term 03669 Repeat Problems Problem Notes failed 1hr/passed 3hr. *01/21 1 - NL 2hr gtt at 28wks. 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177449571181 BP Diastolic BP Location Tested BP Systolic [...] Weight in lbs Pre/Post Dialysis Refused Weight 219.419052671565 BP Diastolic BP Location Tested BP Systolic [...] Weight in lbs Pre/Post Dialysis Refused Weight 219.565794160602 BP Diastolic BP Location Tested BP Systolic [...] Weight in lbs Pre/Post Dialysis Refused Weight 218.209104752997 BP Diastolic BP Location Tested BP Systolic [...] Weight in lbs Pre/Post Dialysis Refused Weight 215.042770309696 BP Diastolic BP Location Tested BP Systolic [...] Weight in lbs Pre/Post Dialysis Refused Weight 218.142972881609 BP Diastolic BP Location Tested BP Systolic [...] Weight in lbs Pre/Post Dialysis Refused Weight 220.959815251452 BP Diastolic BP Location Tested BP Systolic [...] Weight in lbs Pre/Post Dialysis Refused Weight 218.745718675914 BP Diastolic BP Location Tested BP Systolic [...] Weight in lbs Pre/Post Dialysis Refused Weight 225.702596384885 BP Diastolic BP Location Tested BP Systolic [...] Weight in lbs Pre/Post Dialysis Refused Weight 222.459254249823 BP Diastolic BP Location Tested BP Systolic BP Type 87 141 73 111 Fetus Heart Rate Present A 140 Fetus Movement A Yes Comments Doing well overall, some BH contractions. No LOF/VB. Good movement. BPP 8/8, transverse head maternal left. CS scheduled 05/02. WIll repeat BP today as elevated on arrival, however henry reports increased stress 2/2 grandmother passing away just before [place] and grandfather having surgery today. Flowsheet Date [...] Weight in lbs Pre/Post Dialysis Refused Weight 225.006615729103 BP Diastolic BP Location Tested BP Systolic [...] Weight in lbs Pre/Post Dialysis Refused Weight 225.231729200073 BP Diastolic BP Location Tested BP Systolic [...] Estim ated Date of Delivery false Thalassemia (Burundian, Citizen Of The [place], Mediterranean, Or Background): MCV < 80 false Neural Tube Defect (Meningomyelocele, Spina Bifi da, Or Anencephaly) false Congenital Heart Defect false Down Syndrome false Иван-Sachs (eg, Catholic, Cajun, Georgian-Panamanian) f alse Ashlee Disease false Sickle Cell [...]
--- NOTE | 2024-08-11 07:22 | WPDHPUPDATE1 ---
History and Physical Update Update Date/Time: 08/11/24 07:22 History and Physical has been reviewed, including an updated exam of the patient. There are NO changes in the patient's condition. Risks, benefits, and alternatives have been discussed and questions answered. Patient agrees to proceed with procedure.
[2024-08-11] MEDS: LACTATED RINGERS 1,000 ML 30 ML IV CONT ×2 (09:20→13:30)
[2024-08-11] MEDS: ACETAMINOPHEN 500 MG TABLET 1000 MG PO (09:33)
[2024-08-11] MEDS: CELECOXIB 200 MG CAPSULE PO (09:33)
--- NOTE | 2024-08-11 10:28 | WPDANESPNB ---
Anes - Peripheral Nerve Block Date/Time: 08/11/24 10:28 I have discussed with the patient/family/POA the placement of a peripheral nerve block for post-operative pain management, including associated risks, benefits, complications, and side effects. Alternative methods of post-operative analgesia were detailed. Questions were solicited and answers provided to the satisfaction of the patient/family/POA. Time-Out: A pre-procedural Time-Out was completed immediately before starting the procedure and confirmed: Patient Identification, Site, Procedure, Patient Position and the Availability of Requisite Equipment. Clinical Indications: Acute post-operative pain management requested by the operative surgeon. Nerve Block Insertion Note Anes-nerve block: adductor canal left Patient position: supine Skin prep: chlorhexidine Needle: 22 gauge, stimulating, insulated echogenic needle. Needle length: 80 mm Technique: ultrasound Injectate: bupivacaine 0.5% with epi 5 mcg/ml (30cc - no epi) Observations: tolerated well Complications: none Procedure start time:: 1022 Procedure end time:: 102
[2024-08-11] MEDS: ceFAZolin 2 GM/D5W 50 ML 2 GM/50 ML BAG IVPB (10:32)
[2024-08-11 11:00] LABS: BEDSIDEPREGUCG Negative (Negative)
[2024-08-11] MEDS: BUPIVACAINE/EPINEPHRINE 0.5% 50 ML VIAL 30 ML INFILTRATE (11:34)
--- NOTE | 2024-08-11 13:22 | P.OP_ITS ---
Procedure Note - Detailed Date of Procedure 08/11/24 Pre-op Diagnosis left knee medial meniscal tear, ACL rupture Post-op Diagnosis Same Procedure Performed LEFT ACL RECONSTRUCTION, PARTIAL MEDIAL MENISCECTOMY Surgeon Golden Ulloa MD Anesthesia General Description of Procedure PATIENT WAS TAKEN TO THE OR. GENERAL ANESTHESIA WAS INDUCED. THE LEFT KNEE WAS TAKEN THROUGH A RANGE OF MOTION AND A PIVOT SHIFT TEST WAS PREFORMED AND THIS WAS POSITIVE. A [place] TEST AND ANTERIOR DRAWER TESTS WERE ALSO PREFORMED AND BOTH SHOWED LAXITY OF THE ACL. THE LEFT LEG WAS PREPPED AND DRAPED STERILE. TROCARS WERE PLACED IN THE USUAL FASHION. CAMERA WAS INTRODUCED. THERE WAS NO CHONDROMALACIA TO THE PATELLA FEMORAL JOINT. THE MEDIAL COMPARTMENT SHOWED MILD CHONDROMALACIA TO THE MEDIAL FEMORAL CONDYLE. THERE WAS A COMPLEX BUCKET HANDLE TEAR TO THE MEDIAL MENISCUS. THE TEAR WAS UN REPAIRABLE DUE TO THE COMPLEX NA TURE OF THE MENISCUS. THE TEAR WAS RESECTED WITH A SHAVER AND BITER DOWN TO A SMOOTH BASE. NEXT THE ACL WAS IDENTIFIED AND FOUND TO BE COMPLETELY TORN. THE LATERAL MENISCUS WAS NOT TORN. THE LATERAL COMPARTMENT HAD NO CHONDROMALACIA. THE ACL REMNANTS WERE THEN THEN DEBRIDED UNTIL THE PCL WAS IDENTIFIED AND THE SUPERIOR LATERAL NOTCH WAS IDENTIFIED. A NOTCH PLASTY WAS PREFORMED UNTIL THE OVER THE TOP POSITION WAS SEEN. A MEDIAL INCISION WAS MADE MEDIAL TO THE TIBIAL TUBERCLE AND DISSECTION CONTINUED DOWN TO BONE. A TIBIAL ACL GUIDE WAS PLACED UP AGAINST THE PCL AND WAS SET AT 55 DEG POSITION. A GUIDE PIN WAS DRILLED THROUGH THE GUIDE EXITING JUST ANTERIOR TO THE PCL STUMP. A 9 MM TIBIAL TUNNEL WAS DRILLED. A #7 BACK WALL GUIDE WAS PLACED OVER THE GUIDE PIN AT THE 2 O'CLOCK POSITION ON THE FEMUR. A 9 MM FEMORAL TUNNEL WAS DRILLED TO 30 MM. AN ALLOGRAFT ATTACHED TO A TIGHT ROPE SYSTEM. THE ALLOGRAFT WAS PASSED THROUGH THE TIBIAL AND FEMORAL TUNNELS. THE TIGHT ROPE WAS THEN TIGHTENED AND THE ENDO BUTTON WAS SECURED OVER THE SUPERIOR LATERAL FEMORAL CORTEX. WITH THE KNEE AT 30 DEG OF FLEXION AND TENSION ON THE TIBIAL SIDE OF THE ALLOGRAFT, A 9 mm BY 20 mm ARTHREX TISSUE INTERFERENCE SCREW WAS PLACED IN THE TIBIAL TUNNEL OVER A GUIDE WIRE. THE SCREW HAD AN EXCELLENT BITE. THE KNEE WAS TAKEN THROUGH A RANGE OF MOTION AND THE ACL WAS VERY STABLE. NEXT AN INTERNAL BRACE SYSTEM WAS PLACED USING AN ARTHREX SWIVEL LOCK ANCHOR WITH AN EXCELLENT BITE. A SYNOVECTOMY WAS PREFORMED IN THE PATELLO FEMORAL JOINT AND IN THE MEDIAL COMPARTMENT. THEN THE PATELLA AND TROCHLEA WERE IDENTIFIED AGAIN AND HAD NO CHONDROMALACIA. THE SURFACE WAS SMOOTH AND THE PATELLA TRACKED WITHOUT TILT. THE INSTRUMENTS WERE REMOVED AFTER THOROUGH IRRIGATION OF THE KNEE JOINT. THE WOUNDS WERE WASHED. THE TROCAR WOUNDS WERE APPROXIMATED WITH 4-0 NYLON. THE TIBIA WOUND WAS APPROXIMATED WITH 0 VICRYL, 2-0 VICRYL AND 3-0 QUILL SUTURE. THE WOUNDS WERE WASHED. DERMABOND AND THEN A STERILE DRESSING WAS APPLIED. A BRACE WAS PLACED.PATIENT WAS EXTUBATED. Estimated Blood Loss -30.0 Drains No Complications No immediate complications Condition Stable Disposition PACU
[2024-08-11] MEDS: fentaNYL CITRATE INJ (*CRX) 100 MCG/2 ML VIAL 25 MCG IV PUSH ×8 (14:00→14:30)
[2024-08-11] MEDS: ONDANSETRON INJ 4 MG/2 ML VIAL IV PUSH (14:00)
[2024-08-11] MEDS: HYDROmorphone HCL INJ (*CRX) 2 MG/ML VIAL 0.5 MG IV PUSH ×2 (14:48→14:58)
[2024-08-11] MEDS: oxyCODONE HCL (*CRX) 5 MG TAB IR PO (15:13)
--- NOTE | 2024-08-11 15:43 | SUR.PHASEII ---
1542 - dr. wilkins in room talking with pt
== END 2024-08-11 15:59 | disposition home or self-care (01) ==
PROVIDERS: Visit Provider Orthopaedic Surgery
PROC: (CPT 29888; principal; 2024-08-11 10:30)
DX: S83.232A Complex tear of medial meniscus, current injury, left knee, initial encounter (principal); M94.262 Chondromalacia, left knee; G89.18 Other acute postprocedural pain; F17.210 Nicotine dependence, cigarettes, uncomplicated; F12.90 Cannabis use, unspecified, uncomplicated; X58.XXXA Exposure to other specified factors, initial encounter; E66.01 Morbid (severe) obesity due to excess calories; Z68.42 Body mass index [BMI] 45.0-49.9, adult; Z79.1 Long term (current) use of non-steroidal anti-inflammatories (NSAID); Z79.891 Long term (current) use of opiate analgesic; Z98.890 Other specified postprocedural states; Z80.9 Family history of malignant neoplasm, unspecified; Z82.49 Family history of ischemic heart disease and other diseases of the circulatory system
CPT/HCPCS: 64447; 29881; 29888; A9270; C1713; J0690; J1100; J1171; J2003; J2250; J2405; J2704; J3010; J7120; L1830